=== PATIENT | female | born 1955 | race Caucasian/White ===

== ENCOUNTER → 2016-12-23 | Outpatient (CLI) | payer BC ==
[~2016-12-23] MED LIST: ALBU17AE3 IH; ALPH1TAB8 PO; AMLO5TAB2 PO; ASP325TEC PO; ASP81TEC PO; ATOR40TA70 PO; CIPR500T78 PO; CLOP75TA28 PO; DIPH25TA82 PO; DOCU100T7 PO; ENALAPRIL; FAMO20TA5 PO; FURO20TA4 PO; FURO40TA4 PO; LOSA100T28 PO; LOSA100T7 PO; LOSA1TAB23 PO; LOSA50TA6 PO; LOSARTAN PO; MELO15TA39 PO; METR500T PO; MTP25TSR PO; MULT-963 PO; OXYC-12 PO; PNT40TEC PO; POLY17PO6 PO; RT-ALBUINH IH; SENN-75 PO; SIMV20TA3 PO; TRAZ150T42 PO; [UNRECOGNIZED DRUG - CODE] PO
--- NOTE | 2016-12-23 17:16 | Diagnostic Imaging Report ---
Bilateral screening mammogram The current study was also evaluated with a Computer Aided Detection (CAD) system. Indication: Screening. No current complaints stated on the questionnaire. COMPARISON: 09/07/13 Findings: The breasts are composed of scattered for progression of densities. There are scattered benign-appearing calcifications. Allowing for technique and positional differences, no suspicious change is seen. IMPRESSION: No significant change. ACR BI-RADS Category 2: Benign findings. Result letter will be mailed to the patient. Note: At least 10% of breast cancer is not imaged by mammography. Dictated by: Dictated on workstation # [id number]
== END ==
LOC: RAD 09:54
PROVIDERS: ATTEND Family Medicine
DX: Z12.31 Encounter for screening mammogram for malignant neoplasm of breast (principal)
CPT/HCPCS: 77067

== ENCOUNTER → 2017-02-24 | Outpatient (CLI) | payer BC ==
--- NOTE | 2017-02-24 14:32 | Diagnostic Imaging Report ---
INDICATION: Right rib injury from a fall. 3 views of the right ribs do not show any displaced fractures. There is no effusion or pneumothorax. IMPRESSION: Negative right ribs. Dictated by: Dictated on workstation # [id number]
== END ==
LOC: RAD 12:27
PROVIDERS: ATTEND Nurse Practitioner Family
DX: S20.01XA Contusion of right breast, initial encounter (principal); S29.9XXA Unspecified injury of thorax, initial encounter; W19.XXXA Unspecified fall, initial encounter; Y99.8 Other external cause status
CPT/HCPCS: 71100

== ENCOUNTER → 2017-08-01 | Outpatient (CLI) | payer BC ==
--- NOTE | 2017-08-02 10:42 | Diagnostic Imaging Report ---
INDICATION: Palpable lump in the right breast. The patient reports sustaining an injury to the right breast in February at the site of the palpable abnormality. COMPARISON: Correlation is made with the prior mammograms from 12/23/2016 and 09/07/2013. RIGHT DIAGNOSTIC MAMMOGRAM: TECHNIQUE: Right-sided CC, MLO, and mediolateral 3-D mammography was performed. In addition, spot compression CC and ML views were performed. The current study was also evaluated with a Computer Aided Detection (CAD) system. FINDINGS: There is an area of increased density in the retroareolar and slightly outer aspect of the right breast, new since the prior study from December 2016. This does correlate with the area of the patient's palpable fullness and the area of injury reported by the patient. No malignant appearing microcalcifications are seen. The right axilla is unremarkable. IMPRESSION: There has been development of an area of slightly irregular increased density in the retroareolar and outer right breast at the area of palpable fullness and prior injury. Further evaluation of this area with ultrasound is recommended. RIGHT BREAST ULTRASOUND: Sonographic interrogation of the area of palpable abnormality in the right breast was performed. There is a heterogeneous region of mixed echogenicity at the 7:30 location of the right breast approximately 1-3 cm from the nipple. This area measures 4.9 x 1.0 x 2.4 cm. There is a cystic area within this. This may represent an area of prior trauma and resolving hematoma. Even so, close followup is recommended. No other abnormalities are seen. IMPRESSION: There is a mixed region of heterogeneity at the area of palpable abnormality at the 7:30 location of the right breast. This may represent an area of resolving hematoma from prior injury. Close followup with a repeat right breast ultrasound in 2-3 months is recommended to confirm resolution and improvement. If this region does not improve, biopsy may be indicated. ACR BI-RADS Category 3: Probably benign findings. Result letter will be mailed to the patient. Note: At least 10% of breast cancer is not imaged by mammography. Dictated by: Dictated on workstation # [id number]
== END ==
LOC: RAD 12:31
PROVIDERS: ATTEND Nurse Practitioner Family
DX: N63.10 Unspecified lump in the right breast, unspecified quadrant (principal)

== ENCOUNTER 2018-02-22 19:54 | Outpatient (CLI) | payer BC | END 2018-02-23 05:55 | disposition home or self-care (01) | LOC: SLEEP 19:54 | DX: G47.33 Obstructive sleep apnea (adult) (pediatric) (principal) | CPT/HCPCS: 95810 ==

== ENCOUNTER 2018-05-16 11:23 | Outpatient (RCR) | payer BC ==
[~2018-05-16 11:23] MED LIST changes: +AMLO5TAB7 PO; -LOSA100T28 PO; +LOSA100T8 PO
== END 2018-07-17 | disposition home or self-care (01) ==
LOC: CARD 11:23
PROVIDERS: ATTEND Family Medicine
DX: I48.91 Unspecified atrial fibrillation (principal); R00.2 Palpitations
CPT/HCPCS: 93270

== ENCOUNTER 2018-09-22 08:49 | Observation (INO) | payer BC ==
[~2018-09-22] VITALS: Ht 162.6 cm; Wt 122.5 kg
[~2018-09-22 08:49] MED LIST changes: -AMLO5TAB7 PO; +AMLO5TAB9 PO; +LOSA100T57 PO; -LOSA100T8 PO
--- OUTSIDE RECORDS SUMMARY | 2018-09-22 08:56 | XMS REPORT | Encounter Summary ---
Author Author [facility] Organization [facility] Address Unknown Phone Unavailable Care Team Providers Care Journeyman Power Plant Operator Name Role Phone Kena Stoner MD PCP Tata Cohen MD Unavailable Christal Anderson RN Unavailable Unavailable Karina Tobias RN Unavailable Unavailable Marisol Toth RN Unavailable Unavailable Bethany Farris MD Unavailable Alexia Goldsmith Unavailable Unavailable Keshia Reveles RN Unavailable Unavailable Reason for Visit * Auth/Cert Referred By Contact Referred To Contact Status Reason Specialty Diagnoses / Procedures Diagnoses Pulmonary HTN (HCC) Chest pain, unspecified type Procedures OK R & L HRT CATH WINJX HRT ART& L VENTR IMG OK PRQ TRLUML CORONARY STENT W/ANGIO ONE ART/BRNCH ANGIOGRAPHY CORONARY ARTERY WITH RIGHT AND LEFT HEART CATHETERIZATION POSSIBLE PERCUTANEOUS CORONARY STENT PLACEMENT WITH ANGIOPLASTY Encounter Details Care Team Description Date Type Department Lloyd Chaudhari MD [address] [facility] [place] [address] [phone] 07/06/2018 Hospital Cardiovascular Medicine Encounter [place] [address] [address] [place] [address] Social History Date Tobacco Use Types Packs/Day Years Used Never Smoker Smokeless Tobacco: Never Used Alcohol Use Drinks/Week oz/Week Comments No 0 Standard 0.0 drinks or equivalent Sex Assigned at Date Recorded Not on file Industry Job Start Date Occupation Not on file Not on file Not on file Travel End Travel History Travel Start No recent travel history available. as of this encounter Plan of Treatment Not on fileas of this encounter Procedures Comments Procedure Name Priority Date/Time Associated Diagnosis HOLTER WEARABLE ECG [facility] 07/13/2018 MONITOR CONNECT + SCAN 8:59 AM CHAIR CANER in this encounter Visit Diagnoses Not on filein this encounter
--- OUTSIDE RECORDS SUMMARY | 2018-09-22 08:56 | XMS REPORT | Encounter Summary ---
Author Author [facility] Organization [facility] Address Unknown Phone Unavailable Care Team Providers Care Corn Cutter Operator Name Role Phone Kena Stoner MD PCP Tata Cohen MD Unavailable Christal Anderson RN Unavailable Unavailable Karina Tobias RN Unavailable Unavailable Marisol Toth RN Unavailable Unavailable Bethany Farris MD Unavailable Alexia Goldsmith Unavailable Unavailable Keshia Reveles RN Unavailable Unavailable Reason for Referral * Consult, Test & Treat (Routine) Referred By Contact Referred To Contact Status Reason Specialty Diagnoses / Procedures Lloyd Chaudhari MD [address] [address] [place] [address] [address] [place] [address] No Auth Needed Cardiology Procedures REQUEST FOR CARDIOLOGY APPOINTMENT Reason for Visit * Reason Comments Cardiac Eval SVT * Consult, Test & Treat (Routine) Referred By Contact Referred To Contact Status Reason Specialty Diagnoses / Procedures Lloyd Chaudhari MD [address] [address] [place] [address] [address] [place] [address] No Auth Needed Cardiology Procedures REQUEST FOR CARDIOLOGY APPOINTMENT Encounter Details Care Team Description Date Type Department Lloyd Chaudhari MD [address] [address] [phone] Jeremy Layne MD [address] [address] [phone] Cardiac Eval (SVT) 09/21/2018 Office Visit Cardiovascular Medicine [address] [address] Social History Date Tobacco Use Types Packs/Day [...] travel history available. as of this encounter Last Filed Vital Signs Time Taken Vital Sign Reading 09/21/2018 9:43 AM CDT Blood Pressure 150/68 09/21/2018 9:43 AM CDT Pulse 55 - Temperature - - Respiratory Rate - - Oxygen Saturation - - Inhaled Oxygen - Concentration 09/21/2018 9:43 AM CDT Weight 125.6 kg (277 lb) 09/21/2018 9:43 AM CDT Height 162.6 cm (5' 4") 09/21/2018 9:43 AM CDT Body Mass Index 47.55 in this encounter Patient Instructions * Patient Instructions* China Jaquez RN - 09/21/2018 9:00 AM CDT Decrease your lasix dose to 40 mg per day for 3 days then take your lasix 80 mg on even days and Lasix 40 mg on odd days --Check your BP (Blood Pressure) daily and you may vary the time of day you check it. Monitor your blood pressure regularly Consider obtaining an automatic home blood pressure cuff if you don't already have one. Try to follow a low salt diet. If you smoke, make an honest effort to quit. Exercise helps with your blood pressure. Try to get at least 30 minutes of moderate intensity exercise at least 4 days a week. Your desired BP is with the top # less than 135 and bottom # less than 85. Call our office or your PCP if your blood pressure remains at or above the desired measurement consistently. If you have questions about your blood pressure readings, please contact the office and talk with Dr Chaudhari IMRDUR Increase the imdur to 30 mg twice per day IFsymptoms of palpitations continue call our office for an event monitor You should get an Event Monitor delivered to your home within 5 business days with instructions on how to use it. If you have questions or it does not arrive in 5 days, call our office. If you send many transmissions in just a few days or If you send transmissions with symptoms different than we've discussed, call our office and notify our nurse. f/u with Dr Chaudhari 4 - [address] weeks follow up with Dr Layne as needed In order to provide you the best care possible we ask that you follow up as below: For NON-URGENT questions please contact us through your [email or web address] account. For all medication refills please contact your pharmacy or send a request through [email or web address]. For all questions that may need to be addressed urgently please call the nursing triage line at [phone] Tuesday - Tuesday 8-5 only. Please leave a detailed message with your name, date of , and reason for your call. To schedule an appointment call [phone]. Please allow 10-15 business days for the results of any testing to be reviewed. Please call our office if you have not heard from a nurse within this time frame. in this encounter Progress Notes * Jeremy Layne MD - 09/21/2018 9:00 AM CDT Date of Service: 09/21/2018 India Blackwell is a 63 y.o. female. HPI I had the pleasure of seeing your patient India Blackwell in the [facility] as a part of the [facility] office today for initial Electrophysiolgy Consultation regarding her Tachypalpitations. She is typically followed and was referred by my partner Dr. Chaudhari, her primary supervisor denture department. Ms. Blackwell is an exceptionally pleasant 63 y.o. female, who is accompanied by her equally pleasant spouse, Shane. All data in this note, including the past medical history, was newly collected today. Her PMHx briefly includes: Palpitations; CAD S/P RCA Stent (10/2012); Hypertension; Hyperlipidemia; Pulmonary Hypertension; Morbid Obesity; Arthritis ; Prior SBO -- 10/31/12: [place], [place] - Heart Cath: EF 65%. single vessel disease. RCA - long up to 90% stenosis. PCI/Stent Promus 2.5 x 28 mm stent with reduction of stenosis to 0% residual. mild elevation left ventricular end-diastolic pressure, no significant mitral regurgitation. -- 05/10/13: MPI - Robinson. 9 min, 17 sec, 85% max pred HR. small amount of anteroapical ischemia, EF 66%, normal regional wall motion, normal LV cavity size -- 05/25/13: PCI by Dr. Tucker: Significant stenosis in the ostium of the RPDA which is a large vessel. Mild disease noted in the CFX and LAD. Successful percutaneous angioplasty using a 2.5 x 12 TREK balloon in the RPDA and a 3.25 x 15 NC TREK balloon in the RPLV using kissing balloon technique. No stent placement. -- 07/06/13: 60-70% RPDA, FFR neg, per Dr. Tucker -- 2012-06/2018: The patient was lost to follow up. -- 06/22/18: Echocardiogram: LVEF 60%, Normal LV cavity size with mild concentric LVH and normal systolic function. Technically normal diastolic function, although nearly all parameters are right at the upper limit of normal. No regional wall motion abnormalities. Normal right ventricle size and qualitative systolic function. Mild RA enlargement. Mitral annular calcification without stenosis. Aortic sclerosis without stenosis. Estimated peak systolic PA pressure=31 mmHg. Subcostal images were non-diagnostic. No obvious effusion on parasternal or apical images -- 07/05/18: OV (Dr. Chaudhari): R&LHC was recommended given the patient's complaints of SOA. She also complained of palpitations, so a Holter monitor was issued. -- 07/06/18: Cardiac Cath: Mild coronary artery disease involving the distal left main 20%, OM1 at 20%, distal RCA 20% and ostial PDA 30%. Normal pulmonary artery pressure with a mean pressure of 90 mmHg and normal cardiac index of 3.6 L/minute by thermo. Right internal jugular vein sheath and right common femoral artery sheath were sutured in place for manual pull. -- 07/06/18: Holter (48 hour): Mean HR 59 bpm, Max HR 92 bpm, Min HR 48 bpm. There was no atrial fibrillation seen. There was no atrial flutter seen. The rhythm was sinus with intermittent episodes of sinus arrhythmia. VT and QRS are within normal limits. (2213) single SVEs, (458) paired, (107) runs of SVT. (22) single VEs, trigeminy noted. Patient diary was submitted symptoms noted, patient triggered event noted. She STATES she has been experiencing symptoms of tachypalpitations over the last few months. She states thatMetoprololhas helped control her symptoms, though her symptoms are still present. has increased symptoms with activity, therefore, she decreased her activity. She states she will have tachypalpitations when walking, carrying things and has associated fatigue with her symptoms. She also reportslightheadedness. It is primarily postural. She denies any chest discomfort, shortness of breath, dizziness, near syncope or syncope, PND or orthopnea. FHx, SHx and ROS documented and I have reviewed, with some pertinent features to include: FHx of CAD (Mother). She is a Non-Smoker. Most pertinent ROS is included/discussed throughout the note, e.g. HPI and A/P. ASSESSMENT AND PLAN: -- Atrial Tachycardia -- Tachyalpitations -- CAD S/P RCA Stent (10/2012) -- Hypertension -- Hyperlipidemia -- Pulmonary Hypertension -- Morbid Obesity -- Arthritis -- Prior SBO Ms. Blackwell had documented SVT on a Holter, that appears to be an ATACH. Although there appears to be P waves before the QRS at times it is less clear and therefore I cannot definitively rule out AVNRT or another reentrant arrhythmia, but I think those are much less likely. Based on the results of the Holter Dr. Chaudhari initiated Lopressor. She states on Metoprolol and has had dramatic improvement in symptoms, but not resolution. She feels that activity brings on her palpitations and she has therefore been limiting her activities. It is important to note that when she had documented symptoms on the Holter, the majority of her rhythms were normal, but the symptoms complaint of tachypalpitations were relatively infrequent. Therefore, at this time, after we make adjustment as described below for her lightheadedness, if she still has symptoms, we will issue her a 30 day ELR and if she continues to have episodes of tachypalpitations correlating with her SVT , then we will likely stop Toprol and initiate Multaq most likely or alternatively therapy with Sotalol or Tikosyn. With regard to her lightheadedness, which almost seems to be a more significant complaint for her, at least at this time. After discussion, we will decrease her Lasix to two pills on even numbered days with one pill on odd numbered days. We will also increase her Imdur to 60 mg daily in divided doses. we also encouraged her to hydrate adequately and try wearing support stockings. PLAN: -- We will decrease her Lasix to 80 mg (two tablets) on even numbered days with 40 mg (one tablet) on odd numbered days -- We will increase her Imdur to 30 mg BID -- I have asked her to Check her BP (Blood Pressure) daily and vary the time of day she checks it. -- We discussed that exercise helps with her blood pressure and she should try to get at least 30 minutes of moderate intensity exercise at least 4 days a week. -- We discussed that her desired BP is less than 135 and less than 85. -- I asked her to try wearing 12-18 mmHg support stockings -- If she continues to have symptoms of palpitations, she will contact our office and we will issue her a monitor Ms. Blackwell was educated regarding plan of care. She was instructed to call our office with any questions or concerns, as well as to notify us of any new or worsening symptoms. She verbalized understanding. I appreciate the opportunity to participate in the care of your patient. Please do not hesitate to contact me directly if you have any questions or further insights into her care. I have scheduled her follow-up with me in 4-6 weeks. Vitals: 09/21/18 0943 BP: 150/68 Pulse: 55 Weight: 125.6 kg (277 lb) Height: 1.626 m (5' 4") Body mass index is 47.55 kg/m. Past Medical History Patient Active Problem List Diagnosis Date Noted Pulmonary hypertension due to left ventricular diastolic dysfunction (HCC) 06/23/2018 Shortness of breath 06/23/2018 Morbid obesity with BMI of 45.0-49.9, adult ([facility]) 06/23/2018 Angina of effort ([facility]) 07/06/2013 CAD (coronary artery disease) 05/15/2013 10/31/12 Via [facility], [place] - Heart Cath: EF 65%. single vessel disease. RCA - long up to 90% stenosis. PCI/Stent Promus 2.5 x 28 mm stent with reduction of stenosis to 0% residual. mild elevation left ventricular end-diastolic pressure, no significant mitral regurgitation. 05/10/13 MPI - Robinson. 9 min, 17 sec, 85% max pred HR. small amount of anteroapical ischemia, EF 66%, normal regional wall motion, normal left ventricular cavity size. 05/25/13: PCI by Dr. Tucker: Significant stenosis in the ostium of the RPDA which is a large vessel. Mild disease noted in the CFX and LAD. Successful percutaneous angioplasty using a 2.5 x 12 TREK balloon in the RPDA and a 3.25 x 15 NC TREK balloon in the RPLV using kissing balloon technique. No stent placement. 07/06/13: 60-70% RPDA, FFR neg, per Dr. Tucker Hypertension 05/15/2013 Hyperlipidemia 05/15/2013 Review of Systems Constitution: Positive for weakness. HENT: Negative. Eyes: Positive for blurred vision. Cardiovascular: Positive for chest pain, dyspnea on exertion, irregular heartbeat, leg swelling, near-syncope, palpitations and paroxysmal nocturnal dyspnea. Respiratory: Negative. Endocrine: Positive for polydipsia and polyuria. Hematologic/Lymphatic: Negative. Skin: Positive for dry skin. Musculoskeletal: Positive for arthritis. Gastrointestinal: Positive for excessive appetite and melena. Genitourinary: Positive for bladder incontinence, decreased libido and incomplete emptying. Neurological: Positive for dizziness, headaches and loss of balance. Psychiatric/Behavioral: Positive for depression and memory loss. The patient has insomnia and is nervous/anxious. Allergic/Immunologic: Negative. Physical Exam Constitutional: She is in no acute distress, resting comfortably. Skin/Integument: Warm and dry. Eyes: PERRL, sclera are non-icteric and no xanthelasmas noted. ENT: Hearing is intact, Oropharynx is clear and moist. Heme/Lym/Immun: Supple neck, without thyromegaly. Respiratory-Pulmonary/Chest: Effort normal and breath sounds normal. No respiratory distress or accessory muscle use. No obvious tracheal deviation. Clear to auscultation bilaterally. Cardiovascular: No evidence of increased jugular venous pressure, carotids are 2+/4+ equal bilaterally, without obvious bruit. Regular rhythm, S1, S2. 2/6 systolic murmur HBA the LLSB. No heaves, thrills or rubs. Musc/Skeletal-Extremities: Without significant peripheral edema. With what appears to be full ROM. Neuro: Patient is alert and oriented to person, place, and time. Psych: Patient does not appear anxious, she appears appropriate, with normal non-pressured speech and what appears to be appropriate judgement Cardiovascular Studies ECG today demonstrates sinus rhythm at 55 bpm with RBBB. No evidence of preexcitation. Problems Addressed Today Encounter Diagnoses Name Primary? Essential hypertension Yes Coronary artery disease involving [place] coronary artery of [place] heart without angina pectoris Palpitations Current Medications (including today's revisions) amLODIPine (NORVASC) 5 mg tablet Take 1 Tab by mouth daily. (Patient taking differently: Take 5 mg by mouth twice daily.) aspirin EC 81 mg tablet Take 81 mg by mouth daily. atorvastatin (LIPITOR) 40 mg tablet Take 1 Tab by mouth daily. diphenhydrAMINE (BENADRYL) 25 mg capsule Take 50 mg by mouth every 6 hours as needed. docusate (COLACE) 100 mg capsule Take 100 mg by mouth twice daily. ferrous sulfate (IRON PO) Take by mouth. furosemide (LASIX) 40 mg tablet Take one tablet by mouth every morning. for 3 days, then 80 mg even days, 40 mg odd days isosorbide mononitrate SR (IMDUR) 30 mg tablet Take one tablet by mouth twice daily. losartan(+) (COZAAR) 100 mg tablet Take 100 mg by mouth daily. meloxicam (MOBIC) 15 mg tablet Take 15 mg by mouth daily. metoprolol XL (TOPROL XL) 25 mg extended release tablet Take one tablet by mouth daily. OXYGEN-AIR DELIVERY SYSTEMS [facility] Use 2 L as directed. polyethylene glycol 3350 (MIRALAX) 17 g packet Take 17 g by mouth daily. traZODone (DESYREL) 50 mg tablet Take 75 mg by mouth at bedtime as needed. Documentation recorded by Michael Pablo, acting as scribe for Jeremy Layne M.D. in this encounter Plan of Treatment Order Schedule Name Priority Associated Diagnoses Ordered: 09/21/2018 ECG 12-LEAD Routine Essential hypertension Coronary artery disease involving [place] coronary artery of [place] heart without angina pectoris Palpitations as of this encounter Visit Diagnoses Diagnosis Essential hypertension - Primary Unspecified essential hypertension Coronary artery disease involving [place] coronary artery of [place] heart without angina pectoris Palpitations in this encounter
--- OUTSIDE RECORDS SUMMARY | 2018-09-22 08:56 | XMS REPORT | Encounter Summary ---
Author Author [facility] Organization [facility] Address Unknown Phone Unavailable Care Team Providers Care Manager Ambulatory Name Role Phone Kena Stoner MD PCP Tata Cohen MD Unavailable Christal Anderson RN Unavailable Unavailable Karina Tobias RN Unavailable Unavailable Marisol Toth RN Unavailable Unavailable Bethany Farris MD Unavailable Alexia Goldsmith Unavailable Unavailable Keshia Revelse RN Unavailable Unavailable Reason for Visit * Reason Comments Cardiac Device Remote Holter placed on patient and enrolled Enrollment Encounter Details Care Team Description Date Type Department Sam Hay Cardiac Device Remote Enrollment (Holter placed on patient and enrolled) 07/06/2018 Documentation Cardiovascular Medicine [facility] [place] [address] Social History Date Tobacco Use Types Packs/Day [...] travel history available. as of this encounter Progress Notes * Sam Hay - 07/06/2018 5:22 PM FARMWORK[employer] Holter Placement Record Ordering Physician: Lloyd Chaudhari Diagnosis: Chest pain Brand: CN Length: 48 hours Holter Number: [id number] Card Number: N/A [facility] where Holter was [facility] Will Holter be returned by mail? 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
--- OUTSIDE RECORDS SUMMARY | 2018-09-22 08:56 | XMS REPORT | Clinical Summary ---
Author Author [facility] Organization [facility] Address Unknown Phone Unavailable Care Team Providers Care Chief Estimator Name Role Phone Kena Stoner MD PCP Tata Cohen MD Unavailable Christal Anderson RN Unavailable Unavailable Karina Tobias RN Unavailable Unavailable Marisol Toth RN Unavailable Unavailable Bethany Farris MD Unavailable Alexia Goldsmith Unavailable Unavailable Keshia Reveles RN Unavailable Unavailable Source Comments Some departments are not documenting in the electronic medical record. If you do not see the information that you expected, contact Release of Information in the Health Information Management department at [phone] for further assistance in locating additional records.[facility] Allergies Comments Active Allergy Reactions Severity Noted Date Fish Containing Products ANAPHYLAXIS 05/16/2013 Medications End Date Status Medication Sig Dispensed Refills Start Date Active diphenhydrAMINE Take 50 mg by 0 (BENADRYL) 25 mg capsule mouth every 6 hours as needed. Active docusate (COLACE) 100 mg Take 100 mg 0 capsule by mouth twice daily. Active traZODone (DESYREL) 50 mg Take 75 mg by 0 tablet mouth at bedtime as needed. Active losartan(+) (COZAAR) 100 Take 100 mg 0 mg tablet by mouth daily. Active amLODIPine (NORVASC) 5 mg Take 1 Tab by 90 Tab 3 tabletIndications: mouth daily. 3 Hypertension Active atorvastatin (LIPITOR) 40 Take 1 Tab by 90 Tab 3 mg tablet mouth daily. 3 Active aspirin EC 81 mg tablet Take 81 mg by 0 mouth daily. Active meloxicam (MOBIC) 15 mg Take 15 mg by 0 tablet mouth daily. Active ferrous sulfate (IRON PO) Take by 0 mouth. Active polyethylene glycol 3350 Take 17 g by 0 (MIRALAX) 17 g packet mouth daily. Active metoprolol XL (TOPROL XL) Take one 90 tablet 3 25 mg extended release tablet by 9 tablet mouth daily. Active OXYGEN-AIR DELIVERY Use 2 L as 0 SYSTEMS MISC directed. Active furosemide (LASIX) 40 mg Take one 270 tablet 3 tablet tablet by 9 mouth every morning. for 3 days, then 80 mg even days, 40 mg odd days Active isosorbide mononitrate SR Take one 180 tablet 3 (IMDUR) 30 mg tablet tablet by 9 mouth twice daily. 09/21/2018 Discontinued isosorbide mononitrate SR Take 0.5 Tabs 90 Tab 3 (IMDUR) 30 mg by mouth 3 tabletIndications: CAD daily. (coronary artery disease) 09/21/2018 Discontinued furosemide (LASIX) 40 mg Take 40 mg by 0 tablet mouth daily. 2 tabs q am Active Problems Problem Noted Date Pulmonary hypertension due to left ventricular diastolic dysfunction 2017 Last Assessment & Plan: Plan for L/RHC with coronary angiography tomorrow for further evaluation. Shortness of breath 06/23/2018 Morbid obesity with BMI of 45.0-49.9, adult 06/23/2018 Angina of effort 07/06/2013 CAD (coronary artery disease) 05/15/2013 Overview: 10/31/12 [address] [place], [place] - Heart Cath: EF 65%. single [...] 07/06/13: 60-70% RPDA, FFR neg, per Dr. Caitlin Singh ast Assessment & Plan: We will plan to perform angiography to check for obstructive CAD as the etiology of her symptoms. Hypertension 05/15/2013 Last Assessment & Plan: Not currently well controlled. We will re-evaluate when she is admitted, but I anticipate adding HCTZ to her regimen. Goal BP <130/80. Hyperlipidemia 05/15/2013 Encounters Care Team Description Date Type Specialty Lloyd Chaudhari MD Emert, Martin P, MD Cardiac Eval (SVT) 09/21/2018 Office Visit Cardiology Aubrie Martínez RN Dizziness 08/21/2018 Telephone Cardiology Carol Patel RN Results 08/01/2018 Telephone Cardiology Aubrie Martínez RN Event Monitor Results 07/28/2018 Telephone Cardiology Lloyd Chaudhari MD 07/06/2018 Hospital Cardiology Encounter Lloyd Chaudhari MD ANGIOGRAPHY CORONARY ARTERY WITH RIGHT AND LEFT HEART CATHETERIZATION 07/06/2018 Surgery Cardiology Lloyd Chaudhari MD Angina of effort (HCC) 07/06/2018 Hospital Cardiology Encounter Sam Hay Cardiac Device Remote Enrollment (Holter placed on patient and enrolled) 07/06/2018 Documentation Cardiology Lloyd Chaudhari MD 07/05/2018 Hospital Cardiology Encounter Lloyd Chaudhari MD New To Provider (H&P for heart cath) 07/05/2018 Office Visit Cardiology Lore Collins APRN 07/03/2018 Pre-Admit Cardiology Orders Only Earnest Deleon RN Precertification (Approval for RHC with [facility] through [employer] [place]) 06/29/2018 Documentation Cardiology Aubrie Martínez RN Pulmonary HTN (HCC) (Primary Dx); Chest pain, unspecified type 06/28/2018 Prep for Case Cardiology from Last 3 Months Family History Medical History Relation Name Comments Coronary Artery Disease Mother Relation Name Status Comments Mother Social History Date Tobacco Use Types Packs/Day Years Used Never Smoker Smokeless Tobacco: Never Used Alcohol Use Drinks/Week oz/Week Comments No 0 Standard 0.0 drinks or equivalent Sex Assigned at Date Recorded Not on file Industry Job Start Date Occupation Not on file Not on file Not on file Travel End Travel History Travel Start No recent travel history available. Last Filed Vital Signs Time Taken Vital Sign Reading 09/21/2018 9:43 AM CDT Blood Pressure 150/68 09/21/2018 9:43 AM CDT Pulse 55 07/06/2018 11:41 AM MECHANIC HELPER Temperature 36.8 C (98.2 F) 06/22/2018 9:55 AM MECHANIC HELPER Respiratory Rate 16 07/06/2018 12:45 PM MECHANIC HELPER Oxygen Saturation 96% - Inhaled Oxygen - Concentration 09/21/2018 9:43 AM CDT Weight 125.6 kg (277 lb) 09/21/2018 9:43 AM CDT Height 162.6 cm (5' 4") 09/21/2018 9:43 AM CDT Body Mass Index 47.55 Plan of Treatment Health Maintenance Due Date Last Done Comments HEPATITIS C SCREENING 1955 PHYSICAL (COMPREHENSIVE) 1962 EXAM HIV SCREENING 1970 DTAP/TDAP VACCINES (1 - 1973 Tdap) CERVICAL CANCER SCREENING 1985 BREAST CANCER SCREENING 1995 INFLUENZA VACCINE 02/08/2018 SHINGLES RECOMBINANT 05/24/2018 03/29/2018 VACCINE (2 of 2) COLORECTAL CANCER 06/26/2025 06/26/2015 SCREENING Procedures Comments Procedure Name Priority Date/Time Associated Diagnosis HOLTER WEARABLE ECG MARCO 07/13/2018 MONITOR CONNECT + SCAN 8:59 AM MECHANIC HELPER CARDIAC CATH REPORT 07/06/2018 2:20 PM MECHANIC HELPER O2HGB SAT-VENOUS POC 07/06/2018 10:43 AM MECHANIC HELPER O2HGB SAT-VENOUS POC 07/06/2018 10:41 AM MECHANIC HELPER CARDIAC CATH REPORT Routine 07/06/2018 Pulmonary HTN (HCC) 8:01 AM MECHANIC HELPER Chest pain, unspecified type TELEMETRY STRIPS-SCAN 07/06/2018 12:00 AM MECHANIC HELPER PROCEDURE RECORD-SCAN 07/06/2018 12:00 AM MECHANIC HELPER CBC Routine 07/05/2018 Pulmonary hypertension 10:42 AM MECHANIC HELPER due to left ventricular diastolic dysfunction (HCC) BASIC METABOLIC PANEL Routine 07/05/2018 Pulmonary hypertension 10:42 AM MECHANIC HELPER due to left ventricular diastolic dysfunction (HCC) ECG-SCAN 07/05/2018 12:00 AM MECHANIC HELPER CARDIAC CATH REPORT Routine 06/28/2018 Pulmonary HTN (HCC) 12:32 PM MECHANIC HELPER Chest pain, unspecified type from Last 3 Months Results * HOLTER WEARABLE ECG MONITOR CONNECT + SCAN (07/13/2018 8:59 AM MECHANIC HELPER) Narrative Performed At OTHER OUTSIDE LAB Indication: Chest Pain Hookup date: 07/06/2018. Scan date: 07/13/2018. Start time: 12:40. The predominant rhythm shows sinus rhythm. Total beats recorded: [id number] Analysis time: 47 hr 49 min Mean HR: 59 bpm Maximum HR: 92 bpm at 09 hr 05 min on day 2 Minimum HR: 48 bpm at 05 hr 04 min on day 3 Ventricular prematurities - total: 25 Ventricular prematurities - pairs: 0 Ventricular prematurities - runs: 0 Supraventricular prematurities - total: 3147 Supraventricular prematurities - pairs: 458 Supraventricular prematurities - runs: 107 Supraventricular longest run: 23 beats at 17 hr 41 min on day 2 Supraventricular fastest run: 3 bpm at 07 hr 35 min on day 3 Junctional prematurities - total: 0 Pauses greater than 2 sec: 0 There is no atrial fibrillation seen. There is no atrial flutter seen. 1. The rhythm was sinus with intermittent episodes of sinus arrhythmia. 2. IA and QRS are within normal limits. 3. (2213) single SVEs, (458) paired, (107) runs of SVT. 4. (22) single VEs, trigeminy noted. 5. Patient diary was submitted symptoms noted, patient triggered event noted. Performing Organization Address City/State/Zipcode Phone Number OTHER OUTSIDE LAB * CARDIAC CATH REPORT (07/06/2018 2:20 PM MECHANIC HELPER) Procedure Note Lloyd Chaudhari MD - 07/06/2018 2:20 PM MECHANIC HELPER [facility] CARDIAC CATHETERIZATION REPORT Page 2 INDIA Cuevas : 1955 KU#: [id number] KU MR #/Billing ID #: [id number] / [id number] DATE: 07/06/2018 VRT MECHANIC: Lloyd Chaudhari MD DICTATING PROVIDER: Prieto Lyons MD REFERRING PHYSICIAN: CATHETERIZATION REPORT: Interventional Cardiology, Dr. Lloyd Chaudhari. Interventional business analyst sales operations, Prieto Lyons MD. PROCEDURE: 1. Left heart catheterization without ventriculogram. 2. Left coronary artery angiogram. 3. Right coronary artery angiogram. 4. Right heart catheterization. 5. Right internal jugular vein sheath and right common femoral artery sheath were sutured in place for manual pull. INDICATIONS PROCEDURE: Mrs. Blackwell is a 63-year-old female with a past medical history of hypertension , hyperlipidemia, coronary artery disease with history of PCI to the right coronary artery that was balloon angioplastied at the ostium of the PDA and a stent from the distal RCA to the posterolateral. has been having shortness of breath with minimal exertion and therefore she was brought in to the labor employment associate today for coronary evaluation and right heart catheterization. Consent: Informed consent was obtained from the patient after explaining all the benefits and risks of this procedure, which include, but not limited to , stroke, myocardial infarction, bleeding, infection, allergic reaction to contrast dye, aortic dissection, need for emergent bypass surgery, need for temporary pacemaker, need for temporary or permanent hemodialysis, groin hematoma, retroperitoneal hematoma, and cardiac tamponade. was also notified that Interventional business analyst sales operations will be assisting during the course of this procedure. informed consent was placed in the patient's chart. DESCRIPTION AND FINDINGS OF OPERATIVE PROCEDURE: After consent was obtained, patient was brought in the labor employment associate in a fasting state where she was prepped and draped in usual sterile fashion. out was obtained to verify patient, as well as site and type of the procedure. mL of 1% lidocaine was administered to the right neck and then with direct ultrasound guidance, we accessed the right internal jugular vein and an 8-Spanish [place] sheath was inserted. we advanced our 7-Spanish [place]-Ivy catheter. got sequential pressure in the RA, RV, PA and pulmonary capillary wedge pressure. also calculated cardiac output by Tri principle and measured cardiac output by thermodilution. , the current catheter was removed and then we attempted to get right radial artery access, we were not able to, given radial artery spasm . , we switched to the groin and 10 mL of 1% lidocaine was administered to incise the area over the right common femoral artery and with fluoroscopy guidance, we accessed the right common femoral artery with micropuncture needle and 5-Spanish pinnacle sheath was inserted. did the left heart catheterization using a TIG 4.0 5-Spanish catheter. see details of findings below. that, the catheter was removed and sheath was sutured in place for manual pull. Total contrast media on this study, amount used: mL of Isovue-370. Fluoro time was 3.0 minutes. Air Kerma total 325 mGy. Total conscious sedation time for this patient was [address] Chaudhari was physically present throughout the procedure, directly supervised the procedure, performed hercules portions of it. Hemodynamics findings: 1. Blood pressure 174/67 with a mean of 94, a heart rate of 63. 2. RA pressure 3 mmHg. 3. RV pressure 36/2. 4. PA pressure 31/11 with a mean of 19. 5. Pulmonary capillary wedge pressure 10 mmHg. 6. transpulmonary gradient 9 mmHg. 7. Pulmonary vascular resistance 1.1 Wood. 8. Cardiac output by thermodilution 7.8 L/minute with a cardiac index 3.6 L/ minute/sq m. 9. LV systolic pressure 177, LVEDP of 20 mmHg. 10. Aortic sat 100%. 11. RA sat 81%. 12. PA sat 78%. CORONARY ARTERIOGRAPHY: 1. Left main:from the left coronary cusp, bifurcates into LAD and left circumflex. was 20% distal left main disease. 2. LAD: It is a type 3 LAD that wraps around the apex, gives rise to multiple septal and diagonal branches with no significant disease. 3. Left circumflex arteryrise to 3 OM branches. has a 20% disease. , no significant disease. 4. Right coronary artery, there was 20% distal RCA disease. was 30% ostial PDA disease, unchanged from before. intervention was done. Conclusion: 1. Mild coronary artery disease involving the distal left main 20%, OM1 at 20% , distal RCA 20% and ostial PDA 30%. 2. Normal pulmonary artery pressure with a mean pressure of 90 mmHg and normal cardiac index of 3.6 L/minute by thermo. 3. Right internal jugular vein sheath and right common femoral artery sheath were sutured in place for manual pull. Recommendations: The patient has minimal coronary artery disease. patient is to continue medical therapy including aspirin, high-intensity statin, and beta-aishwarya as tolerated. Plan was discussed with Dr. Chaudhari, Interventional Cardiology attending who was physically present throughout the procedure, directly supervised the procedure and performed hercules portions of it. I was present during the entire procedure. I assisted and supervised the fellow' s action and agree with the assessment and recommendations as outlined above. Lloyd Chaudhari MD BLOOD / MEDRomario Job #: /[id number] p cc: Performing Organization Address City/[facility] Phone Number OTHER OUTSIDE LAB * O2HGB SAT-VENOUS POC (07/06/2018 10:43 AM MECHANIC HELPER) Only the most recent of 2 results within the time period is included. O2HGB SAT-Venous POC 77.8 (H) 55 - 71 % MAIN LAB Performing Organization Address [facility] Phone Number MAIN LAB [address] [place] [address] * TELEMETRY STRIPS-SCAN (07/06/2018 12:00 AM MECHANIC HELPER) Narrative Performed At Ordered by an unspecified provider. * PROCEDURE RECORD-SCAN (07/06/2018 12:00 AM MECHANIC HELPER) Narrative Performed At Ordered by an unspecified provider. * CBC (07/05/2018 10:42 AM MECHANIC HELPER) White Blood Cells 6.9 4.5 - 11.0 K/UL [facility] MAIN LAB RBC 4.52 4.0 - 5.0 M/UL [facility] MAIN LAB Hemoglobin 12.4 12.0 - 15.0 GM/DL [facility] MAIN LAB Hematocrit 37.4 36 - 45 % [facility] MAIN LAB MCV 82.7 80 - 100 FL [facility] MAIN LAB MCH 27.4 26 - 34 PG [facility] MAIN LAB MCHC 33.2 32.0 - 36.0 G/DL MAIN LAB RDW 13.8 11 - 15 % [facility] MAIN LAB Platelet Count 258 150 - 400 K/UL [facility] MAIN LAB MPV 8.4 7 - 11 FL [facility] MAIN LAB Specimen Blood Performing Organization Address [facility] Phone Number MAIN LAB [address] [place] [address] * BASIC METABOLIC PANEL (07/05/2018 10:42 AM MECHANIC HELPER) Sodium 141 137 - 147 MMOL/L [facility] MAIN LAB Potassium 4.3 3.5 - 5.1 MMOL/L [facility] MAIN LAB Chloride 105 98 - 110 MMOL/L [facility] MAIN LAB CO2 29 21 - 30 MMOL/L [facility] MAIN LAB Anion Gap 7 3 - 12 [facility] MAIN LAB Glucose 109 (H) 70 - 100 MG/DL [facility] MAIN LAB Blood Urea Nitrogen 25 7 - 25 MG/DL [facility] MAIN LAB Creatinine 0.94 0.4 - 1.00 MG/DL [facility] MAIN LAB Calcium 9.5 8.5 - 10.6 MG/DL [facility] MAIN LAB eGFR Non >60 >60 mL/min [facility] MAIN LAB Comment: The eGFR is not validated for use in drug dosing adjustments.Continue to use estimated creatinine clearance per dosing reference text.Please contact the Clinical Pharmacist for questions. eGFR >60 >60 mL/min [facility] MAIN LAB Comment: The eGFR is not validated for use in drug dosing adjustments.Continue to use estimated creatinine clearance per dosing reference text.Please contact the Clinical Pharmacist for questions. Specimen Blood Performing Organization Address City/State/Zipcode Phone Number MAIN LAB [address] [place] [address] * ECG-SCAN (07/05/2018 12:00 AM MECHANIC HELPER) Narrative Performed At Ordered by an unspecified provider. from Last 3 Months Insurance Payer Benefit Subscriber ID Type Phone Address Plan / Group [facility] xxxxxxxxxxxx [facility] Advance Directives Patient has advance care planning documents, and code status on file. For more information, please contact: [facility] [address] [place] [address] Date Inactivated Comments Code Status Date Activated 07/06/2018 4:26 PM Full Code 07/06/2018 8:08 AM Provider has discussed Code Status No, discussion not w/Patient or Family? necessary based on Dx 07/07/2013 11:56 AM Full Code 07/06/2013 6:26 AM Provider has discussed Code Status No, more discussion w/Patient or Family? needed 05/26/2013 11:08 AM Full Code 05/25/2013 7:41 AM Provider has discussed Code Status No, more discussion w/Patient or Family? needed
--- OUTSIDE RECORDS SUMMARY | 2018-09-22 08:56 | XMS REPORT | Encounter Summary ---
Author Author [facility] Organization [facility] Address Unknown Phone Unavailable Care Team Providers Care Pathology Technologist Name Role Phone Kena Stoner MD PCP [...] HTN (HCC) Chest pain, unspecified type Procedures CO R & L HRT CATH WINJX HRT ART& L VENTR IMG CO PRQ TRLUML CORONARY STENT W/ANGIO ONE ART/BRNCH ANGIOGRAPHY CORONARY ARTERY WITH RIGHT AND LEFT HEART CATHETERIZATION POSSIBLE PERCUTANEOUS CORONARY STENT PLACEMENT WITH ANGIOPLASTY Encounter Details Care Team Description Date Type Department Lloyd Chaudhari MD [address] [facility] [place] [address] ANGIOGRAPHY CORONARY ARTERY WITH RIGHT AND LEFT HEART CATHETERIZATION 07/06/2018 Surgery Cardiac Catheterization Laboratory [address] [place] [address] Social History Date Tobacco Use [...] Vital Signs Time Taken Vital Sign Reading 07/06/2018 12:45 PM TALENT DEVELOPMENT COORDINATOR Blood Pressure 177/59 07/06/2018 12:45 PM TALENT DEVELOPMENT COORDINATOR Pulse 54 07/06/2018 11:41 AM TALENT DEVELOPMENT COORDINATOR Temperature 36.8 C (98.2 F) - Respiratory Rate - 07/06/2018 12:45 PM TALENT DEVELOPMENT COORDINATOR Oxygen Saturation 96% - Inhaled Oxygen - Concentration 07/06/2018 8:16 AM TALENT DEVELOPMENT COORDINATOR Weight 117.4 kg (258 lb 13.1 oz) 07/06/2018 8:16 AM TALENT DEVELOPMENT COORDINATOR Height 162.6 cm (5' 4") 07/06/2018 8:16 AM TALENT DEVELOPMENT COORDINATOR Body Mass Index 44.43 in this encounter Medications at Time of Discharge Start Date End Date Medication Sig Dispensed Refills 05/16/2013 amLODIPine (NORVASC) 5 mg Take 1 Tab by 90 Tab 3 tabletIndications: mouth daily. Hypertension aspirin EC 81 mg tablet Take 81 mg by 0 mouth daily. 05/21/2013 atorvastatin (LIPITOR) 40 Take 1 Tab by 90 Tab 3 mg tablet mouth daily. diphenhydrAMINE Take 50 mg by 0 (BENADRYL) 25 mg capsule mouth every 6 hours as needed. docusate (COLACE) 100 mg Take 100 mg 0 capsule by mouth twice daily. ferrous sulfate (IRON PO) Take by 0 mouth. losartan(+) (COZAAR) 100 Take 100 mg 0 mg tablet by mouth daily. meloxicam (MOBIC) 15 mg Take 15 mg by 0 tablet mouth daily. polyethylene glycol 3350 Take 17 g by 0 (MIRALAX) 17 g packet mouth daily. traZODone (DESYREL) 50 mg Take 75 mg by 0 tablet mouth at bedtime as needed. 09/21/2018 furosemide (LASIX) 40 mg Take 40 mg by 0 tablet mouth daily. 2 tabs q am 07/06/2013 09/21/2018 isosorbide mononitrate SR Take 0.5 Tabs 90 Tab 3 (IMDUR) 30 mg by mouth tabletIndications: CAD daily. (coronary artery disease) as of this encounter Plan of Treatment Not on fileas of this encounter Procedures Comments Procedure Name Priority Date/Time Associated Diagnosis HOLTER WEARABLE ECG MARCO 07/13/2018 MONITOR CONNECT + SCAN 8:59 AM TALENT DEVELOPMENT COORDINATOR CARDIAC CATH REPORT 07/06/2018 2:20 PM TALENT DEVELOPMENT COORDINATOR O2HGB SAT-VENOUS POC 07/06/2018 10:43 AM TALENT DEVELOPMENT COORDINATOR O2HGB SAT-VENOUS POC 07/06/2018 10:41 AM TALENT DEVELOPMENT COORDINATOR CARDIAC CATH REPORT Routine 07/06/2018 Pulmonary HTN (HCC) 8:01 AM TALENT DEVELOPMENT COORDINATOR Chest pain, unspecified type TELEMETRY STRIPS-SCAN 07/06/2018 12:00 AM TALENT DEVELOPMENT COORDINATOR PROCEDURE RECORD-SCAN 07/06/2018 12:00 AM TALENT DEVELOPMENT COORDINATOR CARDIAC CATH REPORT Routine 06/28/2018 Pulmonary HTN (HCC) 12:32 PM TALENT DEVELOPMENT COORDINATOR Chest pain, unspecified type in this encounter Results * HOLTER WEARABLE ECG MONITOR CONNECT + SCAN (07/13/2018 8:59 AM TALENT DEVELOPMENT COORDINATOR) Narrative Performed At OTHER OUTSIDE LAB Indication: Chest Pain Hookup date: 07/06/2018. Scan date: 07/13/2018. Start time: 12:40. The predominant rhythm shows sinus rhythm. Total beats recorded: [id number] Analysis time: 47 hr 49 min Mean [...] with intermittent episodes of sinus arrhythmia. 2. CO and QRS are within normal limits. 3. (2213) single SVEs, (458) paired, (107) runs of SVT. 4. (22) single VEs, trigeminy noted. 5. Patient diary was submitted symptoms noted, patient triggered event noted. Performing Organization Address City/State/Zipcode Phone Number OTHER OUTSIDE LAB * CARDIAC CATH REPORT (07/06/2018 2:20 PM TALENT DEVELOPMENT COORDINATOR) Procedure Note Earnest, Lloyd B, MD - 07/06/2018 2:20 PM TALENT DEVELOPMENT COORDINATOR [facility] CARDIAC CATHETERIZATION REPORT Page 2 [place] : 1955 #: [id number] MR #/Billing ID #: [id number] / [id number] DATE: 07/06/2018 BUSINESS SUPPORT ASSOCIATE: Lloyd Chaudhari MD DICTATING PROVIDER: Prieto Lyons MD REFERRING PHYSICIAN: CATHETERIZATION REPORT: Interventional Cardiology, Dr. Lloyd hCaudhari. Interventional paper and prints restorer, Prieto Lyons MD. PROCEDURE: 1. Left heart catheterization without ventriculogram. 2. Left coronary artery angiogram. 3. Right coronary artery angiogram. 4. Right heart catheterization. 5. Right internal jugular vein sheath and right common femoral artery sheath were sutured in place for manual pull. INDICATIONS PROCEDURE: Mrs. Blacwkell is a 63-year-old female with a past medical history of hypertension , hyperlipidemia, coronary artery disease with history of PCI to the right coronary artery that was balloon angioplastied at the ostium of the PDA and a stent from the distal RCA to the posterolateral. has been having shortness of breath with minimal exertion and therefore she was brought in to the cardiac cath technologist today for coronary evaluation and right heart [...] cardiac tamponade. was also notified that Interventional paper and prints restorer will be assisting during the course of this procedure. informed consent was placed in the patient's chart. DESCRIPTION AND FINDINGS OF OPERATIVE PROCEDURE: After consent was obtained, patient was brought in the cardiac cath technologist in a fasting state where she was prepped and draped in usual sterile fashion. out was obtained to verify patient, as well as site and type of the procedure. mL of 1% lidocaine was administered to the right neck and then with direct ultrasound guidance, we accessed the right internal jugular vein and an 8-Malian [place] sheath was inserted. we advanced our 7-Malian [place] catheter. got sequential pressure in the RA, [...] common femoral artery with micropuncture needle and 5-Malian [place] sheath was inserted. did the left heart catheterization using a TIG 4.0 5-Malian catheter. see details of findings below. that, [...] outlined above. Lloyd Chaudhari MD BLOOD / DARWIN Job #: /[id number] p cc: Performing Organization Address [facility] Phone Number [facility] * O2HGB SAT-VENOUS POC (07/06/2018 10:43 AM TALENT DEVELOPMENT COORDINATOR) O2HGB SAT-Venous POC 77.8 (H) 55 - 71 % MAIN LAB Performing Organization Address [facility] Phone Number MAIN LAB [address] [place] [address] * O2HGB SAT-VENOUS POC (07/06/2018 10:41 AM TALENT DEVELOPMENT COORDINATOR) O2HGB SAT-Venous POC 80.6 (H) 55 - 71 % MAIN LAB Performing Organization Address [facility] Phone Number MAIN LAB [address] [place] [address] * TELEMETRY STRIPS-SCAN (07/06/2018 12:00 AM TALENT DEVELOPMENT COORDINATOR) Narrative Performed At Ordered by an unspecified provider. * PROCEDURE RECORD-SCAN (07/06/2018 12:00 AM TALENT DEVELOPMENT COORDINATOR) Narrative Performed At Ordered by an unspecified provider. in this encounter Visit Diagnoses Diagnosis Pulmonary HTN (HCC) Other chronic pulmonary heart diseases Chest pain, unspecified type in this encounter Administered Medications Action Date Dose Rate Site Medication Order MAR Action acetaminophen (TYLENOL) tablet 650 mg 650 mg, Oral, EVERY 4 HOURS PRN, Starting Damaris 18 at 0807, Until Damaris 07/06/18 at 1621, Pain non-opioid: may be used alone or in combination with opioid analgesia, TOTAL ACETAMINOPHEN DOSE NOT TO EXCEED 4GM DAILY, Admission/Obs/Extended Recovery aluminum/magnesium hydroxide (MAALOX) oral suspension 30 mL 30 mL, Oral, EVERY 4 HOURS PRN, Starting Damaris 18 at 0807, Until Damaris 18 at 1621, Indigestion/Heartburn, Admission/Obs/Extended Recovery diphenhydrAMINE (BENADRYL) capsule 25 mg 25 mg, Oral, EVERY 4 HOURS PRN, Starting Damaris 18 at 1126, Until Damaris 07/06/18 at 1621, Rash diphenhydrAMINE (BENADRYL) injection 25 mg 25 mg, Intravenous, EVERY 4 HOURS PRN, Starting Damaris 18 at 1126, Until Damaris 07/06/18 at 1621, Rash lidocaine PF 1% (10 mg/mL) injection 0.1-2 mL 0.1-2 mL, Injection, NEEDED, Starting Damaris 18 at 0807, Until Damaris 18 at 1621, Other..., for peripheral IV insertion, Pre-Op milk of magnesia (CONC) oral suspension 10 mL 10 mL, Oral, EVERY 6 HOURS PRN, Starting Damaris 18 at 0807, Until Damaris 18 at 1621, Constipation PO, 10 mL CONC=30 mL MOM., Admission/Obs/Extended Recovery ondansetron (ZOFRAN) injection 4 mg 4 mg, Intravenous, EVERY 6 HOURS PRN, Starting Damaris 18 at 1126, Until Damaris 18 at 1621, Nausea/Vomiting Injectable sodium chloride 0.9 % infusion 250 mL, 250 mL, Intravenous, at 75 mL/hr, NEEDED, Starting Damaris 07/06/18 at 0807, Until Damaris 18 at 1621, Other..., eGFR < 60, For Acute Kidney Injury Prophylaxis, if eGFR < 60, administer a bolus of 250 mL 0.9% normal saline; follow with continuous infusion as ordered. - Inpatients: Hold for patients admitted with primary diagnosis of heart failure, EF < 35%, or symptoms of volume overload. - Same Day Admits/Outpatient: Hold for EF < 35% or symptoms of volume overload., Pre-Op 07/06/2018 12:00 PM TALENT DEVELOPMENT COORDINATOR 20 mL/hr sodium chloride 0.9 % infusion Dose/Rate 1,000 mL, Intravenous, at 75 mL/hr, Verify CONTINUOUS, Starting Damaris 07/06/18 at 0815, Until Damaris 07/06/18 at 1621, Admission/Obs/Extended Recovery 75 mL/hr Given - New Bag 07/06/2018 9:00 AM TALENT DEVELOPMENT COORDINATOR temazepam (RESTORIL) capsule 15 mg 15 mg, Oral, AT BEDTIME PRN, Starting Damaris 07/06/18 at 0807, Until Damaris 07/06/18 at 1621, Insomnia, Admission/Obs/Extended Recovery in this encounter
--- OUTSIDE RECORDS SUMMARY | 2018-09-22 08:56 | XMS REPORT | Encounter Summary ---
Author Author [facility] Organization [facility] Address Unknown Phone Unavailable Care Team Providers Care Animal Health Technician Name Role Phone Kena Stoner MD PCP Tata Cohen MD Unavailable Christal Anderson RN Unavailable Unavailable Karina Tobias RN Unavailable Unavailable Marisol Toth RN Unavailable Unavailable Bethany Farris MD Unavailable Alexia Goldsmith Unavailable Unavailable Keshia Reveles RN Unavailable Unavailable Reason for Visit * Reason Comments Dizziness Encounter Details Care Team Description Date Type Department Aubrie Martínez RN Dizziness 08/21/2018 [facility]phone [facility] [address] [place] [phone] [place] [phone] Social History Date Tobacco Use Types Packs/Day [...] travel history available. as of this encounter Miscellaneous Notes * Telephone Encounter - Aubrie Martínez RN - 08/22/2018 4:14 PM PEN RIDER Reviewed with Dr. Chaudhari. Will discontinue metoprolol for now. Pt is due to see EP in September. Spoke with patient regarding recommendations to stop metoprolol. Pt states she actually hasn't taken the medication for 2 days and she is still feeling the same. Recommended she contact her PCP for her symptoms. She states she has been on a diet and is worried about her electrolytes. Encouraged her to contact her PCP and she will resume her metoprolol for now. RIDER * Telephone Encounter - Aubrie Martínez RN - 08/21/2018 9:43 AM PEN RIDER Pt called today with concerns of dizziness and nausea. She states she has noticed this since starting metoprolol a few weeks ago. The dizziness is so bad , she almost called an ambulance. Her blood pressure has run 150-160/40-50 when she checks it. One time when the dizziness was quite significant, her bp was 111 /40. She states it is never that low. She is also having nausea as well. She does think that she was on metoprolol once quite some time ago and was taken off of it at that time, but doesn't exactly remember why. RIDER in this encounter Plan of Treatment Not on fileas of this encounter Visit Diagnoses Not on filein this encounter
--- OUTSIDE RECORDS SUMMARY | 2018-09-22 08:56 | XMS REPORT | Encounter Summary ---
Author Author [facility] Organization [facility] Address Unknown Phone Unavailable Care Team Providers Care Hat Band Attacher Name Role Phone Kena Stoner MD PCP Tata Cohen MD Unavailable Christal Anderson RN Unavailable Unavailable Karina Tobias RN Unavailable Unavailable Marisol Toth RN Unavailable Unavailable Bethany Farris MD Unavailable Alexia Goldsmith Unavailable Unavailable Keshia Reveles RN Unavailable Unavailable Reason for Referral * Consult, Test & Treat (Routine) Referred By Contact Referred To Contact Status Reason Specialty Diagnoses / Procedures Lolyd Chaudhari MD [address] [address] [place] [address] [address] [place] [address] No Auth Needed Cardiology Procedures REQUEST FOR CARDIOLOGY APPOINTMENT Reason for Visit * Reason Comments Results Encounter Details Care Team Description Date Type Department Ben Patel RN Results 08/01/2018 Telephone [facility] [address] [place] [phone] [place] [address] Social History Date Tobacco Use Types Packs/Day [...] as of this encounter Miscellaneous Notes * Addendum Note - Ben Patel RN - 08/01/2018 2:45 PM QUITLINE COUNSELOR Addended by: BEN PATEL on: 08/01/2018 02:45 PM Modules accepted: Orders LINE COUNSELOR * Telephone Encounter - Ben Patel RN - 08/01/2018 2:39 PM QUITLINE COUNSELOR ----- Message from Lloyd Chaudhari MD sent at 07/28/2018 3:50 PM QUITLINE COUNSELOR ----- Please let her know that she was found to have PSVT on her monitor. Can you please get her set up to see one of the EP docs? Let's also get her started on Toprol xl 25mg at nighttime. thanks LINE COUNSELOR in this encounter Plan of Treatment Not on fileas of this encounter Visit Diagnoses Not on filein this encounter
--- OUTSIDE RECORDS SUMMARY | 2018-09-22 08:56 | XMS REPORT | Encounter Summary ---
Author Author [facility] Organization [facility] Address Unknown Phone Unavailable Care Team Providers Care Second Helper Name Role Phone Kena Stoner MD PCP Tata Cohen MD Unavailable Christal Anderson RN Unavailable Unavailable Karina Tobias RN Unavailable Unavailable Marisol Toth RN Unavailable Unavailable Bethany Farris MD Unavailable Alexia Goldsmith Unavailable Unavailable Keshia Reveles RN Unavailable Unavailable Reason for Visit * Reason Comments Event Monitor Results Encounter Details Care Team Description Date Type Department Aubrie Martínez RN Event Monitor Results 07/28/2018 [facility] [address] [place] [phone] [place] [address] Social History Date Tobacco Use Types Packs/Day [...] Telephone Encounter - Aubrie Martínez RN - 07/28/2018 5:09 PM HR BUSINESS PARTNER CONSULTANT ----- Message from Lloyd Chaudhari MD sent at 07/28/2018 3:50 PM HR BUSINESS PARTNER CONSULTANT ----- Please let her know that she was found to have PSVT on her monitor. Can you please get her set up to see one of the EP docs? Let's also get her started on Toprol xl 25mg at nighttime. thanks BUSINESS PARTNER CONSULTANT in this encounter Plan of Treatment Not on fileas of this encounter Visit Diagnoses Not on filein this encounter
--- OUTSIDE RECORDS SUMMARY | 2018-09-22 08:57 | XMS REPORT | Encounter Summary ---
Author Author [facility] Organization [facility] Address Unknown Phone Unavailable Care Team Providers Care Order Builder Loader Name Role Phone Kena Stoner MD PCP [...] HTN (HCC) Chest pain, unspecified type Procedures HI R & L HRT CATH WINJX HRT ART& L VENTR IMG HI PRQ TRLUML CORONARY STENT W/ANGIO ONE ART/BRNCH ANGIOGRAPHY CORONARY ARTERY WITH RIGHT AND LEFT HEART CATHETERIZATION POSSIBLE PERCUTANEOUS CORONARY STENT PLACEMENT WITH ANGIOPLASTY Encounter Details Care Team Description Date Type Department Bayron Chaudhari MD [address] [facility] [place] [address] Angina of effort (HCC) 07/06/2018 Hospital Cardiac Catheterization Encounter Laboratory [address] [place] [address] Social History Date Tobacco Use [...] Taken Vital Sign Reading 07/06/2018 12:45 PM SPINNING OPERATOR Blood Pressure 177/59 07/06/2018 12:45 PM SPINNING OPERATOR Pulse 54 07/06/2018 11:41 AM SPINNING OPERATOR Temperature 36.8 C (98.2 F) - Respiratory Rate - 07/06/2018 12:45 PM SPINNING OPERATOR Oxygen Saturation 96% - Inhaled Oxygen - Concentration 07/06/2018 8:16 AM SPINNING OPERATOR Weight 117.4 kg (258 lb 13.1 oz) 07/06/2018 8:16 AM SPINNING OPERATOR Height 162.6 cm (5' 4") 07/06/2018 8:16 AM SPINNING OPERATOR Body Mass Index 44.43 in this encounter Discharge Summaries * Zuleima Gonzales APRN - 07/06/2018 2:20 PM SPINNING OPERATOR Physician Discharge Summary Name: India Blackwell Date Of : 1955 Age: 63 years Admit date: 07/06/2018 Discharge date: 07/06/2018 Attending Physician: Bayron Chaudhari MD Service: Med-Cardiovasc Physician Summary completed by: Zuleima Gonzales APRN Reason for hospitalization: Chest Pain, Dyspnea on Exertion Significant PMH: Past Medical History: Diagnosis Date Arthritis Back pain CAD (coronary artery disease) Chest pain Essential hypertension HTN (hypertension) Hyperlipemia Hyperlipidemia 05/15/2013 Hypertension 05/15/2013 SBO (small bowel obstruction) (HCC) 08/2014 Allergies: Fish containing products Admission Lab/Radiology studies notable for: Hematology: Lab Results Component Value Date HGB 12.4 07/05/2018 HCT 37.4 07/05/2018 PLTCT 258 07/05/2018 WBC 6.9 07/05/2018 NEUT 57.6 05/20/2015 ANC 3110 05/20/2015 ALC 1868 05/20/2015 MEMO 5.9 05/20/2015 AMC 319 05/20/2015 ABC 22 05/20/2015 MCV 82.7 07/05/2018 MCHC 33.2 07/05/2018 MPV 8.4 07/05/2018 RDW 13.8 07/05/2018 , Coagulation: No results found for: PT, PTT, INR, General Chemistry: Lab Results Component Value Date NA 141 07/05/2018 K 4.3 07/05/2018 CL 105 07/05/2018 GAP 7 07/05/2018 BUN 25 07/05/2018 CR 0.94 07/05/2018 GLU 109 07/05/2018 GLU 99 05/20/2015 CA 9.5 07/05/2018 ALBUMIN 4.3 05/20/2015 TOTBILI 0.6 05/20/2015 , Enzymes: Lab Results Component Value Date AST 36 05/20/2015 ALT 39 05/20/2015 ALKPHOS 174 05/20/2015 , HgbA1C: Lab Results Component Value Date HGBA1C 5.6 05/20/2015 and Lipid Profile: Lab Results Component Value Date CHOL 147 06/21/2013 TRIG 99 06/21/2013 HDL 44 06/21/2013 LDL 83 06/21/2013 VLDL 16 05/26/2013 Brief Hospital Course: 63-year-old female with a medical history of hypertension , hyperlipidemia, coronary artery disease with prior PCI to the distal right coronary artery, obesity, elevated pulmonary pressures likely due to diastolic dysfunction, nocturnal hypoxia treated with oxygen and recurrent episodes of chest discomfort/pressure and dyspnea on exertion. She has seen Dr. Grande for presumed pulmonary hypertension after an outside echo demonstrated a PA systolic pressure of 50mmHg. Repeat study at suggested pressures in the 30' s. Dr. Grande recommended a right and left heart catheterization. She presented 07/06/18 to undergo procedure with Dr. Chaudhari. She tolerated the procedure well. She is to continue medical therapy including aspirin and high- intensity statin as tolerated. She should follow up with her PCP for further workup of her symptoms. She is stable for discharge. Upon discharge the patient and family were given post procedure instructions/restrictions as well as written instructions (see Discharge instructions). Condition at Discharge: Stable Access site(s) C/D/I without bleeding, hematoma or bruit. Extremity pink, warm and dry. Pulse present in affected extremity. Patient ambulatory in the halls, without difficulty, prior to discharge. Labs as above. VSS: BP 158/75 (BP Source: Arm, Left Upper) | Pulse 65 | Temp 36.4 C (97.5 F) | Ht 1.626 m (5' 4") | Wt 117.4 kg (258 lb 13.1 oz) | SpO2 98% | BMI 44.43 kg/m Discharge Diagnoses: Hospital Problems Active Problems CAD (coronary artery disease) Hypertension Hyperlipidemia Angina of effort (HCC) Pulmonary hypertension due to left ventricular diastolic dysfunction (HCC) Shortness of breath Morbid obesity with BMI of 45.0-49.9, adult ([facility]) Surgical Procedures: None Significant Diagnostic Studies and Procedures: 07/10/18 LHC/RHC by Dr. Chaudhari Hemodynamics findings: 1. Blood pressure 174/67 with [...] PA sat 78%. CORONARY ARTERIOGRAPHY: 1. Left main: originates from the left coronary cusp, bifurcates into LAD and left circumflex. There was 20% distal left main disease. 2. LAD: It is a type 3 LAD that wraps around the apex, gives rise to multiple septal and diagonal branches with no significant disease. 3. Left circumflex artery gives rise to 3 OM branches. OM1 has a 20% disease. Otherwise, no significant disease. 4. Right coronary artery, there was 20% distal RCA disease. There was 30% ostial PDA disease, unchanged from before. No intervention was done. Conclusion: 1. Mild coronary artery disease involving the distal left main 20%, OM1 at 20%, distal RCA 20% and ostial PDA 30%. 2. Normal pulmonary artery pressure with a mean pressure of 90 mmHg and normal cardiac index of 3.6 L/minute by thermo. Consults: None Patient Disposition: Home Patient instructions/medications: Procedure Specific Activity *May return to work/school in 2 days. *May shower after discharge. *NO lifting, pushing or pulling more than 5 pounds for one week to affected hand. You may use your wrist splint for a reminder! *NO lifting/pushing/pulling > 15lbs in general for one week *NO strenuous activity for 1 week. *NO driving for 2 days. *NO baths or swimming for 1 week. *NO sexual activity for 1 week. Cardiac Diet Limiting unhealthy fats and cholesterol is the most important step you can take in reducing your risk for cardiovascular disease. Unhealthy fats include saturated and trans fats. Monitor your sodium and cholesterol intake. Restrict your sodium to 2g (grams) or 2000mg (milligrams) daily, and your cholesterol to 200mg daily. If you have questions regarding your diet at home, you may contact a dietitian at . Incision Care *Call if there is an increase in pain, swelling, or redness. *DO NOT soak incision in water. *NO tub baths, hot tubs, or swimming. *You may shower after discharge. Cardiac Rehab Your physician has referred you to outpatient cardiac rehab. Contact [facility] Cardiac Rehab Department at [phone] to schedule an appointment. [facility] [place] is a gathering place for individuals, families, and friends living with serious or chronic physical illness. They offer education and support programs that help you live your life to the fullest. Unless otherwise noted, programs are offered at NO CHARGE. However, REGISTRATION IS REQUIRED 48 hours in advance. To arrange for a tour, register for a class, or ask a questions please call . You can also visit [email or web address] for more information. Questions About Your Stay For questions or concerns regarding your hospital stay: - DURING BUSINESS HOURS (8:00 AM - 4:30 PM): Call [phone] and asked to be transferred to your discharge attending physician. - AFTER BUSINESS HOURS (4:30 PM - 8:00 AM, on weekends, or holidays): Call [phone] and ask the tape control skin or spar mill operator to page the on-call doctor for the discharge attending physician. Discharging attending physician: BAYRON CHAUDHARI [[id number]] Return Appointment Please follow up with your PCP for further work up of symptoms. Report These Signs and Symptoms Please contact your doctor if you have any of the following symptoms: Chest pain, shortness of breath, lightheadedness, dizziness, near fainting, palpitations, groin, back or wrist pain, or bleeding. Current Discharge Medication List CONTINUE these medications which have NOT CHANGED Details amLODIPine (NORVASC) 5 mg tablet Take 1 Tab by mouth daily. Qty: 90 Tab, Refills: 3 PRESCRIPTION TYPE: Normal Associated Diagnoses: Hypertension aspirin EC 81 mg tablet Take 81 mg by mouth daily. PRESCRIPTION TYPE: Historical Med atorvastatin (LIPITOR) 40 mg tablet Take 1 Tab by mouth daily. Qty: 90 Tab, Refills: 3 PRESCRIPTION TYPE: Normal diphenhydrAMINE (BENADRYL) 25 mg capsule Take 50 mg by mouth every 6 hours as needed. PRESCRIPTION TYPE: Historical Med docusate (COLACE) 100 mg capsule Take 100 mg by mouth twice daily. PRESCRIPTION TYPE: Historical Med ferrous sulfate (IRON PO) Take by mouth. PRESCRIPTION TYPE: Historical Med furosemide (LASIX) 40 mg tablet Take 40 mg by mouth daily. 2 tabs q am PRESCRIPTION TYPE: Historical Med isosorbide mononitrate SR (IMDUR) 30 mg tablet Take 0.5 Tabs by mouth daily. Qty: 90 Tab, Refills: 3 PRESCRIPTION TYPE: Normal Associated Diagnoses: CAD (coronary artery disease) losartan(+) (COZAAR) 100 mg tablet Take 100 mg by mouth daily. PRESCRIPTION TYPE: Historical Med meloxicam (MOBIC) 15 mg tablet Take 15 mg by mouth daily. PRESCRIPTION TYPE: Historical Med polyethylene glycol 3350 (MIRALAX) 17 g packet Take 17 g by mouth daily. PRESCRIPTION TYPE: Historical Med traZODone (DESYREL) 50 mg tablet Take 75 mg by mouth at bedtime as needed. PRESCRIPTION TYPE: Historical Med Scheduled appointments: Aug 30, 2018 11:00 AM SPINNING OPERATOR Return Patient with Bayron Chaudhari MD Cardiovascular Medicine ([facility]) [address] [address] Pending items needing follow up: as above Signed: Zuleima Gonzales APRN 07/06/2018 cc: Primary Care Physician: Kena Stoner Verified Referring physicians: Baldo Grande, * Additional provider(s): NING OPERATOR in this encounter Discharge Instructions * Patient Instructions* Maria Esther Burden RN - 07/06/2018 12:23 PM SPINNING OPERATOR Manual Sheath Removal From A Large Vein Or Artery-TUKH When you go home: You may shower 24 hours after your procedure. Do not sit in water for one week. (No bath tub, swimming pool/hot tub, etc.) Keep the area clean and dry for one week (except for daily showers). Be sure your hands are clean when touching near the site. If a band-aid or dressing is still in place remove it before showering. Wash and dry thoroughly but gently. If needed, for your comfort, you may place a clean band-aid over the puncture site after you are clean and dry. It is best to leave it open to air as soon as it is comfortable to do so. Do not use ointments, creams, or powders on puncture site. Inspect site daily. Activity: (Unless otherwise instructed or unable to perform) Avoid any exertion for one week. Exertion is lifting over 15 lbs or pushing, pulling or straining. Avoid excessive bending, stooping, or stair climbing for 2 days. It is ok to go up stairs or bend over but take it slowly and keep it to a minimum. You may be up and about while relaxing at home as you recover. You may resume sexual activity in one week. You may begin driving 2 days after your procedure if you are otherwise able to drive. ---It is common to have mild soreness and/or a small, soft bruise around the site that can take up to two weeks to go away. A small (dime to quarter sized) lump is also normal. A small amount of blood (not more than a teaspoon) from the site is also common. WHEN TO CALL THE DOCTOR: Complications are rare but can happen. If you have significant bleeding (more than a teaspoon) or a lump underneath the skin (bigger than a golf ball) at the site lie down, apply firm pressure at the site and call 911. Bleeding from a large vessel needs professional help. If you have signs of infection at the site such as: redness, warm to touch, drainage, increasing soreness, a fever (100 degrees or more) and/or chills. Soreness that continues more than a week or unusual pain at the puncture site. Numbness, tingling, weakness in the affected leg. If your leg becomes cold and pale. If you have changes of vision, slurred speech or one-sided weakness. Who do I contact if I need to speak with someone? During Business Hours: [facility] Cardiology Office at the [facility]: [phone] (Tuesday-Tuesday) [place]: [phone] (Tuesday-Tuesday) [place]: [phone] (Tuesday-Tuesday) [place]: [phone] (Tuesday and ) [place]: [phone] (Tuesday-Tuesday) [place]: [phone] (Tuesday-Tuesday) [place]: [phone] (Tuesday-) [address]: [phone] (Tuesday, Tuesday and Tuesday) [place]: [phone] (Tuesday, Tuesday and Tuesday) [place] ([place]): [phone] (Tuesday, Tuesday and Tuesday) Nights and Weekends [facility] Cardiology Office at the [facility]: [phone] This education is meant to serve as a resource to you and your family. It is not meant to be all inclusive. The members of the [facility] at [facility], , will be glad to answer any questions you may have about this booklet or your procedure. NING OPERATOR in this encounter Medications at Time of [...] (coronary artery disease) as of this encounter Progress Notes * Maria Esther Burden RN - 07/06/2018 2:20 PM SPINNING OPERATOR Patient discharged to home with all belongings. Discharge instructions, med reconciliation and home wound care instructions given and explained to patient and family both verbally and written. Accompanied by . No complaints of pain or discomfort. Right groin site and right IJ site remains clean, dry, and intact with no evidence of a hematoma/bleeding after ambulation. Patient escorted to lobby via Family. Patient to follow up with [facility]iology ([facility]) or on-call physician with any additional questions or concerns. All contact numbers provided. Patient and family acceptant of DC instuctions and report understanding to all information. NING OPERATOR * Maria Esther Burden RN - 07/06/2018 8:00 AM SPINNING OPERATOR Patient arrived on unit via ambulation accompanied by family. Patient transferred to the bed without assistance. Frailty score equals 3 Assessment completed, refer to flowsheet for details. Orders released, reviewed, and implemented as appropriate. Oriented to surroundings, call light within reach. Plan of care reviewed. Will continue to monitor and assess. NING OPERATOR in this encounter H&P Notes * Zuleima Gonzales APRN - 07/06/2018 10:22 AM SPINNING OPERATOR Patient presents for procedure. Please see History and Physical copied below from date of service 07/05/[address] Chaudhari. Zuleima Gonzales APRN-C Date of Service: 07/05/2018 India Blackwell is a 63 y.o. female. HPI I had the pleasure of seeing Ms. Blackwell in cardiovascular evaluation today. She is a very pleasant 63-year-old female with a medical history of hypertension , hyperlipidemia, coronary artery disease with prior PCI to the distal right coronary artery, obesity, elevated pulmonary pressures likely due to diastolic dysfunction, nocturnal hypoxia treated with oxygen and recurrent episodes of chest discomfort/pressure and dyspnea on exertion. She saw Dr. Grande in the department of pulmonary medicine for presumed pulmonary hypertension. An outside echo had demonstrated PA systolic pressure of 50 mmHg. Repeat study in our lab suggested pressures in the 30s. She tells me that she has been having pretty significant shortness of breath with very minimal levels of activity. The symptoms have been progressively getting worse over the last 9-12 months. She is additionally had episodes of palpitations which she describes as having Clydesdale's in her chest. They last for only a few seconds and then are gone. These 2 symptoms sets are different. They do not seem to be associated with each other. After seeing Dr. Grande he recommended right and left heart catheterization with coronary angiography for further evaluation. We have that scheduled for tomorrow. I think it might also be worthwhile to have her wear a Holter monitor for further investigation of her palpitations. She tells me that she has worn a monitor in the past and was told that things were okay but she does not know the specifics. She does have a portable mini EKG machine that she carries and uses which is documented ventricular premature beats but no other arrhythmia. She has not had syncope. She denies near syncopal episodes. She has no other complaints today. Vitals: 07/05/18 0941 BP: 160/70 Pulse: 66 SpO2: 95% Weight: 127 kg (280 lb) Height: 1.626 m (5' 4") Body mass index is 48.06 kg/m. Past Medical History Patient Active Problem List Diagnosis Date Noted Pulmonary hypertension due to left ventricular diastolic dysfunction (HCC) 06/23/2018 Shortness of breath 06/23/2018 Morbid obesity with BMI of 45.0-49.9, adult (HCC) 06/23/2018 Angina of effort (HCC) 07/06/2013 CAD (coronary artery disease) 05/15/2013 10/31/12 [address] [place], [place] - Heart Cath: EF 65%. single [...] 05/15/2013 Review of Systems Constitution: Positive for weakness, malaise/fatigue and weight gain. HENT: Negative. Eyes: Positive for blurred vision and photophobia. Cardiovascular: Positive for chest pain, dyspnea on exertion, irregular heartbeat, leg swelling, near-syncope, orthopnea, palpitations and paroxysmal nocturnal dyspnea. Respiratory: Positive for shortness of breath and sleep disturbances due to breathing. Endocrine: Negative. Hematologic/Lymphatic: Negative. Skin: Negative. Musculoskeletal: Positive for arthritis. Gastrointestinal: Positive for excessive appetite and flatus. Genitourinary: Positive for bladder incontinence and decreased libido. Neurological: Positive for difficulty with concentration, dizziness, light- headedness and loss of balance. Psychiatric/Behavioral: Positive for depression. The patient has insomnia. Allergic/Immunologic: Negative. All other systems reviewed and are negative. Physical Exam General Appearance: resting comfortably, no acute distress Skin: warm, moist, no ulcers or xanthomas Digits and Nails: no clubbing Eyes: conjunctivae and lids normal, pupils are equal and round Lips & Oral Mucosa: no pallor or cyanosis Ear, Nose, Throat: No deformities, posterior oral pharynx clear Neck Veins: neck veins are flat, neck veins are not distended Chest Inspection: chest is normal in appearance Respiratory Effort: breathing is unlabored, no respiratory distress Auscultation/Percussion: lungs clear to auscultation, no rales, rhonchi, or wheezing PMI: PMI not enlarged or displaced Cardiac Rhythm: regular rhythm and normal rate Cardiac Auscultation: Normal S1 & S2, no S3 or S4, no rub Murmurs: no cardiac murmurs Carotid Arteries: normal carotid upstroke bilaterally, no bruits Pedal Pulses: normal symmetric pedal pulses Lower Extremity Edema: 1+ bilateral lower extremity edema Gait & Station: normal balance and gait Muscle Strength: normal strength and tone Neurologic Exam: neurological assessment grossly intact Orientation: oriented to time, place and person Affect & Mood: appropriate and sustained affect Other: moves all extremities Cardiovascular Studies ECG: normal sinus rhythm and left anterior hemiblock or BBBR. Problems Addressed Today Encounter Diagnoses Name Primary? Pulmonary hypertension due to left ventricular diastolic dysfunction (HCC) Yes Coronary artery disease involving [place] heart with angina pectoris, unspecified vessel or lesion type (HCC) Essential hypertension Assessment and Plan CAD (coronary artery disease) We will plan to perform angiography to check for obstructive CAD as the etiology of her symptoms. Hypertension Not currently well controlled. We will re-evaluate when she is admitted, but I anticipate adding HCTZ to her regimen. Goal BP <130/80. Pulmonary hypertension due to left ventricular diastolic dysfunction (HCC) Plan for L/RHC with coronary angiography tomorrow for further evaluation. Current Medications (including today's revisions) amLODIPine (NORVASC) 5 mg tablet Take 1 Tab by mouth daily. aspirin EC 81 mg tablet Take 81 mg by mouth daily. atorvastatin (LIPITOR) 40 mg tablet Take 1 Tab by mouth daily. diphenhydrAMINE (BENADRYL) 25 mg capsule Take 50 mg by mouth every 6 hours as needed. docusate (COLACE) 100 mg capsule Take 100 mg by mouth twice daily. ferrous sulfate (IRON PO) Take by mouth. furosemide (LASIX) 40 mg tablet Take 40 mg by mouth daily. 2 tabs q am isosorbide mononitrate SR (IMDUR) 30 mg tablet Take 0.5 Tabs by mouth daily. losartan(+) (COZAAR) 100 mg tablet Take 100 mg by mouth daily. meloxicam (MOBIC) 15 mg tablet Take 15 mg by mouth daily. metoprolol XL (TOPROL XL) 25 mg tablet Take 25 mg by mouth daily. polyethylene glycol 3350 (MIRALAX) 17 g packet Take 17 g by mouth daily. traZODone (DESYREL) 50 mg tablet Take 75 mg by mouth at bedtime as needed. NING OPERATOR in this encounter Procedure Notes * Bayron Cahudhari MD - 07/06/2018 2:20 PM SPINNING OPERATOR Associated Order(s): CARDIAC CATH REPORT [facility] at [facility] CARDIAC CATHETERIZATION REPORT Page 2 [place] C[place] : 1955 [facility]#: [id number] MR #/Billing ID #: [id number] / [id number] DATE: 07/06/2018 SUPERVISOR COUNSELING AND GUIDANCE: Bayron Chaudhari MD DICTATING PROVIDER: Prieto Lyons MD REFERRING PHYSICIAN: CATHETERIZATION REPORT: Interventional Cardiology, Dr. Bayron Chaudhari. Interventional bridge opener, Prieto Lyons MD. PROCEDURE: 1. Left heart [...] therefore she was brought in to the laboratory coordinator today for coronary evaluation and right heart [...] cardiac tamponade. was also notified that Interventional bridge opener will be assisting during the course of this procedure. informed consent was placed in the patient's chart. DESCRIPTION AND FINDINGS OF OPERATIVE PROCEDURE: After consent was obtained, patient was brought in the laboratory coordinator in a fasting state where she was prepped and draped in usual sterile fashion. out was obtained to verify patient, as well as site and type of the procedure. mL of 1% lidocaine was administered to the right neck and then with direct ultrasound guidance, we accessed the right internal jugular vein and an 8-Chilean Shubert sheath was inserted. we advanced our 7-Chilean Lincoln-Ivy catheter. got sequential pressure in the RA, [...] common femoral artery with micropuncture needle and 5-Chilean pinnacle sheath was inserted. did the left heart catheterization using a TIG 4.0 5-Chilean catheter. see details of findings below. that, [...] the assessment and recommendations as outlined above. Bayron Chaudhari MD BLOOD / MEDQ Job #: [id number] p cc: NING OPERATOR in this encounter Plan of Treatment Not on fileas of this encounter Procedures Comments Procedure Name Priority Date/Time Associated Diagnosis HOLTER WEARABLE ECG MARCO 07/13/2018 MONITOR CONNECT + SCAN 8:59 AM SPINNING OPERATOR CARDIAC CATH REPORT 07/06/2018 2:20 PM SPINNING OPERATOR O2HGB SAT-VENOUS POC 07/06/2018 10:43 AM SPINNING OPERATOR O2HGB SAT-VENOUS POC 07/06/2018 10:41 AM SPINNING OPERATOR CARDIAC CATH REPORT Routine 07/06/2018 Pulmonary HTN (HCC) 8:01 AM SPINNING OPERATOR Chest pain, unspecified type TELEMETRY STRIPS-SCAN 07/06/2018 12:00 AM SPINNING OPERATOR PROCEDURE RECORD-SCAN 07/06/2018 12:00 AM SPINNING OPERATOR CARDIAC CATH REPORT Routine 06/28/2018 Pulmonary HTN (HCC) 12:32 PM SPINNING OPERATOR Chest pain, unspecified type in this encounter Results * HOLTER WEARABLE ECG MONITOR CONNECT + SCAN (07/13/2018 8:59 AM SPINNING OPERATOR) Narrative Performed At OTHER OUTSIDE LAB Indication: Chest Pain Hookup date: 07/06/2018. Scan date: 07/13/2018. Start time: 12:40. The predominant rhythm shows sinus rhythm. Total beats recorded: [id number] Analysis time: 47 hr 49 min Mean [...] with intermittent episodes of sinus arrhythmia. 2. HI and QRS are within normal limits. 3. (2213) single SVEs, (458) paired, (107) runs of SVT. 4. (22) single VEs, trigeminy noted. 5. Patient diary was submitted symptoms noted, patient triggered event noted. Performing Organization Address City/State/Zipcode Phone Number OTHER OUTSIDE LAB * CARDIAC CATH REPORT (07/06/2018 2:20 PM SPINNING OPERATOR) Procedure Note Bayron Chaudhari MD - 07/06/2018 2:20 PM SPINNING OPERATOR [facility] CARDIAC CATHETERIZATION REPORT Page 2 INDIA Cuevas : 1955 KU#: [id number] TANIA MR #/Billing ID #: [id number] / [id number] DATE: 07/06/2018 SUPERVISOR COUNSELING AND GUIDANCE: Bayron Chaudhari MD DICTATING PROVIDER: Prieto Lyons MD REFERRING PHYSICIAN: CATHETERIZATION REPORT: Interventional Cardiology, Dr. Bayron Chaudhari. Interventional bridge opener, Prieto Lyons MD. PROCEDURE: 1. Left heart [...] therefore she was brought in to the laboratory coordinator today for coronary evaluation and right heart [...] cardiac tamponade. was also notified that Interventional bridge opener will be assisting during the course of this procedure. informed consent was placed in the patient's chart. DESCRIPTION AND FINDINGS OF OPERATIVE PROCEDURE: After consent was obtained, patient was brought in the laboratory coordinator in a fasting state where she was prepped and draped in usual sterile fashion. out was obtained to verify patient, as well as site and type of the procedure. mL of 1% lidocaine was administered to the right neck and then with direct ultrasound guidance, we accessed the right internal jugular vein and an 8-Chilean Shubert sheath was inserted. we advanced our 7-Chilean Lincoln-Ivy catheter. got sequential pressure in the RA, [...] common femoral artery with micropuncture needle and 5-Chilean pinnacle sheath was inserted. did the left heart catheterization using a TIG 4.0 5-Chilean catheter. see details of findings below. that, [...] the assessment and recommendations as outlined above. Bayron Chaudhari MD BLOOD / MEDQ Job #: /[id number] p cc: Performing Organization Address [facility] Phone Number OTHER OUTSIDE LAB * O2HGB SAT-VENOUS POC (07/06/2018 10:43 AM SPINNING OPERATOR) O2HGB SAT-Venous POC 77.8 (H) 55 - 71 % [facility] Performing Organization Address [place] [place] LAB [address] [place] [address] * O2HGB SAT-VENOUS POC (07/06/2018 10:41 AM SPINNING OPERATOR) O2HGB SAT-Venous POC 80.6 (H) 55 - 71 % MAIN LAB Performing Organization Address [facility] Number MA[facility] LAB [address] [place] [address] * TELEMETRY STRIPS-SCAN (07/06/2018 12:00 AM SPINNING OPERATOR) Narrative Performed At Ordered by an unspecified provider. * PROCEDURE RECORD-SCAN (07/06/2018 12:00 AM SPINNING OPERATOR) Narrative Performed At Ordered by an unspecified provider. in this encounter Visit Diagnoses Diagnosis Shortness of breath - Primary Pulmonary HTN (HCC) Other chronic pulmonary heart diseases Chest pain, unspecified type Morbid obesity with BMI of 45.0-49.9, adult (HCC) Morbid obesity in this encounter Administered Medications Action Date Dose Rate Site Medication Order MAR Action acetaminophen (TYLENOL) tablet 650 mg 650 mg, Oral, EVERY 4 HOURS PRN, Starting Damaris 07/06/18 at 0807, Until Damaris 07/06/18 at 1621, Pain non-opioid: may be used alone or in combination with opioid analgesia, TOTAL ACETAMINOPHEN DOSE NOT TO EXCEED 4GM DAILY, Admission/Obs/Extended Recovery aluminum/magnesium hydroxide (MAALOX) oral suspension 30 mL 30 mL, Oral, EVERY 4 HOURS PRN, Starting Damaris 07/06/18 at 0807, Until Damaris 07/06/18 at 1621, Indigestion/Heartburn, Admission/Obs/Extended Recovery diphenhydrAMINE (BENADRYL) [...] mL 0.1-2 mL, Injection, NEEDED, Starting Damaris 07/06/18 at 0807, Until Damaris 07/06/18 at 1621, Other..., for peripheral IV insertion, Pre-Op milk of magnesia (CONC) oral suspension 10 mL 10 mL, Oral, EVERY 6 HOURS PRN, Starting Damaris 07/06/18 at 0807, Until Damaris 07/06/18 at 1621, Constipation PO, 10 mL CONC=30 mL MOM., Admission/Obs/Extended Recovery ondansetron (ZOFRAN) injection 4 mg 4 mg, Intravenous, EVERY 6 HOURS PRN, Starting Damaris 07/06/18 at 1126, Until Damaris 07/06/18 at 1621, Nausea/Vomiting Injectable sodium chloride 0.9 % infusion 250 mL, 250 mL, Intravenous, at 75 mL/hr, NEEDED, Starting Damaris 07/06/18 at 0807, Until Damaris 07/06/18 at 1621, Other..., eGFR < 60, For [...] of volume overload., Pre-Op 07/06/2018 12:00 PM SPINNING OPERATOR 20 mL/hr sodium chloride 0.9 % infusion Dose/Rate 1,000 mL, Intravenous, at 75 mL/hr, Verify CONTINUOUS, Starting Damaris 07/06/18 at 0815, Until Damaris 07/06/18 at 1621, Admission/Obs/Extended Recovery 75 mL/hr Given - New Bag 07/06/2018 9:00 AM SPINNING OPERATOR temazepam (RESTORIL) capsule 15 mg 15 mg, Oral, AT BEDTIME PRN, Starting Damaris 07/06/18 at 0807, Until Damaris 07/06/18 at 1621, Insomnia, Admission/Obs/Extended Recovery in this encounter
--- OUTSIDE RECORDS SUMMARY | 2018-09-22 08:57 | XMS REPORT | Encounter Summary ---
Author Author [facility] Organization [facility] Address Unknown Phone Unavailable Care Team Providers Care Food Specialist Name Role Phone Kena Stoner MD PCP Tata Cohen MD Unavailable Christal Anderson RN Unavailable Unavailable Karina Tobias RN Unavailable Unavailable Marisol Toth RN Unavailable Unavailable Bethany Farris MD Unavailable Alexia Goldsmith Unavailable Unavailable Keshia Reveles RN Unavailable Unavailable Encounter Details Care Team Description Date Type Department Aubrie Martínez, DORA Pulmonary HTN (HCC) (Primary Dx); Chest pain, unspecified type 06/28/2018 Prep for [facility] Cardiovascular Medicine [address] [address] [place] [address] Social History Date Tobacco Use Types Packs/Day [...] on fileas of this encounter Visit Diagnoses Diagnosis Pulmonary HTN (HCC) - Primary Other chronic pulmonary heart diseases Chest pain, unspecified type in this encounter
--- OUTSIDE RECORDS SUMMARY | 2018-09-22 08:57 | XMS REPORT | Encounter Summary ---
Author Author [facility] Organization [facility] Address Unknown Phone Unavailable Care Team Providers Care Trust Manager Assistant Name Role Phone Kena Stoner MD PCP Tata Cohen MD Unavailable Christal Anderson RN Unavailable Unavailable Karina Tobias RN Unavailable Unavailable Marisol Toth RN Unavailable Unavailable Bethany Farris MD Unavailable Alexia Goldsmith Unavailable Unavailable Keshia Reveles RN Unavailable Unavailable Encounter Details Care Team Description Date Type Department Lore Collins, CYBER SECURITY ARCHITECT [address] [facility] [place] [address] [phone] 07/03/2018 Pre-Admit XDD CARDIOLOGY Orders Only Social History Date Tobacco Use Types Packs/Day [...]
--- OUTSIDE RECORDS SUMMARY | 2018-09-22 08:57 | XMS REPORT | Encounter Summary ---
Author Author [facility] Organization [facility] Address Unknown Phone Unavailable Care Team Providers Care Terrapin Fisher Name Role Phone Kena Stoner MD PCP Tata Cohen MD Unavailable Christal Anderson RN Unavailable Unavailable Karina Tobias RN Unavailable Unavailable Marisol Toth RN Unavailable Unavailable Bethany Farris MD Unavailable Alexia Goldsmith Unavailable Unavailable Keshia Reveles RN Unavailable Unavailable Reason for Referral * (Routine) Referred By Contact Referred To Contact Status Reason Specialty Diagnoses / Procedures Lloyd Chaudhari MD [address] [place] [address] New Request Procedures REQUEST FOR CARDIOLOGY APPOINTMENT Reason for Visit * Reason Comments New To Provider H&P for heart cath Encounter Details Care Team Description Date Type Department Lloyd Chaudhari MD [address] [address] New To Provider (H&P for heart cath) 07/05/2018 Office Visit Cardiovascular Medicine [address] [address] Social History Date Tobacco Use Types [...] Vital Signs Time Taken Vital Sign Reading 07/05/2018 9:41 AM SPORTS UMPIRE Blood Pressure 160/70 07/05/2018 9:41 AM SPORTS UMPIRE Pulse 66 - Temperature - - Respiratory Rate - 07/05/2018 9:41 AM SPORTS UMPIRE Oxygen Saturation 95% - Inhaled Oxygen - Concentration 07/05/2018 9:41 AM SPORTS UMPIRE Weight 127 kg (280 lb) 07/05/2018 9:41 AM SPORTS UMPIRE Height 162.6 cm (5' 4") 07/05/2018 9:41 AM SPORTS UMPIRE Body Mass Index 48.06 in this encounter Progress Notes * Lloyd Chaudhari MD - 07/05/2018 9:45 AM SPORTS UMPIRE Date of Service: 07/05/2018 India Blackwell is [...] associated with each other. After seeing Dr. Garnde he recommended right and left heart catheterization [...] hypertension due to left ventricular diastolic dysfunction ([facility]) 06/23/2018 Shortness of breath 06/23/2018 Morbid obesity with BMI of 45.0-49.9, adult ([facility]) 06/23/2018 Angina of effort ([facility]) 07/06/2013 CAD (coronary artery disease) 05/15/2013 10/31/12 [address] [place], [place] - Heart Cath: EF 65%. 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 TS UMPIRE * Assessment & Plan Note - Lloyd Chaudhari MD - 07/05/2018 10:56 AM SPORTS UMPIRE Associated Problem(s): Hypertension Not currently well controlled. We will re-evaluate when she is admitted, but I anticipate adding HCTZ to her regimen. Goal BP <130/80. TS UMPIRE * Assessment & Plan Note - Lloyd Chaudhari MD - 07/05/2018 10:55 AM SPORTS UMPIRE Associated Problem(s): CAD (coronary artery disease) We will plan to perform angiography to check for obstructive CAD as the etiology of her symptoms. TS UMPIRE in this encounter
--- OUTSIDE RECORDS SUMMARY | 2018-09-22 08:57 | XMS REPORT | Encounter Summary ---
Author Author [facility] Organization [facility] Address Unknown Phone Unavailable Care Team Providers Care Outside Plant Cable Engineer Name Role Phone Kena Stoner MD PCP Tata Cohen MD Unavailable Christal Anderson RN Unavailable Unavailable Karina Tobias RN Unavailable Unavailable Marisol Toth RN Unavailable Unavailable Bethany Farris MD Unavailable Alexia Goldsmith Unavailable Unavailable Keshia Reveles RN Unavailable Unavailable Reason for Visit * Reason Comments Precertification Approval for RHC with [facility] through [facility] Encounter Details Care Team Description Date Type Department Earnest Deleon RN Precertification (Approval for RHC with [facility] through [facility]) 06/29/2018 Documentation Cardiovascular Medicine [facility] [place] [address] Social History Date Tobacco Use Types Packs/Day [...] as of this encounter Progress Notes * Earnest Deleon RN - 06/29/2018 10:16 AM DURAN Huffman with [facility], , confirmed benefits and eligibility: Current and active since 05/11/2014, $1000 deductible with required co-insurance of 20% to max OOP $6250, then plan will pay 100% of allowable charges. No pre- certification is required for [facility] with [facility] [id number]. Reference #[id number] CIATE AUTOMATION ENGINEER in this encounter Plan of Treatment Not on fileas of this encounter Visit Diagnoses Not on filein this encounter
--- OUTSIDE RECORDS SUMMARY | 2018-09-22 08:57 | XMS REPORT | Encounter Summary ---
Author Author [facility] Organization [facility] Address Unknown Phone Unavailable Care Team Providers Care Vineyardist Name Role Phone Kena Stoner MD PCP Tata Cohen MD Unavailable Christal Anderson RN Unavailable Unavailable Karina Tobias RN Unavailable Unavailable Marisol Toth RN Unavailable Unavailable Bethany Farris MD Unavailable Alexia Goldsmith Unavailable Unavailable Keshia Reveles RN Unavailable Unavailable Encounter Details Care Team Description Date Type Department Lloyd Chaudhari MD [address] [facility] [place], [place] [id number] 07/05/2018 Hospital Cardiovascular Medicine Encounter [place] [address] [address] [place], [place] [id number] Social History Date Tobacco Use Types Packs/Day [...] travel history available. as of this encounter Medications at Time of Discharge [...] mouth tabletIndications: CAD daily. (coronary artery disease) 07/06/2018 metoprolol XL (TOPROL XL) Take 25 mg by 0 25 mg tablet mouth daily. as of this encounter Plan of Treatment Not on fileas of this encounter Procedures Comments Procedure Name Priority Date/Time Associated Diagnosis CBC Routine 07/05/2018 Pulmonary hypertension 10:42 AM MANIPULATOR OPERATOR due to left ventricular diastolic dysfunction (HCC) BASIC METABOLIC PANEL Routine 07/05/2018 Pulmonary hypertension 10:42 AM MANIPULATOR OPERATOR due to left ventricular diastolic dysfunction (HCC) in this encounter Results * CBC (07/05/2018 10:42 AM MANIPULATOR OPERATOR) White Blood Cells 6.9 4.5 - 11.0 K/UL [facility] RBC 4.52 4.0 - 5.0 M/UL [facility] Hemoglobin 12.4 12.0 - 15.0 GM/DL [facility] Hematocrit 37.4 36 - 45 % [facility] MCV 82.7 80 - 100 FL [facility] MCH 27.4 26 - 34 PG [facility] MCHC 33.2 32.0 - 36.0 G/DL [facility] RDW 13.8 11 - 15 % [facility] Platelet Count 258 150 - 400 K/UL [facility] MPV 8.4 7 - 11 FL [facility] Specimen Blood Performing Organization Address City/State/Zipcode Phone Number [facility] [address] [place] [address] * BASIC METABOLIC PANEL (07/05/2018 10:42 AM MANIPULATOR OPERATOR) Sodium 141 137 - 147 MMOL/L [facility] [...] Address City/State/Zipcode Phone Number MAIN LAB [address] [place] [address] in this encounter Visit Diagnoses Diagnosis Pulmonary hypertension due to left ventricular diastolic dysfunction (HCC) Other chronic pulmonary heart diseases in this encounter
--- OUTSIDE RECORDS SUMMARY | 2018-09-22 08:58 | XMS REPORT | Continuity of Care Document ---
Author Author [facility] Organization [facility] Address Unknown Phone Unavailable Allergies Active Description Code Type Severity Reaction Onset Reported/Identified Relationship to Patient Clinical Status Yes Fish Containing Products [id number] Drug Allergy Unknown N/A 08/15/2014 Medications There is no data. Problems Date Dx Coded Attending Type Code Diagnosis Diagnosed By 04/18/2011 Ot 786.52 PAINFUL RESPIRATION 07/23/2012 Ot 276.8 HYPOPOTASSEMIA 07/23/2012 Ot 278.00 OBESITY, NOS 07/23/2012 Ot 401.9 HYPERTENSION NOS 07/23/2012 Ot 786.50 CHEST PAIN NOS 07/23/2012 Ot V85.43 BODY MASS INDEX 50.0-59.9, ADULT 08/08/2012 Ot 535.40 OTH SPECIFIED GASTRITIS,W/O MENTION OF H 08/08/2012 Ot 553.3 DIAPHRAGMATIC HERNIA 11/01/2012 Ot 278.00 OBESITY, NOS 11/01/2012 Ot 300.4 DYSTHYMIC DISORDER 11/01/2012 Ot 414.01 CORONARY ATHEROSCLEROSIS OF [place] CORON 11/01/2012 Ot 414.4 CORONARY ATHEROSCLEROSIS DUE TO [place] 11/01/2012 Ot 553.3 DIAPHRAGMATIC HERNIA 11/01/2012 Ot 786.50 CHEST PAIN NOS 11/01/2012 Ot V17.49 FAMILY HISTORY OF OTHER CARDIOVASCULAR D 11/01/2012 Ot V58.66 LONG-TERM ( CURRENT) USE OF ASPIRIN 11/01/2012 Ot V58.69 OTH MED,LT, CURRENT USE 11/01/2012 Ot V85.41 BODY MASS INDEX 40.0-44.9, ADULT 01/29/2013 DONITA LYNCH FACC, TJ RICHTER CCDS Ot V45.82 PERCUTANEOUS TRANSLUM CORON ANGIOPLASTY 01/29/2013 DONITA LYNCH FACC, TJ ARGUELLOP CCDS Ot V57.89 REHABILITATION PROC NEC 04/18/2013 HEIDI GODINEZ DO Ot 723.1 CERVICALGIA 07/09/2013 ANNALISA KANG MD Ot V45.82 PERCUTANEOUS TRANSLUM CORON ANGIOPLASTY 07/09/2013 JORGE LUIS LYNCH, ANNALISA Shameka Ot V57.89 REHABILITATION PROC NEC 08/15/2014 Ot 782.3 08/15/2014 Ot 729.82 08/15/2014 Ot 782.3 08/15/2014 Ot 218.9 08/15/2014 Ot 793.89 08/15/2014 Ot V76.12 08/15/2014 Ot 793.80 08/15/2014 Ot 611.72 08/15/2014 Ot V67.9 08/15/2014 Ot 781.1 08/15/2014 Ot 786.50 08/15/2014 Ot 789.00 08/15/2014 Ot V72.84 08/15/2014 Ot 530.5 08/15/2014 Ot 786.50 08/15/2014 Ot V81.5 08/15/2014 Ot 530.5 08/15/2014 Ot 553.3 08/15/2014 Ot 786.50 08/15/2014 BAIMA OC L CONTAINER FINISHER Ot 140.0 08/15/2014 BAIMA OC L CONTAINER FINISHER Ot 401.9 08/15/2014 BAIMA OC L CONTAINER FINISHER Ot 786.50 08/15/2014 BAIMA OC L CONTAINER FINISHER Ot V12.29 08/15/2014 SHAILA LYNCH, PAOLA Vicente Ot V76.12 08/18/2014 JIMMIE BROOKS MD Ot 272.4 HYPERLIPIDEMIA NEC/NOS 08/18/2014 JIMMIE BROOKS MD Ot 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 08/18/2014 JIMMIE BROOKS MD Ot 276.8 HYPOPOTASSEMIA 08/18/2014 JIMMIE BROOKS MD Ot 277.7 DYSMETABOLIC SYNDROME X 08/18/2014 JIMMIE BROOKS MD Ot 401.9 HYPERTENSION NOS 08/18/2014 JIMMIE BROOKS MD Ot 414.01 CORONARY ATHEROSCLEROSIS OF [place] CORON 08/18/2014 JIMMIE BROOKS MD Ot 493.90 ASTHMA, UNSPECIFIED 08/18/2014 JIMMIE BROOKS MD Ot 551.8 HERNIA, SITE NEC W GANGR 08/18/2014 JIMMIE BROOKS MD Ot V45.82 PERCUTANEOUS TRANSLUM CORON ANGIOPLASTY 09/13/2014 Ot 311 DEPRESSIVE DISORDER NEC 09/13/2014 Ot 401.9 HYPERTENSION NOS 09/13/2014 Ot 560.9 INTESTINAL OBSTRUCT NOS 09/13/2014 Ot 564.00 UNSPEC CONSTIPATION 09/13/2014 Ot V58.69 OTH MED,LT, CURRENT USE 07/16/2015 Ot 218.9 07/16/2015 Ot 793.89 07/16/2015 Ot V76.12 07/16/2015 Ot 793.80 07/16/2015 Ot 611.72 07/16/2015 Ot V67.9 07/16/2015 Ot 781.1 07/16/2015 Ot 786.50 07/16/2015 Ot 789.00 07/16/2015 Ot V72.84 07/16/2015 Ot 530.5 07/16/2015 Ot 786.50 07/16/2015 Ot V81.5 07/16/2015 Ot 530.5 07/16/2015 Ot 553.3 07/16/2015 Ot 786.50 07/16/2015 OC NIÑO CONTAINER FINISHER Ot 140.0 07/16/2015 BAIOC BENSON L CONTAINER FINISHER Ot 401.9 07/16/2015 BAIMAOC L CONTAINER FINISHER Ot 786.50 07/16/2015 BAIMAOC L CONTAINER FINISHER Ot V12.29 07/16/2015 SHAILA LYNCH, PAOLA Vicente Ot V76.12 07/30/2015 KENA STONER DO S Ot M25.552 07/30/2015 KENA STONER DO S Ot M54.5 06/05/2016 Ot 793.89 OTH (ABN) FINDINGS ON RADIOLOGICAL EXAMI 06/05/2016 Ot V76.12 OTH SCREEN MAMMO-MALIGN NEOPLASM OF [place] 06/05/2016 Ot 793.80 UNSPEC ABNORMAL MAMMOGRAM 06/05/2016 Ot 611.72 LUMP OR MASS IN BREAST 06/05/2016 Ot V67.9 FOLLOW-UP EXAM NOS 06/05/2016 Ot 781.1 SMELL TASTE DISTURB 06/05/2016 Ot 786.50 CHEST PAIN NOS 06/05/2016 Ot 789.00 ABDOMINAL PAIN, UNSPECIFIED SITE 06/05/2016 Ot V72.84 EXAM PRE- OPERATIVE NOS 06/05/2016 Ot 530.5 DYSKINESIA OF ESOPHAGUS 06/05/2016 Ot 786.50 CHEST PAIN NOS 06/05/2016 Ot V81.5 SCREEN FOR NEPHROPATHY 06/05/2016 Ot 530.5 DYSKINESIA OF ESOPHAGUS 06/05/2016 Ot 553.3 DIAPHRAGMATIC HERNIA 06/05/2016 Ot 786.50 CHEST PAIN NOS 06/05/2016 OC NIÑO CONTAINER FINISHER Ot 140.0 MAL DANIEL UPPER VERMILION 06/05/2016 OC NIÑO CONTAINER FINISHER Ot 401.9 HYPERTENSION NOS 06/05/2016 BAIOC BENSON L CONTAINER FINISHER Ot 786.50 CHEST PAIN NOS 06/05/2016 OC NIÑO CONTAINER FINISHER Ot V12.29 PERSONAL HX OF OT ENDOCRINE, METABOLIC 06/05/2016 SHAILA LYNCH, PAOLA Vicente Ot V76.12 OTH SCREEN MAMMO-MALIGN NEOPLASM OF [place] 06/05/2016 KENA STONER DO Ot M25.552 PAIN IN LEFT HIP 06/05/2016 KENA STONER DO Ot M54.5 LOW BACK PAIN 06/07/2016 JIMMIE BROOKS MD Ot E78.5 HYPERLIPIDEMIA, UNSPECIFIED 06/07/2016 JIMMIE BROOKS MD Ot F32.9 MAJOR DEPRESSIVE DISORDER, SINGLE EPISOD 06/07/2016 JIMMIE BROOKS MD Ot F41.9 ANXIETY DISORDER, UNSPECIFIED 06/07/2016 JIMMIE BROOKS MD Ot I10 ESSENTIAL (PRIMARY) HYPERTENSION 06/07/2016 JIMMIE BROOKS MD Ot I25.10 ATHSCL HEART DISEASE OF [place] CORONARY 06/07/2016 JIMMIE BROOKS MD Ot J45.909 UNSPECIFIED ASTHMA, UNCOMPLICATED 06/07/2016 JIMMIE BROOKS MD Ot K56.5 INTESTINAL ADHESIONS W OBST (POSTPROCEDU 06/07/2016 JIMMIE BROOKS MD Ot K56.60 UNSPECIFIED INTESTINAL OBSTRUCTION 06/07/2016 JIMMIE BROOKS MD, Ot K59.00 CONSTIPATION, UNSPECIFIED 06/07/2016 JIMMIE BROOKS MD Ot Z95.5 PRESENCE OF CORONARY ANGIOPLASTY IMPLANT 06/07/2016 JIMMIE BROOKS MD, Ot Z98.0 INTESTINAL BYPASS AND ANASTOMOSIS STATUS 11/19/2016 Ot 793.89 OTH (ABN) FINDINGS ON RADIOLOGICAL EXAMI 11/19/2016 Ot V76.12 OTH SCREEN MAMMO-MALIGN NEOPLASM OF [place] 11/19/2016 Ot 793.80 UNSPEC ABNORMAL MAMMOGRAM 11/19/2016 Ot 611.72 LUMP OR MASS IN BREAST 11/19/2016 Ot V67.9 FOLLOW-UP EXAM NOS 11/19/2016 Ot 781.1 SMELL TASTE DISTURB 11/19/2016 Ot 786.50 CHEST PAIN NOS 11/19/2016 Ot 789.00 ABDOMINAL PAIN, UNSPECIFIED SITE 11/19/2016 Ot V72.84 EXAM PRE- OPERATIVE NOS 11/19/2016 Ot 530.5 DYSKINESIA OF ESOPHAGUS 11/19/2016 Ot 786.50 CHEST PAIN NOS 11/19/2016 Ot V81.5 SCREEN FOR NEPHROPATHY 11/19/2016 Ot 530.5 DYSKINESIA OF ESOPHAGUS 11/19/2016 Ot 553.3 DIAPHRAGMATIC HERNIA 11/19/2016 Ot 786.50 CHEST PAIN NOS 11/19/2016 BAIMA, OC L CONTAINER FINISHER Ot 140.0 MAL DANIEL UPPER VERMILION 11/19/2016 BAIMA, OC L CONTAINER FINISHER Ot 401.9 HYPERTENSION NOS 11/19/2016 BAIMA, OC L CONTAINER FINISHER Ot 786.50 CHEST PAIN NOS 11/19/2016 BAIMA, OC L CONTAINER FINISHER Ot V12.29 PERSONAL HX OF OT ENDOCRINE, METABOLIC 11/19/2016 SHAILA LYNCH, PAOLA Vicente Ot V76.12 OT SCREEN MAMMO-MALIGN NEOPLASM OF [place] 11/19/2016 KENA STONER DO S Ot M25.552 PAIN IN LEFT HIP 11/19/2016 KENA STONER DO S Ot M54.5 LOW BACK PAIN 12/25/2016 KENA STONER DO S Ot Z12.31 ENCNTR SCREEN MAMMOGRAM FOR MALIGNANT NE 01/06/2017 KENA STONER DO S Ot Z12.31 ENCNTR SCREEN MAMMOGRAM FOR MALIGNANT NE 03/15/2017 MARCI LUIS APRN Ot S20.01XA CONTUSION OF RIGHT BREAST, INITIAL ENCOU 03/15/2017 MARCI LUIS APRN Ot S29.9XXA UNSPECIFIED INJURY OF THORAX, INITIAL EN 03/15/2017 MARCI LUIS APRN Ot W19.XXXA UNSPECIFIED FALL, INITIAL ENCOUNTER 03/15/2017 MARCI LUIS APRN Ot Y99.8 OTHER EXTERNAL CAUSE STATUS 08/02/2017 EVELIO, MARGIEGISELL Daniels APRN Ot N63.10 UNSPECIFIED LUMP IN THE RIGHT BREAST, UN 08/12/2017 MARGIE FRASER ZURI Ot N63.10 UNSPECIFIED LUMP IN THE RIGHT BREAST, UN 02/23/2018 Ot G47.33 OBSTRUCTIVE SLEEP APNEA (ADULT) (PEDIATR 02/28/2018 Ot G47.33 OBSTRUCTIVE SLEEP APNEA (ADULT) (PEDIATR 07/17/2018 KENA STONER DO Ot I48.91 UNSPECIFIED ATRIAL FIBRILLATION 07/17/2018 KENA STONER DO Ot R00.2 PALPITATIONS Procedures Code Description Performed By Performed On 45.62 PART SM BOWEL RESECT NEC 08/15/2014 45.91 SM-TO-SM BOWEL ANASTOM 08/15/2014 54.51 LAPAROSCOP LYSIS-PERITONEAL ADHES 08/15/2014 Results Test Result Range Complete blood count (CBC) with automated white blood cell (WBC) differential - 06/04/16 21:30 Blood leukocytes automated count (number/volume) 8.3 10*3/uL 4.3-11.0 Blood erythrocytes automated count (number/volume) 5.33 10*6/uL 4.35-5.85 Venous blood hemoglobin measurement (mass/volume) 14.5 g/dL 11.5-16.0 Blood hematocrit (volume fraction) 43 % 35-52 Automated erythrocyte mean corpuscular volume 80 [foz_us] 80-99 Automated erythrocyte mean corpuscular hemoglobin (mass per erythrocyte) 27 pg 25-34 Automated erythrocyte mean corpuscular hemoglobin concentration measurement ( mass/volume) 34 g/dL 32-36 Automated erythrocyte distribution width ratio 12.9 % 10.0-14.5 Automated blood platelet count (count/volume) 327 10*3/uL 130-400 Automated blood platelet mean volume measurement 10.6 [foz_us] 7.4-10.4 Automated blood neutrophils/100 leukocytes 66 % 42-75 Automated blood lymphocytes/100 leukocytes 25 % 12-44 Blood monocytes/100 leukocytes 7 % 0-12 Automated blood eosinophils/100 leukocytes 3 % 0-10 Automated blood basophils/100 leukocytes 0 % 0-10 Blood neutrophils automated count (number/volume) 5.4 10*3 1.8-7.8 Blood lymphocytes automated count (number/volume) 2.0 10*3 1.0-4.0 Blood monocytes automated count (number/volume) 0.5 10*3 0.0-1.0 Automated eosinophil count 0.2 10*3/uL 0.0-0.3 Automated blood basophil count (count/volume) 0.0 10*3/uL 0.0-0.1 Comprehensive metabolic panel - 06/04/16 21:30 Serum or plasma sodium measurement (moles/volume) 143 mmol/L 135-145 Serum or plasma potassium measurement (moles/volume) 3.8 mmol/L 3.6-5.0 Serum or plasma chloride measurement (moles/volume) 104 mmol/L 98-107 Carbon dioxide 27 mmol/L 21-32 Serum or plasma anion gap determination (moles/volume) 12 mmol/L 5-14 Serum or plasma urea nitrogen measurement (mass/volume) 26 mg/dL 7-18 Serum or plasma creatinine measurement (mass/volume) 1.32 mg/dL 0.60-1.30 Serum or plasma urea nitrogen/creatinine mass ratio 20 NRG Serum or plasma creatinine measurement with calculation of estimated glomerular filtration rate 41 NRG Serum or plasma glucose measurement (mass/volume) 104 mg/dL 70-105 Serum or plasma calcium measurement (mass/volume) 9.9 mg/dL 8.5-10.1 Serum or plasma total bilirubin measurement (mass/volume) 0.3 mg/dL 0.1-1.0 Serum or plasma alkaline phosphatase measurement (enzymatic activity/volume) 221 U/L 40-136 Serum or plasma aspartate aminotransferase measurement (enzymatic activity/ volume) 25 U/L 5-34 Serum or plasma alanine aminotransferase measurement (enzymatic activity/volume ) 29 U/L 0-55 Serum or plasma protein measurement (mass/volume) 7.3 g/dL 6.4-8.2 Serum or plasma albumin measurement (mass/volume) 4.4 g/dL 3.2-4.5 Serum or plasma amylase measurement (enzymatic activity/volume) - 06/04/16 21: 30 Serum or plasma amylase measurement (enzymatic activity/volume) 95 U /L 25-125 Lipase - 06/04/16 21:30 Lipase 41 U/L 8-78 Complete urinalysis with reflex to culture - 06/04/16 21:35 Urine color determination YELLOW NRG Urine clarity determination CLEAR NRG Urine pH measurement by test strip 7 5-9 Specific gravity of urine by test strip 1.010 1.016- 1.022 Urine protein assay by test strip, semi-quantitative NEGATIVE NEGATIVE Urine glucose detection by automated test strip NEGATIVE NEGATIVE Erythrocytes detection in urine sediment by light microscopy NEGATIVE NEGATIVE Urine ketones detection by automated test strip NEGATIVE NEGATIVE Urine nitrite detection by test strip NEGATIVE NEGATIVE Urine total bilirubin detection by test strip NEGATIVE NEGATIVE Urine urobilinogen measurement by automated test strip (mass/volume) NORMAL NORMAL Urine leukocyte esterase detection by dipstick 1+ NEGATIVE Automated urine sediment erythrocyte count by microscopy (number/high power field) NONE NRG Automated urine sediment leukocyte count by microscopy (number/high power field ) [HPF] NRG Bacteria detection in urine sediment by light microscopy NONE NRG Squamous epithelial cells detection in urine sediment by light microscopy RARE NRG Crystals detection in urine sediment by light microscopy NONE NRG Casts detection in urine sediment by light microscopy NONE NRG Mucus detection in urine sediment by light microscopy NEGATIVE NRG Complete urinalysis with reflex to culture NO NRG Complete blood count (CBC) with automated white blood cell (WBC) differential - 06/05/16 05:40 Blood leukocytes automated count (number/volume) 7.7 10*3/uL 4.3-11.0 Blood erythrocytes automated count (number/volume) 4.58 10*6/uL 4.35-5.85 Venous blood hemoglobin measurement (mass/volume) 12.3 g/dL 11.5-16.0 Blood hematocrit (volume fraction) 37 % 35-52 Automated erythrocyte mean corpuscular volume 81 [foz_us] 80-99 Automated erythrocyte mean corpuscular hemoglobin (mass per erythrocyte) 27 pg 25-34 Automated erythrocyte mean corpuscular hemoglobin concentration measurement ( mass/volume) 33 g/dL 32-36 Automated erythrocyte distribution width ratio 12.8 % 10.0-14.5 Automated blood platelet count (count/volume) 273 10*3/uL 130-400 Automated blood platelet mean volume measurement 10.3 [foz_us] 7.4-10.4 Automated blood neutrophils/100 leukocytes 72 % 42-75 Automated blood lymphocytes/100 leukocytes 21 % 12-44 Blood monocytes/100 leukocytes 7 % 0-12 Automated blood eosinophils/100 leukocytes 1 % 0-10 Automated blood basophils/100 leukocytes 0 % 0-10 Blood neutrophils automated count (number/volume) 5.6 10*3 1.8-7.8 Blood lymphocytes automated count (number/volume) 1.6 10*3 1.0-4.0 Blood monocytes automated count (number/volume) 0.5 10*3 0.0-1.0 Automated eosinophil count 0.1 10*3/uL 0.0-0.3 Automated blood basophil count (count/volume) 0.0 10*3/uL 0.0-0.1 Comprehensive metabolic panel - 06/05/16 05:40 Serum or plasma sodium measurement (moles/volume) 141 mmol/L 135-145 Serum or plasma potassium measurement (moles/volume) 4.3 mmol/L 3.6-5.0 Serum or plasma chloride measurement (moles/volume) 107 mmol/L 98-107 Carbon dioxide 26 mmol/L 21-32 Serum or plasma anion gap determination (moles/volume) 8 mmol/L 5-14 Serum or plasma urea nitrogen measurement (mass/volume) 22 mg/dL 7-18 Serum or plasma creatinine measurement (mass/volume) 0.94 mg/dL 0.60-1.30 Serum or plasma urea nitrogen/creatinine mass ratio 23 NRG Serum or plasma creatinine measurement with calculation of estimated glomerular filtration rate > NRG Serum or plasma glucose measurement (mass/volume) 135 mg/dL 70-105 Serum or plasma calcium measurement (mass/volume) 8.6 mg/dL 8.5-10.1 Serum or plasma total bilirubin measurement (mass/volume) 0.4 mg/dL 0.1-1.0 Serum or plasma alkaline phosphatase measurement (enzymatic activity/volume) 170 U/L 40-136 Serum or plasma aspartate aminotransferase measurement (enzymatic activity/ volume) 19 U/L 5-34 Serum or plasma alanine aminotransferase measurement (enzymatic activity/volume ) 22 U/L 0-55 Serum or plasma protein measurement (mass/volume) 5.5 g/dL 6.4-8.2 Serum or plasma albumin measurement (mass/volume) 3.4 g/dL 3.2-4.5 Encounters ACCT No. Visit Date/Time Discharge Status Pt. Type Provider Facility Loc./Unit Complaint [id number] 07/18/2018 00:11:00 07/18/2018 23:59:59 CLS Preadmit KEAN STONER DO [facility] CARD A FIB ON SLEEP STUDY ,PALPITATIONS [id number] 05/16/2018 11:23:00 07/17/2018 00:01:00 DIS Outpatient KENA STONER DO S [facility] CARD A FIB ON SLEEP STUDY,PALPITATIONS [id number] 08/01/2017 12:31:00 08/01/2017 23:59:59 CLS Outpatient MARGIE FRASER RN HEMATOLOGY [facility] RAD DFS [id number] 07/27/2017 09:45:00 07/27/2017 23:59:59 CLS Preadmit MARGIE FRASER RN HEMATOLOGY [facility] RAD BREAST MASS ON RIGHT SIDE [id number] 02/24/2017 12:27:00 02/24/2017 23:59:59 CLS Outpatient MARCI LUIS RN HEMATOLOGY [facility] RAD S20.01XA [id number] 12/23/2016 09:54:00 12/23/2016 23:59:59 CLS Outpatient KENA STONER DO [facility] RAD SCREENING Z12.31 [id number] 06/05/2016 00:52:00 06/07/2016 15:20:00 DIS Inpatient JIMMIE BROOKS MD [facility] 4TH SMALL BOWEL OBSTRUCTION [id number] 07/16/2015 07:50:00 07/16/2015 23:59:59 CLS Outpatient KENA STONER DO [facility] RAD LEFT HIP PAIN, LOW BACK PAIN [id number] 08/15/2014 05:15:00 08/18/2014 13:48:00 DIS Inpatient JIMMIE BROOKS MD [facility] SURGICAL SMALL BOWEL OBSTRUCTION,HYPOKALEMIA [id number] 09/07/2013 10:20:00 09/07/2013 23:59:59 CLS Outpatient PAOLA LINTON MD [facility] RAD SCREENING [id number] 06/15/2013 12:16:00 07/09/2013 13:06:00 DIS Outpatient ANNALISA KANG MD [facility] CR STENT [id number] 05/10/2013 07:38:00 05/10/2013 23:59:59 CLS Outpatient KRYSTALMARCELINOOCP [facility] RAD CP,CAD,HLP,HTN [id number] 04/18/2013 15:07:00 04/18/2013 16:10:00 DIS Emergency HEIDI GODINEZ DO [facility] ER NECK/L SHOULDER PAIN [id number] 01/24/2013 12:17:00 01/29/2013 12:26:00 DIS Outpatient DONITA LYNCH FACC, TJ RICHTER CCDS [facility] CR STENT [id number] 09/22/2018 08:51:00 ACT Emergency ADEEL RAINES MD [facility] ER ABD PAIN/VOMITING [id number] 02/22/2018 19:54:00 Document Registration [id number] 09/09/2014 23:20:00 Document Registration [id number] 10/31/2012 12:34:00 Document Registration [id number] 10/12/2012 08:10:00 Document Registration [id number] 10/10/2012 07:39:00 Document Registration [id number] 08/08/2012 08:32:00 Document Registration [id number] 08/03/2012 07:15:00 Document Registration [id number] 08/02/2012 08:55:00 Document Registration [id number] 07/25/2012 07:49:00 Document Registration [id number] 07/21/2012 22:00:00 Document Registration [id number] 04/11/2012 09:41:00 Document Registration [id number] 09/28/2011 08:56:00 Document Registration [id number] 06/30/2011 08:05:00 Document Registration [id number] 06/21/2011 10:04:00 Document Registration [id number] 04/18/2011 15:48:00 Document Registration [id number] 05/15/2010 13:30:00 Document Registration [id number] 02/24/2009 11:21:00 Document Registration [id number] 02/24/2009 11:12:00 Document Registration 02/04/16 04/06/2018 13:21:44 04/06/2018 23:59:59 [facility] Outpatient Kena Stoner [id number] 08/17/2014 17:21:45 ACT Document Registration
[2018-09-22 09:45] LABS: BILIRUBIN,URINE NEGATIVE (NEGATIVE); CLARITY,URINE SLIGHTLY CLOUDY; COLOR,URINE YELLOW; GLUCOSE, URINE (UA) NEGATIVE (NEGATIVE); KETONES,URINE NEGATIVE (NEGATIVE); LEUKOCYTE ESTERASE ,URINE 1+ (NEGATIVE); NITRITE,URINE NEGATIVE (NEGATIVE); PH,URINE 8 (5-9); PROTEIN,URINE 2+ (NEGATIVE); UROBILINOGEN,URINE NORMAL (NORMAL)
[2018-09-22] MEDS ORDERED: ONDANSETRON 4 MG/2 ML (SDV) Z0FRAN IVP ONE (09:45)
[2018-09-22] MEDS ORDERED: fentaNYL INJECTION 100 MCG/2 ML AMP IVP ONE (09:45)
--- NOTE | 2018-09-22 09:45 | ED GI ---
General Chief Complaint: Abdominal/GI Problems Stated Complaint: ABD PAIN/VOMITING Nursing Triage Note: pt reports intermittent abdominal pain since 2300 last night, and n/v since 0800 this am. pt has hx of bowel obstruction and reports the pain feels similar. Sepsis Screen: No Definite Risk Source of Information: Patient, Family Exam Limitations: No Limitations History of Present Illness Date Seen by Provider: Sep 22, 2018 Time Seen by Provider: 09:42 Initial Comments The patient is a 63-year-old white female who presents to the emergency room with her . She reports that last night at about 2300 hours she began to have abdominal pain. This was primarily central epigastric and right upper quadrant. This morning she had one large vomitus and has been feeling quite nauseated. She has a past history of a bowel obstruction and a small intestine resection. She had seen Dr. Heard for this and he had warned her that this was likely to occur again. She fears that again may be today. Timing/Duration: 12 Hours Severity/Quality: Moderate, Cramping Location: RUQ, Epigastric Radiation: Flank Allergies and Home Medications Allergies Coded Allergies: Fish Containing Products (Verified Allergy, Unknown, 08/15/14) Home Medications Albuterol Sulfate 8.5 Gm Hfa.aer.ad, 2 PUFF IH TID PRN for SHORTNESS OF BREATH, (Reported) Amlodipine Besylate 5 Mg Tablet, 5 MG PO BID, (Reported) Aspirin 81 Mg Tabec, 81 MG PO DAILY, (Reported) Atorvastatin Calcium 40 Mg Tablet, 40 MG PO HS, (Reported) Furosemide 40 Mg Tablet, 80 MG PO DAILY, (Reported) TAKES 2 (40 MG) TABLETS Losartan Potassium 100 Mg Tablet, 100 MG PO DAILY, (Reported) Meloxicam 15 Mg Tablet, 15 MG PO HS, (Reported) Polyethylene Glycol 3350 17 Gm Powd.pack, 17 GM PO DAILY, (Reported) Trazodone Hcl 150 Mg Tablet, 75 MG PO HS, (Reported) TAKES 1/2 (150MG) TABLET Patient Home Medication List Home Medication List Reviewed: Yes Review of Systems Review of Systems Constitutional: see HPI EENTM: No Symptoms Reported Respiratory: No Symptoms Reported Cardiovascular: No Symptoms Reported Gastrointestinal: No Symptoms Reported Genitourinary: No Symptoms Reported Musculoskeletal: no symptoms reported Skin: no symptoms reported Psychiatric/Neurological: No Symptoms Reported Endocrine: No Symptoms Reported Hematologic/Lymphatic: No Symptoms Reported Past Fzzdfte-Guoctv-Ppsqrv Hx Patient Social History Alcohol Use: Denies Use Recreational Drug Use: No Smoking Status: Never a Smoker Recent Foreign Travel: No Contact w/Someone Who Travel: No Recent Infectious Disease Expo: No Recent Hopitalizations: No Physical Abuse: No Sexual Abuse: No Mistreated: No Fear: No Immunizations Up To Date Tetanus Booster (TDap): Less than 5yrs Date of Pneumonia Vaccine: Dec 09, 2013 Date of Influenza Vaccine: May 04, 2016 Seasonal Allergies Seasonal Allergies: No Past Medical History Surgeries: Yes (MYOMECTOMY, UTERINE ARTERY EMBOLIZATION; sm intestine resection ) Abdominal, Appendectomy, Coronary Stent Respiratory: Yes (ALPHA 1 ANTITRYPSIN SYNDROME) Asthma Currently Using CPAP: No Currently Using BIPAP: No Cardiac: Yes (STENTS X 2) Coronary Artery Disease, High Cholesterol, Hypertension Neurological: No Reproductive Disorders: Yes (UTERINE FIBROID TUMORS, UTERINE ARTERY EMBOLIZATION AND MYOMECTOMY) 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 Sexually Transmitted Disease: No Gastrointestinal: Yes (BOWEL RESECTION, DIVERTICULITIS) Obstructive Bowel, Hemorrhoids Musculoskeletal: Yes Arthritis Endocrine: No Cataract Loss of Vision: Denies Hearing Impairment: Denies Cancer: No Psychosocial: Yes Anxiety, Depression Integumentary: No Blood Disorders: No Adverse Reaction/Blood Tranf: No Family Medical History Cataracts 19 FATHER, Onset:Unknown Dementia paternal grandmother, Onset:Unknown Drug abuse SON, Onset:Unknown FH: heart disease 19 MOTHER, Onset:Unknown FH: hepatitis SON, Onset:Unknown (hepatitis A) Hypertension 19 FATHER, Onset:Unknown 19 MOTHER Physical Exam Vital Signs Vital Signs - First Documented 09/22/18 09:18 Temp 98.3 Pulse 65 Resp 18 B/P (MAP) 208/76 (120) Pulse Ox 92 Capillary Refill : Less Than 3 Seconds Height/Weight/BMI Height: 5'4.00" Weight: 270lbs. 7.0oz. 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, no motor/sensory deficits, alert, normal mood/affect, oriented x 3 Skin: normal color, warm/dry Lymphatic: no adenopathy Progress/Results/Core Measures Results/Orders Lab Results Laboratory Tests Test 09/22/18 09:08 09/22/18 09:32 Range/Units Urine Color YELLOW Urine Clarity SLIGHTLY CLOUDY Urine pH 8 5-9 Urine Specific [place] 1.010 L 1.016-1.022 Urine Protein 2+ H NEGATIVE Urine Glucose (UA) NEGATIVE NEGATIVE Urine Ketones NEGATIVE NEGATIVE Urine Nitrite NEGATIVE NEGATIVE Urine Bilirubin NEGATIVE NEGATIVE Urine Urobilinogen NORMAL NORMAL MG/DL Urine Leukocyte Esterase 1+ H NEGATIVE Urine RBC (Auto) NEGATIVE NEGATIVE Urine RBC 0-2 /HPF Urine WBC RARE /HPF Urine Squamous Epithelial Cells 0-2 /HPF Urine Crystals PRESENT H /LPF Urine Amorphous Sediment MOD EPIFANIO PHOSPHATE H /LPF Urine Bacteria TRACE /HPF Urine Casts NONE /LPF Urine Mucus NEGATIVE /LPF Urine Culture Indicated NO White Blood Count 8.6 4.3-11.0 10^3/uL Red Blood Count 4.67 4.35-5.85 10^6/uL Hemoglobin 12.5 11.5-16.0 G/DL Hematocrit 38 35-52 % Mean Corpuscular Volume 82 80-99 FL Mean Corpuscular Hemoglobin 27 25-34 PG Mean Corpuscular Hemoglobin Concent 33 32-36 G/DL Red Cell Distribution Width 13.6 10.0-14.5 % Platelet Count 345 130-400 10^3/uL Mean Platelet Volume 10.3 7.4-10.4 FL Neutrophils (%) (Auto) 81 H 42-75 % Lymphocytes (%) (Auto) 14 12-44 % Monocytes (%) (Auto) 5 0-12 % Eosinophils (%) (Auto) 1 0-10 % Basophils (%) (Auto) 0 0-10 % Neutrophils # (Auto) 7.0 1.8-7.8 X 10^3 Lymphocytes # (Auto) 1.2 1.0-4.0 X 10^3 Monocytes # (Auto) 0.4 0.0-1.0 X 10^3 Eosinophils # (Auto) 0.1 0.0-0.3 10^3/uL Basophils # (Auto) 0.0 0.0-0.1 10^3/uL Sodium Level 140 135-145 MMOL/L Potassium Level 4.1 3.6-5.0 MMOL/L Chloride Level 104 98-107 MMOL/L Carbon Dioxide Level 27 21-32 MMOL/L Anion Gap 9 5-14 MMOL/L Blood Urea Nitrogen 17 7-18 MG/DL Creatinine 0.89 0.60-1.30 MG/DL Estimat Glomerular Filtration Rate > 60 BUN/Creatinine Ratio 19 Glucose Level 124 H 70-105 MG/DL Calcium Level 9.8 8.5-10.1 MG/DL Corrected Calcium 9.6 8.5-10.1 MG/DL Total Bilirubin 0.4 0.1-1.0 MG/DL Aspartate Amino Transf (AST/SGOT) 24 5-34 U/L Alanine Aminotransferase (ALT/SGPT) 30 0-55 U/L Alkaline Phosphatase 180 H 40-136 U/L Total Protein 7.0 6.4-8.2 GM/DL Albumin 4.3 3.2-4.5 GM/DL My Orders Orders - ADEEL RAINES MD Cbc With Automated Diff (09/22/18 09:24) Comprehensive Metabolic Panel (09/22/18 09:24) Ua Culture If Indicated (09/22/18 09:24) Abdomen/Kub 1view (09/22/18 09:38) Fentanyl Injection (Sublimaze Injection (09/22/18 09:45) Ondansetron Injection (Zofran Injectio (09/22/18 09:45) Ct Abdomen/Pelvis W (09/22/18 10:28) Iohexol Injection (Omnipaque 350 Mg/Ml 1 (09/22/18 10:30) Received Contrast (Contrast Received) (09/22/18 10:30) Sodium Chloride Flush (Catheter Flush Sy (09/22/18 10:30) Ns (Ivpb) (Sodium Chloride 0.9% Ivpb Bag (09/22/18 10:30) Medications Given in ED Current Medications Medications Dose Ordered Sig/Shirin Route Start Time Stop Time Status Last Admin Dose Admin Fentanyl Citrate 50 mcg ONCE ONCE IVP 09/22/18 09:45 09/22/18 09:46 DC 09/22/18 10:01 50 MCG Iohexol 100 ml ONCE ONCE IV 09/22/18 10:30 09/22/18 10:31 DC 09/22/18 10:36 100 ML Ondansetron HCl 8 mg ONCE ONCE IVP 09/22/18 09:45 09/22/18 09:46 DC 09/22/18 10:02 8 MG Sodium Chloride 100 ml ONCE ONCE IV 09/22/18 10:30 09/22/18 10:31 DC 09/22/18 10:36 80 ML Vital Signs/I&O 09/22/18 09:18 Temp 98.3 Pulse 65 Resp 18 B/P (MAP) 208/76 (120) Pulse Ox 92 Blood Pressure Mean: 120 Departure Communication (Admissions) CT report confirms patient's fear of small bowel obstruction. By fortunate chance Dr. Heard is on-call. Impression Primary Impression: small bowel obstruction Disposition: ADMITTED INPATIENT Condition: Stable/Unchanged Admissions Decision to Admit Reason: Admit from ER (General) Decision to Admit/Date: Sep 22, 2018 Time/Decision to Admit Time: 11:44 Departure-Patient Inst. Referrals: AIDEN GOTTI DO (PCP/Family) Primary Care Physician ADEEL RAINES MD Sep 22, 2018 09:45
[2018-09-22 09:55] LABS: BASOPHILS % (AUTO) 0 % (0-10); EOSINOPHILS # (AUTO) 0.1 10^3/uL (0.0-0.3); EOSINOPHILS % (AUTO) 1 % (0-10); HEMATOCRIT 38 % (35-52); HEMOGLOBIN 12.5 G/DL (11.5-16.0); LYMPHOCYTES # (AUTO) 1.2 X 10^3 (1.0-4.0); LYMPHOCYTES % (AUTO) 14 % (12-44); MEAN CORPUSCULAR HEMOGLOBIN 27 PG (25-34); MEAN CORPUSCULAR HGB CONC 33 G/DL (32-36); MEAN CORPUSCULAR VOLUME 82 FL (80-99); MEAN PLATELET VOLUME 10.3 FL (7.4-10.4); MONOCYTES # (AUTO) 0.4 X 10^3 (0.0-1.0); MONOCYTES % (AUTO) 5 % (0-12); NEUTROPHILS % (AUTO) 81 % (42-75); PLATELET COUNT 345 10^3/uL (130-400); RED CELL DISTRIBUTION WIDTH 13.6 % (10.0-14.5); WHITE BLOOD COUNT 8.6 10^3/uL (4.3-11.0)
[2018-09-22 10:00] LABS: AMORPHOUS SEDIMENT,UR MOD AMOR PHOSPHATE /LPF; BACTERIA,URINE TRACE /HPF; RBC,URINE 0-2 /HPF; SQUAMOUS EPITHELIAL CELL,UR 0-2 /HPF; WBC,URINE RARE /HPF
--- NOTE | 2018-09-22 10:02 | Diagnostic Imaging Report ---
INDICATION: Nausea and vomiting. TIME OF EXAM: 9:46 AM FINDINGS: Bowel gas pattern appears nonobstructed. There are postsurgical changes in the right abdomen. No definite free air is seen. No pathologic calcifications are seen. IMPRESSION: No acute abnormality is detected. Dictated by: Dictated on workstation # [id number]
[2018-09-22 10:06] LABS: ALANINE AMINOTRANSFERASE 30 U/L (0-55); ALBUMIN 4.3 GM/DL (3.2-4.5); ALKALINE PHOSPHATASE 180 U/L (40-136); BILIRUBIN,TOTAL 0.4 MG/DL (0.1-1.0); BUN/CREATININE RATIO 19; CALCIUM 9.8 MG/DL (8.5-10.1); CARBON DIOXIDE 27 MMOL/L (21-32); CHLORIDE 104 MMOL/L (98-107); CREATININE SERUM 0.89 MG/DL (0.60-1.30); GFR ESTIMATED > 60; GLUCOSE 124 MG/DL (70-105); POTASSIUM 4.1 MMOL/L (3.6-5.0); SODIUM 140 MMOL/L (135-145)
--- NOTE | 2018-09-22 10:18 | NUR ---
pt placed on 2 l nc at this time for 02 sat of 88%. pt now sating 96%. Pt is alert and oriented.
[2018-09-22] MEDS ORDERED: HOLD METFORMIN - RECEIVED CONTRAST 20 ML VIAL IV SCH (10:30)
[2018-09-22] MEDS ORDERED: CATHETER FLUSH 10 ML SYR IV PRN (10:30)
[2018-09-22] MEDS ORDERED: NS 100 ML (IVPB) BAG IV ONE (10:30)
[2018-09-22] MEDS ORDERED: IOHEXOL 350 MG/ML 100 ML (OMNIPAQUE 350) VIAL IV ONE (10:30)
--- NOTE | 2018-09-22 11:17 | Diagnostic Imaging Report ---
PROCEDURE: CT abdomen and pelvis with contrast. TECHNIQUE: Multiple contiguous axial images were obtained through the abdomen and pelvis after administration of intravenous contrast. DATE: September 22, 2018. COMPARISON: K[facility] September 22, 2018. CT abdomen and pelvis June 04, 2016. INDICATION: 63-year-old female, abdominal pain and vomiting. FINDINGS: There is mild dependent atelectasis and/or scarring. The heart is not enlarged. There is no pericardial effusion. The liver is normal in size and contour. There is no identified liver lesion. The main, right, and left portal veins are patent. The gallbladder is unremarkable. There is no intrahepatic or extrahepatic bile duct dilation. The main pancreatic duct is not abnormally dilated. The pancreatic parenchyma is unremarkable. The spleen is normal in size. The adrenal glands are unremarkable. Unremarkable appearance of the renal parenchyma. Urinary collecting systems are not distended. There is no identified renal or ureteral stone. The urinary bladder is unremarkable in appearance. There is a very small hiatal hernia. There are abnormally distended fluid-filled segments of small bowel which measure up to approximately 3.1 cm in diameter. The distal ileum is not distended. The exact transition point for the change in bowel caliber is difficult to identify. The findings are concerning for a mid to distal small bowel obstruction. There is a very small amount of free pelvic fluid. There is no drainable fluid collection. There is no free intraperitoneal air. There is a broad-based anterior abdominal wall hernia containing fat. There are atherosclerotic calcifications. There is no identified abnormally enlarged lymph node in the abdomen or pelvis which meets CT size criteria for adenopathy. There is no identified acute bony abnormality. There are mild degenerative changes of the spine. IMPRESSION: CT ABDOMEN AND PELVIS. 1. Abnormally dilated segments of small bowel concerning for mid to distal small bowel obstruction. Exact transition point is difficult to identify. 2. Very small hiatal hernia. 3. Small amount of free pelvic fluid. No drainable fluid collection. Dictated by: Dictated on workstation # [id number]
--- NOTE | 2018-09-22 12:19 | NUR ---
HOUSE SUP CALLED FOR ROOM AT THIS TIME.
--- OUTSIDE RECORDS SUMMARY | 2018-09-22 12:54 | XMS REPORT | Encounter Summary ---
Author Author [facility] Organization [facility] Address Unknown Phone Unavailable Care Team Providers Care Billing Coordinator Name Role Phone Kena Stoner MD PCP Tata Cohen MD Unavailable Christal Anderson RN Unavailable Unavailable Karina Tobias RN Unavailable Unavailable Marisol Toth RN Unavailable Unavailable Bethany Farris MD Unavailable Alexia Goldsmith Unavailable Unavailable Kesiha Reveles RN Unavailable Unavailable Reason for Visit * Auth/Cert Referred By Contact Referred To Contact Status Reason Specialty Diagnoses / Procedures Diagnoses Pulmonary HTN (HCC) Chest pain, unspecified type Procedures DC R & L HRT CATH WINJX HRT ART& L VENTR IMG DC PRQ TRLUML CORONARY STENT W/ANGIO ONE ART/BRNCH ANGIOGRAPHY CORONARY ARTERY WITH RIGHT AND LEFT HEART CATHETERIZATION POSSIBLE PERCUTANEOUS CORONARY STENT PLACEMENT WITH ANGIOPLASTY Encounter Details Care Team Description Date Type Department Bayron Chaudhari MD [address] [facility] [place] [address] Angina of effort (HCC) 07/06/2018 Hospital Cardiac Catheterization Encounter Laboratory [address] [place] [address] Social History Date Tobacco Use [...] Taken Vital Sign Reading 07/06/2018 12:45 PM HR RECEPTIONIST Blood Pressure 177/59 07/06/2018 12:45 PM HR RECEPTIONIST Pulse 54 07/06/2018 11:41 AM HR RECEPTIONIST Temperature 36.8 C (98.2 F) - Respiratory Rate - 07/06/2018 12:45 PM HR RECEPTIONIST Oxygen Saturation 96% - Inhaled Oxygen - Concentration 07/06/2018 8:16 AM HR RECEPTIONIST Weight 117.4 kg (258 lb 13.1 oz) 07/06/2018 8:16 AM HR RECEPTIONIST Height 162.6 cm (5' 4") 07/06/2018 8:16 AM HR RECEPTIONIST Body Mass Index 44.43 in this encounter Discharge Summaries * Zuleima Gonzales APRN - 07/06/2018 2:20 PM HR RECEPTIONIST Physician Discharge Summary Name: India Blackwell Date [...] Morbid obesity with BMI of 45.0-49.9, adult ([facility]) Surgical Procedures: None Significant Diagnostic Studies and [...] you to outpatient cardiac rehab. Contact [facility] Cardiac Rehab Department at [phone] to schedule an appointment. [facility] is a gathering place for individuals, families, [...] please call . You can also visit [email or web address] for more information. Questions About Your Stay For questions or concerns regarding your hospital stay: - DURING BUSINESS HOURS (8:00 AM - 4:30 PM): Call [phone] and asked to be transferred to your discharge attending physician. - AFTER BUSINESS HOURS (4:30 PM - 8:00 AM, on weekends, or holidays): Call [phone] and ask the switch operator to page the on-call doctor for the discharge attending physician. Discharging attending physician: BAYRON CHAUDHARI [[id number]] Return Appointment Please follow up with your [...] Scheduled appointments: Aug 30, 2018 11:00 AM HR RECEPTIONIST Return Patient with Bayron Chaudhari MD Cardiovascular Medicine ([facility]) [address] [address] Pending items needing follow up: as above Signed: Zuleima Gonzales APRN 07/06/2018 cc: Primary Care Physician: Kena Stoner Verified Referring physicians: Baldo Grande, * Additional provider(s): RECEPTIONIST in this encounter Discharge Instructions * Patient Instructions* Maria Esther Burden RN - 07/06/2018 12:23 PM HR RECEPTIONIST Manual Sheath Removal From A Large Vein [...] to speak with someone? During Business Hours: [facility] Cardiology Office at the [facility]: [phone] (Tuesday-Tuesday) [place]: [phone] (Tuesday-Tuesday) [place]: [phone] (Tuesday-Tuesday) [place]: [phone] (Tuesday and ) [place]: [phone] (Tuesday-Tuesday) [place]: [phone] (Tuesday-Tuesday) [place]: [phone] (Tuesday-) [facility] [address]: [phone] (Tuesday, Tuesday and Tuesday) [place]: [phone] (Tuesday, Tuesday and Tuesday) [place] ([place]): [phone] (Tuesday, Tuesday and Tuesday) Nights and Weekends [facility] Cardiology Office at the [facility]: [phone] This education is meant to serve as a resource to you and your family. It is not meant to be all inclusive. The members of the [facility] at [facility] Cardiology, , will be glad to answer any questions you may have about this booklet or your procedure. RECEPTIONIST in this encounter Medications at Time of [...] Esther Burden RN - 07/06/2018 2:20 PM HR RECEPTIONIST Patient discharged to home with all belongings. [...] via Family. Patient to follow up with [facility] Cardiology ([facility]) or on-call physician with any additional questions or concerns. All contact numbers provided. Patient and family acceptant of DC instuctions and report understanding to all information. RECEPTIONIST * Maria Esther Burden RN - 07/06/2018 8:00 AM HR RECEPTIONIST Patient arrived on unit via ambulation accompanied by family. Patient transferred to the bed without assistance. Frailty score equals 3 Assessment completed, refer to flowsheet for details. Orders released, reviewed, and implemented as appropriate. Oriented to surroundings, call light within reach. Plan of care reviewed. Will continue to monitor and assess. RECEPTIONIST in this encounter H&P Notes * Zuleima Gonzales APRN - 07/06/2018 10:22 AM HR RECEPTIONIST Patient presents for procedure. Please see History [...] CAD (coronary artery disease) 05/15/2013 10/31/12 [address] [place], [place] - Heart Cath: EF 65%. single [...] dysfunction (HCC) Yes Coronary artery disease involving sioux heart with angina pectoris, unspecified vessel or [...] mg by mouth at bedtime as needed. RECEPTIONIST in this encounter Procedure Notes * Bayron Chaudhari MD - 07/06/2018 2:20 PM HR RECEPTIONIST Associated Order(s): CARDIAC CATH REPORT [facility] at [facility] CARDIAC CATHETERIZATION REPORT Page 2 [place] Cuevas : 1955 [facility]#: [id number] MR #/Billing ID #: [id number] / [id number] DATE: 07/06/2018 FOOD AND BEVERAGE MANAGER: Bayron Chaudhari MD DICTATING PROVIDER: Prieto Lyons MD REFERRING PHYSICIAN: CATHETERIZATION REPORT: Interventional Cardiology, Dr. Bayron Chaudhari. Interventional hydrology technician, Prieto Lyons MD. PROCEDURE: 1. Left heart [...] therefore she was brought in to the brick and blocker aid labor today for coronary evaluation and right heart [...] cardiac tamponade. was also notified that Interventional hydrology technician will be assisting during the course of this procedure. informed consent was placed in the patient's chart. DESCRIPTION AND FINDINGS OF OPERATIVE PROCEDURE: After consent was obtained, patient was brought in the brick and blocker aid labor in a fasting state where she was prepped and draped in usual sterile fashion. out was obtained to verify patient, as well as site and type of the procedure. mL of 1% lidocaine was administered to the right neck and then with direct ultrasound guidance, we accessed the right internal jugular vein and an 8-Singaporean [place] sheath was inserted. we advanced our 7-Singaporean [place]-Ivy catheter. got sequential pressure in the RA, [...] common femoral artery with micropuncture needle and 5-Singaporean pinnacle sheath was inserted. did the left heart catheterization using a TIG 4.0 5-Singaporean catheter. see details of findings below. that, [...] assessment and recommendations as outlined above. Bayron Chauhdari MD BLOOD / MEDQ Job #: /[id number] p cc: RECEPTIONIST in this encounter Plan of Treatment Not on fileas of this encounter Procedures Comments Procedure Name Priority Date/Time Associated Diagnosis HOLTER WEARABLE ECG MARCO 07/13/2018 MONITOR CONNECT + SCAN 8:59 AM HR RECEPTIONIST CARDIAC CATH REPORT 07/06/2018 2:20 PM HR RECEPTIONIST O2HGB SAT-VENOUS POC 07/06/2018 10:43 AM HR RECEPTIONIST O2HGB SAT-VENOUS POC 07/06/2018 10:41 AM HR RECEPTIONIST CARDIAC CATH REPORT Routine 07/06/2018 Pulmonary HTN (HCC) 8:01 AM HR RECEPTIONIST Chest pain, unspecified type TELEMETRY STRIPS-SCAN 07/06/2018 12:00 AM HR RECEPTIONIST PROCEDURE RECORD-SCAN 07/06/2018 12:00 AM HR RECEPTIONIST CARDIAC CATH REPORT Routine 06/28/2018 Pulmonary HTN (HCC) 12:32 PM HR RECEPTIONIST Chest pain, unspecified type in this encounter Results * HOLTER WEARABLE ECG MONITOR CONNECT + SCAN (07/13/2018 8:59 AM HR RECEPTIONIST) Narrative Performed At OTHER OUTSIDE LAB Indication: Chest Pain Hookup date: 07/06/2018. Scan date: 07/13/2018. Start time: 12:40. The predominant rhythm shows sinus rhythm. Total beats recorded: 810023 Analysis time: 47 hr 49 min Mean [...] with intermittent episodes of sinus arrhythmia. 2. DC and QRS are within normal limits. 3. (2213) single SVEs, (458) paired, (107) runs of SVT. 4. (22) single VEs, trigeminy noted. 5. Patient diary was submitted symptoms noted, patient triggered event noted. Performing Organization Address City/State/Zipcode Phone Number OTHER OUTSIDE LAB * CARDIAC CATH REPORT (07/06/2018 2:20 PM HR RECEPTIONIST) Procedure Note Bayron Chaudhari MD - 07/06/2018 2:20 PM HR RECEPTIONIST [facility] CARDIAC CATHETERIZATION REPORT Page 2 [place] Cuevas : 1955 [facility]#: [id number] TANIA MR #/Billing ID #: [id number] / [id number] DATE: 07/06/2018 FOOD AND BEVERAGE MANAGER: Bayron Chaudhari MD DICTATING PROVIDER: Prieto Lyons MD REFERRING PHYSICIAN: CATHETERIZATION REPORT: Interventional Cardiology, Dr. Bayron Chaudhari. Interventional hydrology technician, Prieto Lyons MD. PROCEDURE: 1. Left heart [...] therefore she was brought in to the brick and blocker aid labor today for coronary evaluation and right heart [...] cardiac tamponade. was also notified that Interventional hydrology technician will be assisting during the course of this procedure. informed consent was placed in the patient's chart. DESCRIPTION AND FINDINGS OF OPERATIVE PROCEDURE: After consent was obtained, patient was brought in the brick and blocker aid labor in a fasting state where she was prepped and draped in usual sterile fashion. out was obtained to verify patient, as well as site and type of the procedure. mL of 1% lidocaine was administered to the right neck and then with direct ultrasound guidance, we accessed the right internal jugular vein and an 8-Singaporean [place] sheath was inserted. we advanced our 7-Singaporean [place]-Ivy catheter. got sequential pressure in the RA, [...] common femoral artery with micropuncture needle and 5-Singaporean pinnacle sheath was inserted. did the left heart catheterization using a TIG 4.0 5-Singaporean catheter. see details of findings below. that, [...] Chaudhari MD BLOOD / MEDQ Job #: [id number] p cc: Performing Organization Address [facility] Phone Number OTHER OUTSIDE LAB * O2HGB SAT-VENOUS POC (07/06/2018 10:43 AM HR RECEPTIONIST) O2HGB SAT-Venous POC 77.8 (H) 55 - 71 % [facility] MAIN LAB Performing Organization Address [place] [place] Phone Number MA[facility] LAB [address] [place] [address] * O2HGB SAT-VENOUS POC (07/06/2018 10:41 AM HR RECEPTIONIST) O2HGB SAT-Venous POC 80.6 (H) 55 - 71 % MAIN LAB Performing Organization Address [facility] [place] Phone Number [facility] LAB [address] [place] [address] * TELEMETRY STRIPS-SCAN (07/06/2018 12:00 AM HR RECEPTIONIST) Narrative Performed At Ordered by an unspecified provider. * PROCEDURE RECORD-SCAN (07/06/2018 12:00 AM HR RECEPTIONIST) Narrative Performed At Ordered by an unspecified [...] of volume overload., Pre-Op 07/06/2018 12:00 PM HR RECEPTIONIST 20 mL/hr sodium chloride 0.9 % infusion Dose/Rate 1,000 mL, Intravenous, at 75 mL/hr, Verify CONTINUOUS, Starting Damaris 07/06/18 at 0815, Until Damaris 07/06/18 at 1621, Admission/Obs/Extended Recovery 75 mL/hr Given - New Bag 07/06/2018 9:00 AM HR RECEPTIONIST temazepam (RESTORIL) capsule 15 mg 15 mg, Oral, AT BEDTIME PRN, Starting Damaris 07/06/18 at 0807, Until Damaris 07/06/18 at 1621, Insomnia, Admission/Obs/Extended Recovery in this encounter
--- OUTSIDE RECORDS SUMMARY | 2018-09-22 12:54 | XMS REPORT | Encounter Summary ---
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 Yes Y STARCH MOLD PRINTER in this encounter Plan of Treatment Not on fileas of this encounter Visit Diagnoses Not on filein this encounter
--- OUTSIDE RECORDS SUMMARY | 2018-09-22 12:54 | XMS REPORT | Encounter Summary ---
Author Author [facility] Organization [facility] Address Unknown Phone Unavailable Care Team Providers Care Circle Edger Name Role Phone Kena Stoner MD PCP [...] Diagnoses / Procedures Lloyd Chaudhari MD [address] [address] [place] [address] [address] [place] [address] No Auth Needed Cardiology Procedures REQUEST FOR CARDIOLOGY APPOINTMENT Reason for Visit * Reason Comments Results Encounter Details Care Team Description Date Type Department Ben Patel RN Results 08/01/2018 Telephone [facility] [address] [place] [address] 300 [address] [place] [address] Social History Date Tobacco Use Types Packs/Day [...] Ben Patel RN - 08/01/2018 2:45 PM WICKER WORKER Addended by: BEN PATEL on: 08/01/2018 02:45 PM Modules accepted: Orders ER WORKER * Telephone Encounter - Ben Patel RN - 08/01/2018 2:39 PM WICKER WORKER ----- Message from Lloyd Chaudhari MD sent at 07/28/2018 3:50 PM WICKER WORKER ----- Please let her know that she was found to have PSVT on her monitor. Can you please get her set up to see one of the EP docs? Let's also get her started on Toprol xl 25mg at nighttime. thanks ER WORKER in this encounter Plan of Treatment Not on fileas of this encounter Visit Diagnoses Not on filein this encounter
--- OUTSIDE RECORDS SUMMARY | 2018-09-22 12:54 | XMS REPORT | Encounter Summary ---
Author Author [facility] Organization [facility] Address Unknown Phone Unavailable Care Team Providers Care Children'S Entertainer Name Role Phone Kena Stoner MD PCP [...] Monitor Results 07/28/2018 Telephone [facility] [address] [place] [address] 300 [address] [place] [address] Social History Date Tobacco Use Types Packs/Day [...] Aubrie Martínez RN - 07/28/2018 5:09 PM VENEER PRESS OPERATOR ----- Message from Lloyd Chaudhari MD sent at 07/28/2018 3:50 PM VENEER PRESS OPERATOR ----- Please let her know that she was found to have PSVT on her monitor. Can you please get her set up to see one of the EP docs? Let's also get her started on Toprol xl 25mg at nighttime. thanks ER PRESS OPERATOR in this encounter Plan of Treatment Not on fileas of this encounter Visit Diagnoses Not on filein this encounter
--- OUTSIDE RECORDS SUMMARY | 2018-09-22 12:54 | XMS REPORT | Encounter Summary ---
Author Author [facility] Organization [facility] Address Unknown Phone Unavailable Care Team Providers Care Benchroom Shop Optician Name Role Phone Kena Stoner MD PCP [...] HTN (HCC) Chest pain, unspecified type Procedures MA R & L HRT CATH WINJX HRT ART& L VENTR IMG MA PRQ TRLUML CORONARY STENT W/ANGIO ONE ART/BRNCH ANGIOGRAPHY CORONARY ARTERY WITH RIGHT AND LEFT HEART CATHETERIZATION POSSIBLE PERCUTANEOUS CORONARY STENT PLACEMENT WITH ANGIOPLASTY Encounter Details Care Team Description Date Type Department Lloyd Chaudhari MD 4000 [facility] [place] [address] [phone] 07/06/2018 Hospital Cardiovascular Medicine Encounter [place] [address] [address] [place] [address] Social History Date Tobacco Use Types Packs/Day [...] Priority Date/Time Associated Diagnosis HOLTER WEARABLE ECG [facility] 07/13/2018 MONITOR CONNECT + SCAN 8:59 AM DUB ROOM ENGINEER in this encounter Visit Diagnoses Not on filein this encounter
--- OUTSIDE RECORDS SUMMARY | 2018-09-22 12:54 | XMS REPORT | Encounter Summary ---
Author Author [facility] Organization [facility] Address Unknown Phone Unavailable Care Team Providers Care Safety Advisor Name Role Phone Kena Stoner MD PCP [...] HTN (HCC) Chest pain, unspecified type Procedures NC R & L HRT CATH WINJX HRT ART& L VENTR IMG NC PRQ TRLUML CORONARY STENT W/ANGIO ONE ART/BRNCH ANGIOGRAPHY CORONARY ARTERY WITH RIGHT AND LEFT HEART CATHETERIZATION POSSIBLE PERCUTANEOUS CORONARY STENT PLACEMENT WITH ANGIOPLASTY Encounter Details Care Team Description Date Type Department Lloyd Chaudhari MD 4000 [facility]600 [place] [address] ANGIOGRAPHY CORONARY ARTERY WITH RIGHT AND LEFT HEART CATHETERIZATION 07/06/2018 Surgery Cardiac Catheterization Laboratory [address] [place] [address] Social History Date Tobacco Use [...] Taken Vital Sign Reading 07/06/2018 12:45 PM CLINICAL INFORMATICS EDUCATOR Blood Pressure 177/59 07/06/2018 12:45 PM CLINICAL INFORMATICS EDUCATOR Pulse 54 07/06/2018 11:41 AM CLINICAL INFORMATICS EDUCATOR Temperature 36.8 C (98.2 F) - Respiratory Rate - 07/06/2018 12:45 PM CLINICAL INFORMATICS EDUCATOR Oxygen Saturation 96% - Inhaled Oxygen - Concentration 07/06/2018 8:16 AM CLINICAL INFORMATICS EDUCATOR Weight 117.4 kg (258 lb 13.1 oz) 07/06/2018 8:16 AM CLINICAL INFORMATICS EDUCATOR Height 162.6 cm (5' 4") 07/06/2018 8:16 AM CLINICAL INFORMATICS EDUCATOR Body Mass Index 44.43 in this encounter [...] 07/13/2018 MONITOR CONNECT + SCAN 8:59 AM CLINICAL INFORMATICS EDUCATOR CARDIAC CATH REPORT 07/06/2018 2:20 PM CLINICAL INFORMATICS EDUCATOR O2HGB SAT-VENOUS POC 07/06/2018 10:43 AM CLINICAL INFORMATICS EDUCATOR O2HGB SAT-VENOUS POC 07/06/2018 10:41 AM CLINICAL INFORMATICS EDUCATOR CARDIAC CATH REPORT Routine 07/06/2018 Pulmonary HTN (HCC) 8:01 AM CLINICAL INFORMATICS EDUCATOR Chest pain, unspecified type TELEMETRY STRIPS-SCAN 07/06/2018 12:00 AM CLINICAL INFORMATICS EDUCATOR PROCEDURE RECORD-SCAN 07/06/2018 12:00 AM CLINICAL INFORMATICS EDUCATOR CARDIAC CATH REPORT Routine 06/28/2018 Pulmonary HTN (HCC) 12:32 PM CLINICAL INFORMATICS EDUCATOR Chest pain, unspecified type in this encounter Results * HOLTER WEARABLE ECG MONITOR CONNECT + SCAN (07/13/2018 8:59 AM CLINICAL INFORMATICS EDUCATOR) Narrative Performed At OTHER OUTSIDE LAB Indication: Chest Pain Hookup date: 07/06/2018. Scan date: 07/13/2018. Start time: 12:40. The predominant rhythm shows sinus rhythm. Total beats recorded: [id number] Analysis time: 47 hr 49 min Mean [...] with intermittent episodes of sinus arrhythmia. 2. NC and QRS are within normal limits. 3. (2213) single SVEs, (458) paired, (107) runs of SVT. 4. (22) single VEs, trigeminy noted. 5. Patient diary was submitted symptoms noted, patient triggered event noted. Performing Organization Address City/State/Zipcode Phone Number OTHER OUTSIDE LAB * CARDIAC CATH REPORT (07/06/2018 2:20 PM CLINICAL INFORMATICS EDUCATOR) Procedure Note Earnest, Lloyd B, MD - 07/06/2018 2:20 PM CLINICAL INFORMATICS EDUCATOR [facility] CARDIAC CATHETERIZATION REPORT Page 2 [place] C[place] : 1955 #: [id number] MR #/Billing ID #: [id number] / [id number] DATE: 07/06/2018 LIFE ADVISOR: Lloyd Chaudhari MD DICTATING PROVIDER: Prieto Lyons MD REFERRING PHYSICIAN: CATHETERIZATION REPORT: Interventional Cardiology, Dr. Lloyd Chaudhari. Interventional parachute cushion installer, Prieto Lyons MD. PROCEDURE: 1. Left heart [...] she was brought in to the laboratory machinist today for coronary evaluation and right heart [...] cardiac tamponade. was also notified that Interventional parachute cushion installer will be assisting during the course of this procedure. informed consent was placed in the patient's chart. DESCRIPTION AND FINDINGS OF OPERATIVE PROCEDURE: After consent was obtained, patient was brought in the laboratory machinist in a fasting state where she was prepped and draped in usual sterile fashion. out was obtained to verify patient, as well as site and type of the procedure. mL of 1% lidocaine was administered to the right neck and then with direct ultrasound guidance, we accessed the right internal jugular vein and an 8-British [place]er [place] sheath was inserted. we advanced our 7-[place]er Roll-Ivy catheter. got sequential pressure in the RA, [...] common femoral artery with micropuncture needle and 5-[place] Islander pinnacle sheath was inserted. did the left heart catheterization using a TIG 4.0 5-[place]er catheter. see details of findings below. that, [...] Chaudhari MD BLOOD / DARWIN Job #: [id number] p cc: Performing Organization Address City/[facility] Phone Number OTHER OUTSIDE LAB * O2HGB SAT-VENOUS POC (07/06/2018 10:43 AM CLINICAL INFORMATICS EDUCATOR) O2HGB SAT-Venous POC 77.8 (H) 55 - 71 % MAIN LAB Performing Organization Address [facility] Phone Number MAIN LAB [address] [place] [address] * O2HGB SAT-VENOUS POC (07/06/2018 10:41 AM CLINICAL INFORMATICS EDUCATOR) O2HGB SAT-Venous POC 80.6 (H) 55 - 71 % MAIN LAB Performing Organization Address [facility] Phone Number MAIN LAB [address] [place] [address] * TELEMETRY STRIPS-SCAN (07/06/2018 12:00 AM CLINICAL INFORMATICS EDUCATOR) Narrative Performed At Ordered by an unspecified provider. * PROCEDURE RECORD-SCAN (07/06/2018 12:00 AM CLINICAL INFORMATICS EDUCATOR) Narrative Performed At Ordered by an unspecified [...] of volume overload., Pre-Op 07/06/2018 12:00 PM CLINICAL INFORMATICS EDUCATOR 20 mL/hr sodium chloride 0.9 % infusion Dose/Rate 1,000 mL, Intravenous, at 75 mL/hr, Verify CONTINUOUS, Starting Damaris 07/06/18 at 0815, Until Damaris 07/06/18 at 1621, Admission/Obs/Extended Recovery 75 mL/hr Given - New Bag 07/06/2018 9:00 AM CLINICAL INFORMATICS EDUCATOR temazepam (RESTORIL) capsule 15 mg 15 mg, Oral, AT BEDTIME PRN, Starting Damaris 07/06/18 at 0807, Until Damaris 07/06/18 at 1621, Insomnia, Admission/Obs/Extended Recovery in this encounter
--- OUTSIDE RECORDS SUMMARY | 2018-09-22 12:54 | XMS REPORT | Clinical Summary ---
Author Author [facility] Organization [facility] Address Unknown Phone Unavailable Care Team Providers Care Cash Applications Analyst Name Role Phone Kena Stoner MD PCP [...] in the Health Information Management department at [phone] for further assistance in locating additional records.[facility] Allergies Comments Active Allergy Reactions Severity Noted [...] (coronary artery disease) 05/15/2013 Overview: 10/31/12 [address] [place], [place] - Heart Cath: EF 65%. single [...] for RHC with LVC[place] through [employer] [place]) 06/29/2018 Documentation Cardiology Aubrie Martínez RN Pulmonary [...] AM CDT Pulse 55 07/06/2018 11:41 AM SUPERVISOR WIRE ROPE FABRICATION Temperature 36.8 C (98.2 F) 06/22/2018 9:55 AM SUPERVISOR WIRE ROPE FABRICATION Respiratory Rate 16 07/06/2018 12:45 PM SUPERVISOR WIRE ROPE FABRICATION Oxygen Saturation 96% - Inhaled Oxygen - [...] 07/13/2018 MONITOR CONNECT + SCAN 8:59 AM SUPERVISOR WIRE ROPE FABRICATION CARDIAC CATH REPORT 07/06/2018 2:20 PM SUPERVISOR WIRE ROPE FABRICATION O2HGB SAT-VENOUS POC 07/06/2018 10:43 AM SUPERVISOR WIRE ROPE FABRICATION O2HGB SAT-VENOUS POC 07/06/2018 10:41 AM SUPERVISOR WIRE ROPE FABRICATION CARDIAC CATH REPORT Routine 07/06/2018 Pulmonary HTN (HCC) 8:01 AM SUPERVISOR WIRE ROPE FABRICATION Chest pain, unspecified type TELEMETRY STRIPS-SCAN 07/06/2018 12:00 AM SUPERVISOR WIRE ROPE FABRICATION PROCEDURE RECORD-SCAN 07/06/2018 12:00 AM SUPERVISOR WIRE ROPE FABRICATION CBC Routine 07/05/2018 Pulmonary hypertension 10:42 AM SUPERVISOR WIRE ROPE FABRICATION due to left ventricular diastolic dysfunction (HCC) BASIC METABOLIC PANEL Routine 07/05/2018 Pulmonary hypertension 10:42 AM SUPERVISOR WIRE ROPE FABRICATION due to left ventricular diastolic dysfunction (HCC) ECG-SCAN 07/05/2018 12:00 AM SUPERVISOR WIRE ROPE FABRICATION CARDIAC CATH REPORT Routine 06/28/2018 Pulmonary HTN (HCC) 12:32 PM SUPERVISOR WIRE ROPE FABRICATION Chest pain, unspecified type from Last 3 Months Results * HOLTER WEARABLE ECG MONITOR CONNECT + SCAN (07/13/2018 8:59 AM SUPERVISOR WIRE ROPE FABRICATION) Narrative Performed At OTHER OUTSIDE LAB Indication: Chest Pain Hookup date: 07/06/2018. Scan date: 07/13/2018. Start time: 12:40. The predominant rhythm shows sinus rhythm. Total beats recorded: [id number] Analysis time: 47 hr 49 min Mean [...] with intermittent episodes of sinus arrhythmia. 2. CA and QRS are within normal limits. 3. (2213) single SVEs, (458) paired, (107) runs of SVT. 4. (22) single VEs, trigeminy noted. 5. Patient diary was submitted symptoms noted, patient triggered event noted. Performing Organization Address City/State/Zipcode Phone Number OTHER OUTSIDE LAB * CARDIAC CATH REPORT (07/06/2018 2:20 PM SUPERVISOR WIRE ROPE FABRICATION) Procedure Note Lloyd Chaudhari MD - 07/06/2018 2:20 PM SUPERVISOR WIRE ROPE FABRICATION [facility] CARDIAC CATHETERIZATION REPORT Page 2 [place] Cuevas : 1955 KU#: [id number] KU MR #/Billing ID #: [id number] / [id number] DATE: 07/06/2018 HOME HOSPICE RN: Lloyd Chaudhari MD DICTATING PROVIDER: Prieto Lyons MD REFERRING PHYSICIAN: CATHETERIZATION REPORT: Interventional Cardiology, Dr. Lloyd Chaudhari. Interventional model set artist, Prieto Lyons MD. PROCEDURE: 1. Left heart [...] therefore she was brought in to the laborer turkey farm today for coronary evaluation and right heart [...] cardiac tamponade. was also notified that Interventional model set artist will be assisting during the course of this procedure. informed consent was placed in the patient's chart. DESCRIPTION AND FINDINGS OF OPERATIVE PROCEDURE: After consent was obtained, patient was brought in the laborer turkey farm in a fasting state where she was prepped and draped in usual sterile fashion. out was obtained to verify patient, as well as site and type of the procedure. mL of 1% lidocaine was administered to the right neck and then with direct ultrasound guidance, we accessed the right internal jugular vein and an 8-Vietnamese [place] sheath was inserted. we advanced our 7-Vietnamese [place]-Ivy catheter. got sequential pressure in the RA, [...] common femoral artery with micropuncture needle and 5-Vietnamese pinnacle sheath was inserted. did the left heart catheterization using a TIG 4.0 5-Vietnamese catheter. see details of findings below. that, [...] Chaudhari MD BLOOD / MEDRomario Job #: [id number] cc: Performing Organization Address City/[facility] Phone Number OTHER OUTSIDE LAB * O2HGB SAT-VENOUS POC (07/06/2018 10:43 AM SUPERVISOR WIRE ROPE FABRICATION) Only the most recent of 2 results within the time period is included. O2HGB SAT-Venous POC 77.8 (H) 55 - 71 % MAIN LAB Performing Organization Address [facility] [place] Phone Number MAIN LAB [address] [place] [address] * TELEMETRY STRIPS-SCAN (07/06/2018 12:00 AM SUPERVISOR WIRE ROPE FABRICATION) Narrative Performed At Ordered by an unspecified provider. * PROCEDURE RECORD-SCAN (07/06/2018 12:00 AM SUPERVISOR WIRE ROPE FABRICATION) Narrative Performed At Ordered by an unspecified provider. * CBC (07/05/2018 10:42 AM SUPERVISOR WIRE ROPE FABRICATION) White Blood Cells 6.9 4.5 - 11.0 K/UL [facility] MAIN LAB RBC 4.52 4.0 - 5.0 M/UL [facility] MAIN LAB Hemoglobin 12.4 12.0 - 15.0 GM/DL [facility] MAIN LAB Hematocrit 37.4 36 - 45 % [facility] MAIN LAB MCV 82.7 80 - 100 FL [facility] MAIN LAB MCH 27.4 26 - 34 PG [facility] MAIN LAB MCHC 33.2 32.0 - 36.0 G/DL MAIN LAB RDW 13.8 11 - 15 % K[facility] MAIN LAB Platelet Count 258 150 - 400 K/UL [facility] MAIN LAB MPV 8.4 7 - 11 FL [facility] MAIN LAB Specimen Blood Performing Organization Address [facility] Phone Number MAIN LAB [address] [facility] [place] [address] * BASIC METABOLIC PANEL (07/05/2018 10:42 AM SUPERVISOR WIRE ROPE FABRICATION) Sodium 141 137 - 147 MMOL/L KU [...] Address City/State/Zipcode Phone Number MAIN LAB [address] [place] [address] * ECG-SCAN (07/05/2018 12:00 AM SUPERVISOR WIRE ROPE FABRICATION) Narrative Performed At Ordered by an unspecified provider. from Last 3 Months Insurance Payer Benefit Subscriber ID Type Phone Address Plan / Group [facility] xxxxxxxxxxxx [facility] Advance Directives Patient has advance care planning documents, and code status on file. For more information, please contact: [facility] [address] [place] [address] Date Inactivated Comments Code Status Date Activated [...]
--- OUTSIDE RECORDS SUMMARY | 2018-09-22 12:54 | XMS REPORT | Encounter Summary ---
Author Author [facility] Organization [facility] Address Unknown Phone Unavailable Care Team Providers Care Air Traffic Control Specialist Center Name Role Phone Kena Stoner MD PCP Tata Cohen MD Unavailable Christal Anderson RN Unavailable Unavailable Karina Tobias RN Unavailable Unavailable Marisol Toth RN Unavailable Unavailable Bethany Farris MD Unavailable Alexia Goldsmith Unavailable Unavailable Keshia Reveles RN Unavailable Unavailable Reason for Visit * Reason Comments Dizziness Encounter Details Care Team Description Date Type Department Aubrie Martínez RN Dizziness 08/21/2018 Telephone [facility] [address] [place] [address] [phone] [place] [id number] Social History Date Tobacco Use Types Packs/Day [...] Aubrie Martínez RN - 08/22/2018 4:14 PM WOODWORK TEACHER Reviewed with Dr. Chaudhari. Will discontinue metoprolol [...] she will resume her metoprolol for now. WORK TEACHER * Telephone Encounter - Aubrie Martínez RN - 08/21/2018 9:43 AM WOODWORK TEACHER Pt called today with concerns of dizziness [...] that time, but doesn't exactly remember why. WORK TEACHER in this encounter Plan of Treatment Not on fileas of this encounter Visit Diagnoses Not on filein this encounter
--- OUTSIDE RECORDS SUMMARY | 2018-09-22 12:54 | XMS REPORT | Encounter Summary ---
Author Author [facility] Organization [facility] Address Unknown Phone Unavailable Care Team Providers Care Single Fold Machine Operator Name Role Phone Kena Stoner MD [...] Diagnoses / Procedures Lloyd Chaudhari MD [address] [address] [place] [address] [address] [place] [address] No Auth Needed Cardiology Procedures REQUEST FOR CARDIOLOGY APPOINTMENT Reason for Visit * Reason Comments Cardiac Eval SVT * Consult, Test & Treat (Routine) Referred By Contact Referred To Contact Status Reason Specialty Diagnoses / Procedures Lloyd Chaudhari MD [address] [address] [place] [address] [address] [place] [address] No Auth Needed Cardiology Procedures REQUEST FOR CARDIOLOGY APPOINTMENT Encounter Details Care Team Description Date Type Department Lloyd Chaudhari MD [address] [address] [phone] Jeremy Layne MD [address] [address] [phone] Cardiac Eval (SVT) 09/21/2018 Office Visit Cardiovascular Medicine [address] [address] Social History Date Tobacco Use Types Packs/Day [...] NON-URGENT questions please contact us through your [employer] account. For all medication refills please contact your pharmacy or send a request through [employer]. For all questions that may need to be addressed urgently please call the nursing triage line at [phone] Tuesday - Tuesday 8-5 only. Please leave a detailed message with your name, date of , and reason for your call. To schedule an appointment call [phone]. Please allow 10-15 business days for the [...] seeing your patient India Blackwell in the [facility] as a part of the [facility] office today for initial Electrophysiolgy Consultation regarding her Tachypalpitations. She is typically followed and was referred by my partner Dr. Chaudhari, her primary pneumatic tester mechanic. Ms. Blackwell is an exceptionally pleasant 63 y.o. female, who is accompanied by her equally pleasant spouse, Shane. All data in this note, including the past medical history, was newly collected today. Her PMHx briefly includes: Palpitations; CAD S/P RCA Stent (10/2012); Hypertension; Hyperlipidemia; Pulmonary Hypertension; Morbid Obesity; Arthritis ; Prior SBO -- 10/31/12: [address] [place], [place] - Heart Cath: EF 65%. single [...] sinus with intermittent episodes of sinus arrhythmia. AR and QRS are within normal limits. (2213) [...] Morbid obesity with BMI of 45.0-49.9, adult ([facility]) 06/23/2018 Angina of effort ([facility]) 07/06/2013 CAD (coronary artery disease) 05/15/2013 10/31/12 Via [facility], [place] - Heart Cath: EF 65%. single vessel [...] Essential hypertension Yes Coronary artery disease involving assiniboine and sioux coronary artery of assiniboine and sioux heart without angina pectoris Palpitations Current Medications [...] tablet by mouth daily. OXYGEN-AIR DELIVERY SYSTEMS [facility] Use 2 L as directed. polyethylene glycol [...] Routine Essential hypertension Coronary artery disease involving assiniboine and sioux coronary artery of assiniboine and sioux heart without angina pectoris Palpitations as of this encounter Visit Diagnoses Diagnosis Essential hypertension - Primary Unspecified essential hypertension Coronary artery disease involving assiniboine and sioux coronary artery of assiniboine and sioux heart without angina pectoris Palpitations in this encounter
--- OUTSIDE RECORDS SUMMARY | 2018-09-22 12:55 | XMS REPORT | Encounter Summary ---
Author Author [facility] Organization [facility] Address Unknown Phone Unavailable Care Team Providers Care Landscape Designer Name Role Phone Kena Stoner MD PCP Tata Cohen MD Unavailable Christal Anderson RN Unavailable Unavailable Karina Tobias RN Unavailable Unavailable Marisol Toth RN Unavailable Unavailable Bethany Farris MD Unavailable Alexia Goldsmith Unavailable Unavailable Keshia Reveles RN Unavailable Unavailable Encounter Details Care Team Description Date Type Department Lore Collins, ROUTE DELIVERY DRIVER 4000 [facility] [place] [address] [phone] 07/03/2018 Pre-Admit XDD CARDIOLOGY Orders Only Social [...]
--- OUTSIDE RECORDS SUMMARY | 2018-09-22 12:55 | XMS REPORT | Encounter Summary ---
Author Author [facility] Organization [facility] Address Unknown Phone Unavailable Care Team Providers Care Repair Specialist Name Role Phone Kena Stoner MD PCP Tata Cohen MD Unavailable Christal Anderson RN Unavailable Unavailable Karina Tobias RN Unavailable Unavailable Marisol Toth RN Unavailable Unavailable Bethany Farris MD Unavailable Alexia Goldsmith Unavailable Unavailable Keshia Reveles RN Unavailable Unavailable Reason for Referral * (Routine) Referred By Contact Referred To Contact Status Reason Specialty Diagnoses / Procedures Lloyd Chaudhari MD [address] [place] [id number] New Request Procedures REQUEST FOR CARDIOLOGY APPOINTMENT Reason for Visit * Reason Comments New To Provider H&P for heart cath Encounter Details Care Team Description Date Type Department Lloyd Chaudhari MD [address] [address] New To Provider (H&P for heart cath) 07/05/2018 Office Visit Cardiovascular Medicine [address] [address] Social History Date Tobacco Use [...] Taken Vital Sign Reading 07/05/2018 9:41 AM DEMAND INSPECTOR Blood Pressure 160/70 07/05/2018 9:41 AM DEMAND INSPECTOR Pulse 66 - Temperature - - Respiratory Rate - 07/05/2018 9:41 AM DEMAND INSPECTOR Oxygen Saturation 95% - Inhaled Oxygen - Concentration 07/05/2018 9:41 AM DEMAND INSPECTOR Weight 127 kg (280 lb) 07/05/2018 9:41 AM DEMAND INSPECTOR Height 162.6 cm (5' 4") 07/05/2018 9:41 AM DEMAND INSPECTOR Body Mass Index 48.06 in this encounter Progress Notes * Lloyd Chaudhari MD - 07/05/2018 9:45 AM DEMAND INSPECTOR Date of Service: 07/05/2018 India Blackwell is [...] hypertension due to left ventricular diastolic dysfunction ([facility]) 06/23/2018 Shortness of breath 06/23/2018 Morbid obesity with BMI of 45.0-49.9, adult ([facility]) 06/23/2018 Angina of effort ([facility]) 07/06/2013 CAD (coronary artery disease) 05/15/2013 10/31/12 [place], [place] - Heart Cath: EF 65%. single [...] dysfunction (HCC) Yes Coronary artery disease involving [place] heart with angina pectoris, unspecified vessel or [...] mg by mouth at bedtime as needed. ND INSPECTOR in this encounter Plan of Treatment Order Schedule Name Priority Associated Diagnoses Ordered: 07/05/2018 ECG 12-LEAD Routine Pulmonary hypertension due to left ventricular diastolic dysfunction (HCC) as of this encounter Procedures Comments Procedure Name Priority Date/Time Associated Diagnosis ECG-SCAN 07/05/2018 12:00 AM DEMAND INSPECTOR in this encounter Results * ECG-SCAN (07/05/2018 12:00 AM DEMAND INSPECTOR) Narrative Performed At Ordered by an unspecified provider. in this encounter Visit Diagnoses Diagnosis Pulmonary hypertension due to left ventricular diastolic dysfunction (HCC) - Primary Other chronic pulmonary heart diseases Coronary artery disease involving [place] heart with angina pectoris, unspecified vessel or lesion type (HCC) Essential hypertension Unspecified essential hypertension * Assessment & Plan Note - Lloyd Chaudhari MD - 07/05/2018 10:57 AM DEMAND INSPECTOR Associated Problem(s): Pulmonary hypertension due to left ventricular diastolic dysfunction (HCC) Plan for L/RHC with coronary angiography tomorrow for further evaluation. ND INSPECTOR * Assessment & Plan Note - Lloyd Chaudhari MD - 07/05/2018 10:56 AM DEMAND INSPECTOR Associated Problem(s): Hypertension Not currently well controlled. We will re-evaluate when she is admitted, but I anticipate adding HCTZ to her regimen. Goal BP <130/80. ND INSPECTOR * Assessment & Plan Note - Lloyd Chaudhari MD - 07/05/2018 10:55 AM DEMAND INSPECTOR Associated Problem(s): CAD (coronary artery disease) We will plan to perform angiography to check for obstructive CAD as the etiology of her symptoms. ND INSPECTOR in this encounter
--- OUTSIDE RECORDS SUMMARY | 2018-09-22 12:55 | XMS REPORT | Encounter Summary ---
Author Author [facility] Organization [facility] Address Unknown Phone Unavailable Care Team Providers Care Boiler/Chiller Technician Name Role Phone Kena Stoner MD PCP Tata Cohen MD Unavailable Christal Anderson RN Unavailable Unavailable Karina Tobias RN Unavailable Unavailable Marisol Toth RN Unavailable Unavailable Bethany Farris MD Unavailable Alexia Goldsmith Unavailable Unavailable Keshia Reveles RN Unavailable Unavailable Encounter Details Care Team Description Date Type Department Aubrie Martínez, DORA Pulmonary HTN (HCC) (Primary Dx); Chest pain, unspecified type 06/28/2018 Prep for [facility] Cardiovascular Medicine [address] [address] [place] [address] Social History Date Tobacco Use Types Packs/Day [...]
--- OUTSIDE RECORDS SUMMARY | 2018-09-22 12:55 | XMS REPORT | Encounter Summary ---
Author Author [facility] Organization [facility] Address Unknown Phone Unavailable Care Team Providers Care Marble Coper Name Role Phone Kena Stoner MD PCP Tata Cohen MD Unavailable Christal Anderson RN Unavailable Unavailable Karina Tobias RN Unavailable Unavailable Marisol Toth RN Unavailable Unavailable Bethany Farris MD Unavailable Alexia Goldsmith Unavailable Unavailable Keshia Reveles RN Unavailable Unavailable Reason for Visit * Reason Comments Precertification Approval for RHC with [facility] through [facility] Encounter Details Care Team Description Date Type Department Earnest Deleon RN Precertification (Approval for RHC with [facility] through [facility]) 06/29/2018 Documentation Cardiovascular Medicine [facility] [place] [address] Social History Date Tobacco Use Types Packs/Day [...] - 06/29/2018 10:16 AM DURAN Huffman with [facility], , confirmed benefits and eligibility: Current and active since 05/11/2014, $1000 deductible with required co-insurance of 20% to max OOP $6250, then plan will pay 100% of allowable charges. No pre- certification is required for [facility] with [facility] [id number]. Reference #[id number] RAL OFFICE FRAME WIRER in this encounter Plan of Treatment Not on fileas of this encounter Visit Diagnoses Not on filein this encounter
--- OUTSIDE RECORDS SUMMARY | 2018-09-22 12:55 | XMS REPORT | Encounter Summary ---
Author Author [facility] Organization [facility] Address Unknown Phone Unavailable Care Team Providers Care Billing Rep Name Role Phone Kena Stoner MD PCP Tata Cohen MD Unavailable Christal Anderson RN Unavailable Unavailable Karina Tobias RN Unavailable Unavailable Marisol Toth RN Unavailable Unavailable Bethany Farris MD Unavailable Alexia Goldsmith Unavailable Unavailable Keshia Reveles RN Unavailable Unavailable Encounter Details Care Team Description Date Type Department Lloyd Chaudhari MD 4000 [facility] [place], [place] [id number] 07/05/2018 Hospital Cardiovascular Medicine Encounter [place] [address] [address] [place], [place] [id number] Social History Date Tobacco Use Types Packs/Day [...] CBC Routine 07/05/2018 Pulmonary hypertension 10:42 AM ORACLE ADF CONSULTANT due to left ventricular diastolic dysfunction (HCC) BASIC METABOLIC PANEL Routine 07/05/2018 Pulmonary hypertension 10:42 AM ORACLE ADF CONSULTANT due to left ventricular diastolic dysfunction (HCC) in this encounter Results * CBC (07/05/2018 10:42 AM ORACLE ADF CONSULTANT) White Blood Cells 6.9 4.5 - 11.0 [...] Address City/State/Zipcode Phone Number [facility] [address] [place] [address] * BASIC METABOLIC PANEL (07/05/2018 10:42 AM ORACLE ADF CONSULTANT) Sodium 141 137 - 147 MMOL/L [facility] [...] Address City/State/Zipcode Phone Number [facility] [address] [place] [address] in this encounter Visit Diagnoses Diagnosis Pulmonary hypertension due to left ventricular diastolic dysfunction (HCC) Other chronic pulmonary heart diseases in this encounter
--- OUTSIDE RECORDS SUMMARY | 2018-09-22 12:57 | XMS REPORT | Continuity of Care Document ---
Author Author [facility] Organization [facility] Address Unknown Phone Unavailable Allergies Active Description Code Type Severity Reaction Onset Reported/Identified Relationship to Patient Clinical Status Yes Fish Containing Products [id number] Drug Allergy Unknown N/A 08/15/2014 Medications There [...] DISORDER 11/01/2012 Ot 414.01 CORONARY ATHEROSCLEROSIS OF [place] CORON 11/01/2012 Ot 414.4 CORONARY ATHEROSCLEROSIS DUE [...] 08/15/2014 Ot 786.50 08/15/2014 BAIMA OC L REINFORCING STEEL PLACER Ot 140.0 08/15/2014 BAIMA OC L REINFORCING STEEL PLACER Ot 401.9 08/15/2014 BAIMA OC L REINFORCING STEEL PLACER Ot 786.50 08/15/2014 BAIMA OC L REINFORCING STEEL PLACER Ot V12.29 08/15/2014 SHAILA LYNCH, PAOLA Vicente Ot V76.12 08/18/2014 JIMMIE BROOKS MD Ot 272.4 HYPERLIPIDEMIA NEC/NOS 08/18/2014 JIMMIE BROOKS MD Ot 273.4 [id number] DEFICIENCY 08/18/2014 JIMMIE BROOKS MD Ot 276.8 HYPOPOTASSEMIA 08/18/2014 JIMMIE BROOKS MD Ot 277.7 DYSMETABOLIC SYNDROME X 08/18/2014 JIMMIE BROOKS MD Ot 401.9 HYPERTENSION NOS 08/18/2014 JIMMIE BROOKS MD Ot 414.01 CORONARY ATHEROSCLEROSIS OF [place] CORON 08/18/2014 JIMMIE BROOKS MD Ot 493.90 [...] 553.3 07/16/2015 Ot 786.50 07/16/2015 OC NIÑO REINFORCING STEEL PLACER Ot 140.0 07/16/2015 BAIOC BENSON L REINFORCING STEEL PLACER Ot 401.9 07/16/2015 BAIMAOC L REINFORCING STEEL PLACER Ot 786.50 07/16/2015 BAIMAOC L REINFORCING STEEL PLACER Ot V12.29 07/16/2015 SHAILA LYNCH, PAOLA Vicente [...] 786.50 CHEST PAIN NOS 06/05/2016 OC NIÑO REINFORCING STEEL PLACER Ot 140.0 MAL DANIEL UPPER VERMILION 06/05/2016 OC NIÑO REINFORCING STEEL PLACER Ot 401.9 HYPERTENSION NOS 06/05/2016 BAIOC BENSON L REINFORCING STEEL PLACER Ot 786.50 CHEST PAIN NOS 06/05/2016 OC NIÑO REINFORCING STEEL PLACER Ot V12.29 PERSONAL HX OF OT ENDOCRINE, [...] MD Ot I25.10 ATHSCL HEART DISEASE OF [place] CORONARY 06/07/2016 JIMMIE BROOKS MD Ot J45.909 [...] CHEST PAIN NOS 11/19/2016 BAIMA, OC L REINFORCING STEEL PLACER Ot 140.0 MAL DANIEL UPPER VERMILION 11/19/2016 BAIMA, OC L REINFORCING STEEL PLACER Ot 401.9 HYPERTENSION NOS 11/19/2016 BAIMA, OC L REINFORCING STEEL PLACER Ot 786.50 CHEST PAIN NOS 11/19/2016 BAIMA, OC L REINFORCING STEEL PLACER Ot V12.29 PERSONAL HX OF OT ENDOCRINE, [...] Status Pt. Type Provider Facility Loc./Unit Complaint [id number] 07/18/2018 00:11:00 07/18/2018 23:59:59 CLS Preadmit KENA STONER DO [facility] CARD A FIB ON SLEEP STUDY ,PALPITATIONS [id number] 05/16/2018 11:23:00 07/17/2018 00:01:00 DIS Outpatient KENA STONER DO S [facility] CARD A FIB ON SLEEP STUDY,PALPITATIONS [id number] 08/01/2017 12:31:00 08/01/2017 23:59:59 CLS Outpatient MARGIE FRASER USED CAR SALES MANAGER [facility] RAD DFS [id number] 07/27/2017 09:45:00 07/27/2017 23:59:59 CLS Preadmit MARGIE FRASER USED CAR SALES MANAGER [facility] RAD BREAST MASS ON RIGHT SIDE [id number] 02/24/2017 12:27:00 02/24/2017 23:59:59 CLS Outpatient MARCI LUIS USED CAR SALES MANAGER [facility] RAD S20.01XA [id number] 12/23/2016 09:54:00 12/23/2016 23:59:59 CLS Outpatient KENA STONER DO [facility] RAD SCREENING Z12.31 [id number] 06/05/2016 00:52:00 06/07/2016 15:20:00 DIS Inpatient JIMMIE BROOKS MD [facility] 4TH SMALL BOWEL OBSTRUCTION [id number] 07/16/2015 07:50:00 07/16/2015 23:59:59 CLS Outpatient KENA STONER DO [facility] RAD LEFT HIP PAIN, LOW BACK PAIN [id number] 08/15/2014 05:15:00 08/18/2014 13:48:00 DIS Inpatient JIMMIE BROOKS MD [facility] SURGICAL SMALL BOWEL OBSTRUCTION,HYPOKALEMIA [id number] 09/07/2013 10:20:00 09/07/2013 23:59:59 CLS Outpatient PAOLA LINTON MD [facility] RAD SCREENING [id number] 06/15/2013 12:16:00 07/09/2013 13:06:00 DIS Outpatient ANNALISA KANG MD [facility] CR STENT [id number] 05/10/2013 07:38:00 05/10/2013 23:59:59 CLS Outpatient OC NIÑO Francisco ACUÑAP [facility] RAD CP,CAD,HLP,HTN [id number] 04/18/2013 15:07:00 04/18/2013 16:10:00 DIS Emergency HEIDI GODINEZ DO [facility] ER NECK/L SHOULDER PAIN [id number] 01/24/2013 12:17:00 01/29/2013 12:26:00 DIS Outpatient DONITA LYNCH FACC, TJ RICHTER CCDS [facility] CR STENT [id number] 09/22/2018 12:34:00 ACT Inpatient KENA STONER DO S [facility] 4TH SMALL BOWEL OBSTRUCTION [id number] 02/22/2018 19:54:00 Document Registration [id number] 09/09/2014 23:20:00 Document Registration [id number] 10/31/2012 12:34:00 Document Registration [id number] 10/12/2012 08:10:00 Document Registration [id number] 10/10/2012 07:39:00 Document Registration [id number] 08/08/2012 08:32:00 Document Registration [id number] 08/03/2012 07:15:00 Document Registration [id number] 08/02/2012 08:55:00 Document Registration [id number] 07/25/2012 07:49:00 Document Registration [id number] 07/21/2012 22:00:00 Document Registration [id number] 04/11/2012 09:41:00 Document Registration [id number] 09/28/2011 08:56:00 Document Registration [id number] 06/30/2011 08:05:00 Document Registration [id number] 06/21/2011 10:04:00 Document Registration [id number] 04/18/2011 15:48:00 Document Registration [id number] 05/15/2010 13:30:00 Document Registration [id number] 02/24/2009 11:21:00 Document Registration [id number] 02/24/2009 11:12:00 Document Registration 02/04/16 04/06/2018 13:21:44 04/06/2018 23:59:59 [facility] Outpatient Kena Stoner [facility] 08/17/2014 17:21:45 ACT Document Registration
[2018-09-22] MEDS ORDERED: ONDANSETRON 4 MG/2 ML (SDV) Z0FRAN ONE (13:10)
--- NOTE | 2018-09-22 13:24 | CONSULTATION REPORT ---
DATE OF SERVICE: HISTORY OF PRESENT ILLNESS: The patient is a 63-year-old female who we have seen before in the past. She was admitted in May 2016 for abdominal pain, distention as well as nausea and vomiting. She was found to have a partial small-bowel obstruction and medically managed and she was able to regain bowel function. She presents today with similar symptoms. She reports that she developed abdominal pain and distention and felt nausea. She also did have an episode of vomiting early this morning. Workup was consistent again with a partial small-bowel obstruction. PAST MEDICAL HISTORY: Alpha-1 antitrypsin deficiency, coronary artery disease, hypercholesterolemia, hypertension, anxiety, depression. PAST SURGICAL HISTORY: Uterine artery embolization and myomectomy. Small bowel resection, appendectomy, cardiac catheterization and stent placement x2. ALLERGIES: No known drug allergies. MEDICATIONS: Albuterol 2 puffs t.i.d. p.r.n., amlodipine 5 mg b.i.d., aspirin 81 mg daily, atorvastatin 40 mg daily, furosemide 40 mg daily, losartan 100 mg daily, meloxicam 15 mg daily, MiraLax 17 grams daily, trazodone 150 mg daily. SOCIAL HISTORY: Negative smoke, negative alcohol. FAMILY HISTORY: Mother and father, hypertension. REVIEW OF SYSTEMS: A well-nourished female, currently in no acute distress. She is not experiencing any shortness of breath or difficulty breathing. She did develop abdominal distention, pain as well as an episode of nausea and vomiting this morning. She reports her last bowel function was yesterday. No red blood per rectum, no dark tarry stools. No fever, chills. No recent inadvertent weight loss. All other review of systems negative. PHYSICAL EXAMINATION: VITAL SIGNS: Temperature 98.3, blood pressure 208/76, pulse of 65, respirations 18, pulse ox 92% on room air. CHEST: Clear. Good breath sounds bilaterally. HEART: Regular. No murmurs. HEENT: No scleral icterus. NECK: No cervical lymphadenopathy. ABDOMEN: Slightly distended with some mild discomfort, which is more diffuse. There is no abdominal hernias and no peritoneal signs. SKIN: Warm and dry. ASSESSMENT AND PLAN: A 63-year-old female with partial small-bowel obstruction from previous abdominal surgery and adhesions. She has had this etiology before which was medically managed and she had done well for approximately 3 years. She would like to again proceed with conservative management. We will proceed with NG tube decompression as well as IV fluids and ambulation. Hopefully, she will gain bowel function and we will remove the NG tube and start clear liquid diet and advance as tolerated. Job ID: [id number] DocumentID: [id number] Dictated Date: 09/22/2018 13:03:24 Repossession Agent Date: 09/22/2018 13:23:32 Dictated By: JIMMIE BROOKS MD
[2018-09-22] MEDS ORDERED: NS IV 1000 ML 1,000 ML ONE (13:28)
[2018-09-22] MEDS ORDERED: POLY238P32 PO (13:37)
[2018-09-22] MEDS ORDERED: TRAZ150T72 PO (13:37)
[2018-09-22] MEDS ORDERED: ONDA4TAB11 PO (13:37)
[2018-09-22] MEDS ORDERED: ISOS30TA3 PO (13:37)
[2018-09-22] MEDS ORDERED: METO-387 PO (13:37)
--- NOTE | 2018-09-22 13:41 | NUR ---
SANTI GREENE admitted to room 420-1, with an admitting diagnosis of bowel obstraction, on 09/22/18 from ED via wheel chair, accompanied by staff.SANTI GREENE introduced to surroundings, call light, bed controls, phone, TV, temperature control, lights, meal times, smoking policy, visitor policy, side rail policy, bathrooms and showers. Patient Rights given to patient in the handbook. SANTI GREENE verbalizes understanding that [facility] is not responsible for the loss or damage to any personal effects or valuables that are kept in the patients posession during their hospitalization. The following Patient Care Plans and discharge were discussed with the . SANTI GREENE verbalizes understanding of Interdisciplinary Patient Education.
[2018-09-22] MEDS ORDERED: POTA99TA21 PO (13:42)
[2018-09-22] MEDS ORDERED: DOCU-143 PO (13:42)
[2018-09-22] MEDS ORDERED: FERR-84 PO (13:42)
[2018-09-22] MEDS ORDERED: ASPI-983 PO (13:42)
[2018-09-22] MEDS ORDERED: DIPH25CA79 PO (13:42)
[2018-09-22] MEDS ORDERED: fentaNYL INJECTION 100 MCG/2 ML AMP IVP PRN (13:45)
--- NOTE | 2018-09-22 13:46 | NUR ---
PATIENT HAD A DETAILED LIST OF MEDICATIONS, SEE CHART FOR DETAILS. I COMPARED THAT LIST WITH THE EXT MED HX. HER FUROSEMIDE WAS FILLED 40MG BID HOWEVER SHE STATES HER TECHNICAL WRITER AND EDITOR HAS DECREASED IT TO 1 TAB DAILY. SHE TAKES THE FOLLOWING OTC: ASPIRIN 81MG DAILY BENADRYL 50MG HS COLACE 200MG DAILY IRON DAILY POTASSIUM DAILY
[2018-09-22 13:52] VITALS: BP 194/79
[2018-09-22] MEDS: NS IV 1000 ML 1,000 ML IV SCH (14:20)
[2018-09-22] MEDS ORDERED: LORazepam INJ 2 MG/ML (ATIVAN) VIAL IVP PRN (15:45)
[2018-09-22 16:00] VITALS: BP 174/90
--- NOTE | 2018-09-22 17:46 | History & Physical-Hospitalist ---
History of Present Illness HPI/Chief Complaint CC: SBO HPI: This is a 63yoWF clinic patient of Dr Stoner who has a h/o SBO x 3 in the past w/previous SB resection several years ago who presents to the ER with abdominal pain and N/V and was found to have another SBO so Dr Heard was consulted and recommended IVF and anti-emetics and did not require NGT and will closely monitor and be on standby for surgical resection. Currently she has no chest pain and no nausea. Source: patient Exam Limitations: no limitations Date Seen 09/22/18 Time Seen by a Provider: 17:30 Attending Physician Kena Stoner DO PCP Kena Stoner DO Referring Physician Date of Admission Sep 22, 2018 at 12:34 Home Medications & Allergies Home Medications Reviewed patient Home Medication Reconciliation performed by pharmacy medication reconciliations data collection technician and/or nursing. Patients Allergies have been reviewed. 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) Alcohol Use: Denies Use Recreational Drug Use: No Smoking Status: Never a Smoker Physical Abuse Screen: No Sexual Abuse: No Recent Foreign Travel: No Contact w/other who traveled: No Recent Hopitalizations: No Recent Infectious Disease Expo: No Immunizations Up To Date Tetanus Booster (TDap): Less than 5yrs Date of Pneumonia Vaccine: Dec 09, 2013 Date of Influenza Vaccine: Apr 07, 2018 Seasonal Allergies Seasonal Allergies: No Past Medical History Surgeries: Abdominal, Appendectomy, Coronary Stent alpha 1-antitrypsin def Currently Using CPAP: No Currently Using BIPAP: No Cardiac: Coronary Artery Disease, High Cholesterol, Hypertension Reproductive: Yes (UTERINE FIBROID TUMORS, UTERINE ARTERY EMBOLIZATION AND MYOMECTOMY) Sexually Transmitted Disease: No Menopausal Gastrointestinal: Obstructive Bowel, Hemorrhoids Musculoskeletal: Arthritis HEENT: Cataract Loss of Vision: Denies Hearing Impairment: Denies Psychosocial: Anxiety, Depression History of Blood Disorders: No Adverse Reaction to Blood [place]: No Family History Cataracts 19 FATHER, Onset:Unknown Dementia paternal grandmother, Onset:Unknown Drug abuse SON, Onset:Unknown FH: heart disease 19 MOTHER, Onset:Unknown FH: hepatitis SON, Onset:Unknown (hepatitis A) Hypertension 19 FATHER, Onset:Unknown 19 MOTHER Review of Systems Constitutional: see HPI EENTM: no symptoms reported Respiratory: no symptoms reported Cardiovascular: no symptoms reported Gastrointestinal: abdominal pain, loss of appetite, nausea, vomiting Musculoskeletal: no symptoms reported Skin: no symptoms reported Psychiatric/Neurological: No Symptoms Reported All Other Systems Reviewed Negative Unless Noted: Yes Physical Exam Physical Exam Vital Signs Vital Signs - First Documented 09/22/18 09/22/18 09:18 13:55 Temp 98.3 Pulse 65 Resp 18 B/P (MAP) 208/76 (120) Pulse Ox 92 O2 Delivery Nasal Cannula O2 Flow Rate 2.00 Capillary Refill : Less Than 3 Seconds Height, Weight, BMI Height: 5'4.00" Weight: 270lbs. 0.0oz. 122.435591pt; 40.8 BMI Method:Stated General Appearance: No Apparent Distress, WD/WN, Chronically ill, Obese Eyes: Right Eye Normal Inspection, Right Eye PERRL HEENT: PERRL/EOMI, Normal ENT Inspection, Pharynx Normal, Moist Mucous Membranes Neck: Full Range of Motion, Normal Inspection, Non Tender Respiratory: Chest Non Tender, Lungs Clear, Normal Breath Sounds, No Accessory Muscle Use, No Respiratory Distress Cardiovascular: Regular Rate, Rhythm, No Edema, No Gallop, No JVD, No Murmur, Normal Peripheral Pulses Gastrointestinal: Normal Bowel Sounds, No Organomegaly, No Pulsatile Mass, Abnormal Bowel Sounds, Distended, Tenderness Back: Normal Inspection, No CVA Tenderness, No Vertebral Tenderness Extremity: Normal Capillary Refill, Normal Inspection, Normal Range of Motion, Non Tender, No Calf Tenderness, No Pedal Edema Neurologic/Psychiatric: Alert, Oriented x3, No Motor/Sensory Deficits, Normal Mood/Affect Skin: Normal Color, Warm/Dry Lymphatic: No Adenopathy Results Results/Procedures Labs Laboratory Tests 09/22/18 09:32 Patient resulted labs reviewed. Assessment/Plan Admission Diagnosis SBO Plan: IVF Pain meds Antiemetics Admission Status: Observation Diagnosis/Problems Diagnosis/Problems (1) Small bowel obstruction Status: Acute (2) Uszjn-8-cfnymariecu deficiency Status: Chronic (3) CAD (coronary artery disease) Status: Chronic Qualifiers: Coronary Disease-Associated Artery/Lesion type: [place] artery [place] vs. transplanted heart: [place] heart Associated angina: without angina Qualified Codes: I25.10 - Atherosclerotic heart disease of [place] coronary artery without angina pectoris (4) Stented coronary artery Status: Chronic (5) H/O resection of small bowel Status: Chronic (6) Intractable nausea and vomiting Status: Acute (7) Hypokalemia Status: Acute Clinical Quality Measures DVT/VTE Risk/Contraindication: Risk Factor Score Per Nursin RFS Level Per Nursing on Admit: 2=Moderate NANCY DOWNEY DO Sep 22, 2018 17:46
[2018-09-22] MEDS: ONDANSETRON 4 MG/2 ML (SDV) Z0FRAN IVP PRN (19:55)
[2018-09-22 20:00] VITALS: BP 192/78
[2018-09-22] MEDS: amLODIPine 5 MG (NORVASC) TAB PO SCH (21:00)
[2018-09-22] MEDS ORDERED: traZODone 150 MG (DESYREL) TABLET PO SCH (21:00)
[2018-09-23] VITALS (7 sets, daily range): BP systolic 147–178; BP diastolic 64–73
[2018-09-23] MEDS: NS IV 1000 ML 1,000 ML IV SCH ×2 (00:29→10:01)
[2018-09-23] MEDS: ONDANSETRON 4 MG/2 ML (SDV) Z0FRAN IVP PRN (01:09)
[2018-09-23] MEDS: amLODIPine 5 MG (NORVASC) TAB PO SCH (09:36)
--- NOTE | 2018-09-23 09:50 | NUR ---
Pt states that she has had 2 large bm's, pt calls one, "explosive". PCT had reported pt wanted Zofran for nausea, but, pt declining med now, states is better since bowels have moved.
--- NOTE | 2018-09-23 11:43 | Progress Note (SOAP) ---
Subjective Date Seen by a Provider: Sep 23, 2018 Time Seen by a Provider: 11:20 Subjective/Events-last exam Patient seen with Dr. Heard. Patient reports doing well today. She did have 2 solid BMs as well as a diarrhea stool. She is passing flatus. No N/V. No Fever /chills. Denies any abdominal pain at this time. Objective Exam Vital Signs Date Time Temp Pulse Resp B/P (MAP) Pulse Ox O2 Delivery O2 Flow Rate FiO2 09/23/18 08:55 98 Room Air 09/23/18 08:00 98.7 60 18 178/64 (102) 94 Room Air 09/23/18 04:00 98.3 63 18 156/71 (99) 95 Room Air 09/23/18 00:00 99.8 69 16 147/73 (97) 93 Room Air 09/22/18 20:00 Nasal Cannula 2.00 09/22/18 20:00 98.8 65 20 192/78 (116) 95 Nasal Cannula 2.00 09/22/18 20:00 95 Nasal Cannula 2.00 09/22/18 16:00 98.4 66 18 174/90 (118) 98 Nasal Cannula 2.00 09/22/18 13:55 Nasal Cannula 2.00 09/22/18 13:52 98.3 65 20 194/79 98 09/22/18 12:57 65 20 165/63 (97) 98 I & O 09/23/18 07:00 Intake Total 2000 ml Balance 2000 ml Capillary Refill : Less Than 3 Seconds General Appearance: No Apparent Distress, WD/WN Neck: Full Range of Motion, Normal Inspection, Non Tender, Supple Respiratory: Lungs Clear, Normal Breath Sounds, No Accessory Muscle Use, No Respiratory Distress Cardiovascular: Regular Rate, Rhythm, No Edema Gastrointestinal: normal bowel sounds, non tender, soft Extremity: Normal Capillary Refill, Normal Inspection, Normal Range of Motion Neurologic/Psychiatric: Alert, Oriented x3 Skin: Normal Color, Warm/Dry Assessment/Plan Assessment/Plan Assess & Plan/Chief Complaint A 63 year old female with partial small-bowel obstruction from previous abdominal surgery and adhesions. VSS. Patient is having bowel function and will start clear liquid diet and advance as tolerated. If patient continues with bowel function and tolerating diet, we will DC home soon. Clinical Quality Measures DVT/VTE Risk/Contraindication: Risk Factor Score Per Nursin RFS Level Per Nursing on Admit: 2=Moderate KAY VALENCIA APRN Sep 23, 2018 11:43
--- NOTE | 2018-09-23 11:58 | Discharge Inst-Surgical ---
D/C Lap Instructions-KIDO Follow Up Appt PRN Activity as tolerated No driving for 24 hours No driving while on pain medications High Fiber Diet 25g or more per day Avoid Alcohol, Caffeine, Spicy [place] and Acid foods. Drink 64 fluid oz or more of fluids per day. Symptoms to Report: Fever over 101 degree F, Nausea/Vomiting If any problems/questions: Contact your physician or go to Emergency Room KAY VALENCIA APRN Sep 23, 2018 11:58
--- NOTE | 2018-09-23 12:47 | Progress Note-Hospitalist ---
Subjective HPI/CC On Admission Date Seen by Provider: Sep 23, 2018 Time Seen by Provider: 12:30 Subjective/Events-last exam Patient has had 2 BM's and passing flatus Dr Heard assessed her to be ready to advance diet and if all tolerated will DC today No pain is reported No new issues Review of Systems General: Fatigue Objective Exam Vital Signs Vital Signs Date Time Temp Pulse Resp B/P (MAP) Pulse Ox O2 Delivery O2 Flow Rate FiO2 09/23/18 12:00 98.2 58 18 172/73 (106) 97 Room Air 09/22/18 20:00 2.00 Capillary Refill : Less Than 3 Seconds General Appearance: No Apparent Distress, WD/WN Neck: Full Range of Motion, Normal Inspection, Non Tender, Supple Respiratory: Lungs Clear, Normal Breath Sounds, No Accessory Muscle Use, No Respiratory Distress Cardiovascular: Regular Rate, Rhythm, No Edema Gastrointestinal: Normal Bowel Sounds, No Organomegaly, No Pulsatile Mass, Non Tender, Soft Extremity: Normal Capillary Refill, Normal Inspection, Normal Range of Motion Neurologic/Psychiatric: Alert, Oriented x3 Skin: Normal Color, Warm/Dry Results/Procedures Lab Patient resulted labs reviewed. Assessment/Plan Assessment and Plan Assess & Plan/Chief Complaint SBO now resolved Plan: DC home Diagnosis/Problems Diagnosis/Problems (1) Small bowel obstruction Status: Resolved Resolution Date/Time: 09/23/18 @ 13:19 (2) Intractable nausea and vomiting Status: Resolved Qualifiers: Vomiting type: unspecified Qualified Codes: R11.2 - Nausea with vomiting, unspecified (3) CAD (coronary artery disease) Status: Chronic Qualifiers: Coronary Disease-Associated Artery/Lesion type: [place] artery [place] vs. 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
== END 2018-09-23 17:45 | disposition home or self-care (01) ==
LOC: EDUNIT# 08:49 → ER 08:51 → 4TH 12:34
PROVIDERS: ADMIT Internal Medicine; ATTEND Family Medicine
DX: K56.609 Unspecified intestinal obstruction, unspecified as to partial versus complete obstruction (principal); R11.2 Nausea with vomiting, unspecified; I25.10 Atherosclerotic heart disease of native coronary artery without angina pectoris; E88.01 Alpha-1-antitrypsin deficiency; Z95.5 Presence of coronary angioplasty implant and graft; E78.00 Pure hypercholesterolemia, unspecified; I10 Essential (primary) hypertension; M19.91 Primary osteoarthritis, unspecified site; F41.9 Anxiety disorder, unspecified; F32.9 Major depressive disorder, single episode, unspecified; Z79.899 Other long term (current) drug therapy; Z79.82 Long term (current) use of aspirin
CPT/HCPCS: 36415; 74018; 74177; 80053; 81000; 85025; 96374; 96375; G0378

== ENCOUNTER → 2018-12-11 | Outpatient (CLI) | payer BC ==
[~2018-12-11] MED LIST changes: +ASPI-983 PO; +DIPH25CA79 PO; +DOCU-143 PO; +FERR-84 PO; +ISOS30TA3 PO; +METO-387 PO; +ONDA4TAB11 PO; +POLY238P32 PO; +POTA99TA21 PO; +TRAZ150T72 PO
--- NOTE | 2018-12-11 12:35 | Diagnostic Imaging Report ---
INDICATION: Routine screening. COMPARISON: Comparison is made with prior mammograms from 12/23/2016 and 09/07/2013. TECHNIQUE: 2-D and 3-D bilateral screening mammography was performed with Computer Aided Detection (CAD) system. FINDINGS: Scattered fibroglandular densities are identified bilaterally. The parenchymal pattern is stable. No mass or malignant-appearing microcalcifications are seen. Scattered benign calcifications are noted. Axillae are unremarkable. IMPRESSION: No mammographic features suspicious for malignancy are identified. ACR BI-RADS Category 2: Benign findings. Result letter will be mailed to the patient. Note: At least 10% of breast cancer is not imaged by mammography. Dictated by: Dictated on workstation # [id number]
== END ==
LOC: RAD 07:45
PROVIDERS: ATTEND Family Medicine
DX: Z12.31 Encounter for screening mammogram for malignant neoplasm of breast (principal)
CPT/HCPCS: 77067

== ENCOUNTER → 2019-08-22 | Outpatient (CLI) | payer BC ==
[~2019-08-22] MED LIST changes: -METO-387 PO
[2019-08-22 12:01] LABS: CREATINE KINASE 61 U/L (29-168)
== END ==
LOC: CARD 11:25
PROVIDERS: ATTEND Family Medicine
DX: I10 Essential (primary) hypertension (principal); R53.83 Other fatigue; M79.603 Pain in arm, unspecified
CPT/HCPCS: 36415; 82550; 84484; 93005

== ENCOUNTER → 2019-09-19 | Outpatient (CLI) | payer BC ==
--- NOTE | 2019-09-19 13:59 | Diagnostic Imaging Report ---
INDICATION: Palpable lump right breast. Correlation is made with prior mammogram 12/11/2018 and 08/01/2017 as well as 12/23/2016. A unilateral right 2-D and 3-D diagnostic mammography was performed with CAD. A BB marker is placed at the area of palpable abnormality in the retroareolar aspect of the right breast slightly outer and inferior. This is very similar to the location on prior imaging from 08/01/2017. Scattered fibroglandular densities in the right breast are noted. There are benign calcifications. The parenchymal pattern appears stable. No discrete mass is detected. No malignant appearing microcalcifications are identified. IMPRESSION: BI-RADS 0. Stable right mammogram. Even so, sonographic interrogation of the area of palpable abnormality is recommended and will be performed today. ACR BI-RADS Category 0: Incomplete. (Needs additional imaging evaluation). Result letter will be mailed to the patient. Note: At least 10% of breast cancer is not imaged by mammography. Dictated by: Dictated on workstation # [id number]
--- NOTE | 2019-09-19 17:02 | Diagnostic Imaging Report ---
INDICATION: Palpable lump in the outer right breast. COMPARISON: Correlation is made with the diagnostic mammogram from earlier this same day. TECHNIQUE: Sonographic interrogation of the lump in the outer right breast was performed. FINDINGS: There is a hypoechoic nodule at this location. This corresponds to the 7 o'clock location 3 cm from the nipple. The hypoechoic nodule measures 8 mm x 6 mm x 10 mm. There appears to be some posterior acoustic shadowing. There is also some internal vascularity. The hematoma noted at this location on the prior ultrasound from 08/01/2017 is no longer visualized. IMPRESSION: There is a hypoechoic nodule at the 7 o'clock location of the right breast 3 cm from the nipple. A small right breast neoplasm cannot be entirely excluded. Tissue sampling is recommended. This would be amenable to ultrasound-guided core biopsy. ACR BI-RADS Category 4: Suspicious abnormality. Dictated by: Dictated on workstation # [id number]
== END ==
LOC: RAD 12:47
PROVIDERS: ATTEND Family Medicine
DX: N63.13 Unspecified lump in the right breast, lower outer quadrant (principal)

== ENCOUNTER 2021-02-16 12:12 | Outpatient (CLI) | payer MEDICARE ==
[~2021-02-16] VITALS: Ht 162.6 cm; Wt 110.5 kg
[~2021-02-16 12:12] MED LIST changes: +AMLO-250 PO; -AMLO5TAB9 PO; +ASPI-1238 PO; -ASPI-983 PO; -ISOS30TA3 PO; +ISOS30TA82 PO
[2021-02-16] MEDS ORDERED: VALS1TAB79 PO (13:03)
== END 2021-02-16 13:15 | disposition home or self-care (01) ==
LOC: PREOP 12:12
PROVIDERS: ATTEND Surgery
DX: Z01.818 Encounter for other preprocedural examination (principal)

== ENCOUNTER 2021-02-18 12:35 | Day surgery (SDC) | payer MEDICARE ==
[2021-02-18] VITALS (7 sets, daily range): BP systolic 176–188; BP diastolic 74–98
[~2021-02-18] VITALS: Ht 162.6 cm; Wt 110.5 kg
[~2021-02-18 12:35] MED LIST changes: +VALS1TAB79 PO
--- NOTE | 2021-02-18 12:59 | Progress Note-Pre Operative ---
Pre-Operative Progress Note H&P Reviewed The H&P was reviewed, patient examined and no changes noted. Date Seen by Provider: Feb 18, 2021 Time Seen by Provider: 12:30 Date H&P Reviewed: Feb 18, 2021 Time H&P Reviewed: 12:30 Pre-Operative Diagnosis: rectal mass, rectal bleed JIMMIE BROOKS MD Feb 18, 2021 12:59
[2021-02-18] MEDS ORDERED: ONDANSETRON 4 MG (ZOFRAN) ORAL DISSOLVE TAB PO PRN (13:00)
[2021-02-18] MEDS ORDERED: ONDANSETRON 4 MG/2 ML (SDV) Z0FRAN IVP PRN (13:00)
--- NOTE | 2021-02-18 13:01 | Discharge Inst-Surgical ---
D/C Lap Instructions-CECILIA Follow Up Activity as tolerated High Fiber Diet 25g or more per day Avoid Alcohol, Caffeine, Spicy [place] and Acid foods. Drink 64 fluid oz or more of fluids per day. Symptoms to Report: Fever over 101 degree F, Nausea/Vomiting If any problems/questions: Contact your physician or go to Emergency Room JIMMIE BROOKS MD Feb 18, 2021 13:01
[2021-02-18] MEDS ORDERED: LACTATED RINGERS 1,000 ML IV STA (14:01)
[2021-02-18] MEDS ORDERED: LIDOCAINE JELLY 2% 6 ML SYRINGE MM PRN (14:15)
[2021-02-18] MEDS ORDERED: PROPOFOL INJECTION 50 ML IV ONE (14:15)
[2021-02-18] MEDS ORDERED: MIDAZOLAM 2 MG/2 ML (VERSED) VIAL ONE (14:16)
--- NOTE | 2021-02-18 15:03 | Progress Note-Post Operative ---
Post-Operative Progess Note Surgeon (s)/Molder Hand (s) Surgeon JIMMIE BROOKS MD Molder Hand: none Pre-Operative Diagnosis rectal mass, rectal bleed Post-Operative Diagnosis chronic stage 2 ext and int hemorrhoids, pancolitis. Procedure & Operative Findings Date of Procedure 02/18/21 Procedure Performed/Findings colonoscopy with bx. Anesthesia Type mac Estimated Blood Loss Estimated blood loss (mL): minimal Specimens/Packing Specimens Removed cecum, transverse, sigmoid, rectum JIMMIE BROOKS MD Feb 18, 2021 15:03
--- NOTE | 2021-02-19 01:58 | OPERATIVE REPORT ---
DATE OF SERVICE: 02/18/2021 ATTENDING PRIMARY CARE PHYSICIAN: Kena Stoner DO PREOPERATIVE DIAGNOSES: Rectal bleed, abdominal pain, constipation. POSTOPERATIVE DIAGNOSIS: Pancolitis encompassing all segments of the colon as well as the rectum. PROCEDURE: Colonoscopy with biopsy. SURGEON: Jimmie Brooks MD ANESTHESIA: Monitored anesthesia care. ESTIMATED BLOOD LOSS: Minimal. FINDINGS: Same as postoperative diagnosis. DISPOSITION: The patient tolerated the procedure well. INDICATIONS: The patient is a 66-year-old female known to us. In 08/2014, she developed abdominal pain and distention as well as nausea and vomiting and found to have a small-bowel obstruction, underwent a laparoscopic small bowel resection due to abdominal wall adhesions. She was seen again in 09/2018 and medically managed, which did resolve on its own. She was seen at urgent care for rectal bleeding as well as a history of constipation and the sensation of incomplete evacuation during bowel movements. She states that she has been taking MiraLax, Colace as well as senna for a significant amount of time. She does report having a colonoscopy approximately 5 years ago and does not recall any abnormalities. She also does not report any family history of colon cancer. DESCRIPTION OF PROCEDURE: The patient was brought to the endoscopy suite, laid in the left lateral decubitus position. After adequate IV pain and sedative medications and monitored anesthesia care, a digital rectal examination was performed. Mild chronic stage II external and internal hemorrhoids were identified, which were not actively edematous nor inflamed and no bleeding. Normal sphincter tone was felt and there were no palpable masses. The endoscope was then intubated to the anus and rectum gently insufflated. The endoscope was then advanced through the valves of [place] of the rectum with proctitis identified. The endoscope was then advanced through the sigmoid colon where these inflammatory changes as well as small ulcerative plaques were identified. As we traversed the remainder of the descending, transverse and ascending colon to the cecum, a pancolitis as well as proctitis was identified. This likely represents some form of inflammatory bowel disease. Biopsies were then taken to the cecum, transverse colon, sigmoid colon and rectum while suctioning residual air. The patient tolerated the procedure well. We will await the biopsy results; however, proceed with first line therapy for active colitis with 5 amino salicylic acid 800 mg t.i.d. for the next six weeks. If she has persistence of symptoms, we will then refer her to gastroenterology for further medical therapy. Job ID: [id number] DocumentID: [id number] Dictated Date: 02/18/2021 14:58:33 Ribbon Cutter Date: 02/19/2021 01:57:22 Dictated By: JIMMIE BROOKS MD
== END 2021-02-18 15:40 | disposition home or self-care (01) ==
LOC: ENDO 12:35
PROVIDERS: ATTEND Surgery
DX: K64.1 Second degree hemorrhoids (principal); K92.1 Melena; K59.00 Constipation, unspecified; K51.00 Ulcerative (chronic) pancolitis without complications; K64.4 Residual hemorrhoidal skin tags; I10 Essential (primary) hypertension; I25.10 Atherosclerotic heart disease of native coronary artery without angina pectoris; M19.90 Unspecified osteoarthritis, unspecified site; E78.00 Pure hypercholesterolemia, unspecified; E78.5 Hyperlipidemia, unspecified; G43.909 Migraine, unspecified, not intractable, without status migrainosus; K63.89 Other specified diseases of intestine; F41.9 Anxiety disorder, unspecified; F32.9 Major depressive disorder, single episode, unspecified; Z79.899 Other long term (current) drug therapy; Z79.82 Long term (current) use of aspirin; Z90.89 Acquired absence of other organs

== ENCOUNTER → 2022-09-13 | Outpatient (CLI) | payer MEDICARE ==
[~2022-09-13] MED LIST changes: +ALBU8.5H6 IH; -POTA99TA21 PO; +POTA99TA26 PO; -RT-ALBUINH IH
--- NOTE | 2022-09-13 20:14 | Diagnostic Imaging Report ---
INDICATION: Right shoulder pain AP, oblique, and transscapular views of the right shoulder are obtained. No fracture or acute bony abnormality seen. There is mild degenerative change of the AC joint. Glenohumeral joint appears unremarkable. IMPRESSION: Mild degenerative change of the AC joint. No acute fracture or dislocation. Dictated by: Dictated on workstation # [id number]
--- NOTE | 2022-09-13 22:37 | Diagnostic Imaging Report ---
CERVICAL SPINE 3 VIEWS OR LESS INDICATION: Neck pain COMPARISON: None available. TECHNIQUE: 3 views of cervical spine FINDINGS: Normal alignment. No prevertebral soft tissue swelling. Vertebral bodies are normal in stature without ankylosis. Intervertebral disc space heights are well-preserved. Lateral masses of C1 and C2 are normal in alignment. IMPRESSION: No osseous structural abnormality in the cervical spine. Dictated by: Dictated on workstation # [id number]
== END ==
LOC: RAD 11:16
PROVIDERS: ATTEND Nurse Practitioner Family
DX: M19.011 Primary osteoarthritis, right shoulder (principal); M54.2 Cervicalgia
CPT/HCPCS: 72040; 73030

== ENCOUNTER → 2023-03-18 | Outpatient (CLI) | payer MEDICARE ==
[~2023-03-18] MED LIST changes: -LOSA100T57 PO; +LOSA100T58 PO
--- NOTE | 2023-03-18 12:13 | Diagnostic Imaging Report ---
INDICATION: Routine screening. Comparison is made with prior mammogram from 12/11/2018 and 12/23/2016. 2-D and 3-D bilateral screening mammography was performed with CAD. Scattered fibroglandular densities are identified bilaterally. The parenchymal pattern is stable. No dominant mass or malignant-appearing microcalcifications are identified. There are scattered benign calcifications. Axillae are unremarkable. IMPRESSION: No mammographic features suspicious for malignancy are identified. ACR BI-RADS Category 2: Benign findings. Result letter will be mailed to the patient. Note: At least 10% of breast cancer is not imaged by mammography. BI-RADS Category 2 Dictated by: Dictated on workstation # [id number]
== END ==
LOC: RAD 08:15
PROVIDERS: ATTEND Family Medicine
DX: Z12.31 Encounter for screening mammogram for malignant neoplasm of breast (principal)
CPT/HCPCS: 77063; 77067